=== PATIENT | male | born 1965 | race American Indian/Alaskan Native ===

== ENCOUNTER 2019-07-23 01:18 | Inpatient (IN) | payer OTHER ==
[2019-07-23] MEDS ORDERED: SODIUM CHLORIDE 0.9% 500 ML 500 ML ONE (01:40)
[2019-07-23] MEDS ORDERED: SODIUM CHLORIDE 0.9% 500 ML 500 ML IV ONE (01:43)
[2019-07-23] MEDS ORDERED: ACETAMINOPHEN 500 MG TAB PO ONE (01:44)
[2019-07-23] MEDS ORDERED: CEFEPIME/NS 2 GM/100 ML 2 GM/100 ML BAG IV ONE (01:45)
[2019-07-23] MEDS ORDERED: ACETAMINOPHEN 650 MG RECT SUPP PR ONE ×2 (01:52→06:53)
--- NOTE | 2019-07-23 02:24 | XRay Report ---
CHEST 1 VIEW 07/23/2019 1:55 AM INDICATION / CLINICAL INFORMATION: sob. COMPARISON: None available. FINDINGS: SUPPORT DEVICES: None. HEART / MEDIASTINUM: No significant abnormality. LUNGS / PLEURA: Mild perihilar interstitial edema. No acute airspace disease. No significant pleural effusion. No pneumothorax. ADDITIONAL FINDINGS: No significant additional findings. IMPRESSION: 1. Mild pulmonary edema. Signer Name: Usman Simmons MD Signed: 07/23/2019 2:20 AM Workstation Name: [id number]
[2019-07-23] MEDS ORDERED: SODIUM CHLORIDE 0.9% 1000 ML 1,000 ML ONE ×2 (02:48→11:42)
[2019-07-23] MEDS ORDERED: MIDAZOLAM 5 MG/5 ML INJ MDV IV ONE (02:55)
[2019-07-23] MEDS ORDERED: SUCCINYLCHOLINE CHLORIDE 200 MG/10 ML INJ MDV ONE (02:55)
[2019-07-23] MEDS ORDERED: ETOMIDATE 20 MG/10 ML INJ IV ONE ×2 (02:55→02:58)
[2019-07-23] MEDS ORDERED: SUCCINYLCHOLINE CHLORIDE 200 MG/10 ML INJ MDV IV ONE (02:58)
[2019-07-23] MEDS ORDERED: PROPOFOL 1,000 MG/100 ML BOTTLE IV ONE (02:59)
[2019-07-23] MEDS ORDERED: PROPOFOL 1,000 MG/100 ML BOTTLE IV SCH (03:00)
[2019-07-23] MEDS ORDERED: SODIUM CHLORIDE 0.9% 1000 ML 1,000 ML IV ONE ×5 (03:00→16:02)
[2019-07-23 03:10] LABS: Basophils % (Auto) 0.4 % (0.0-1.8); Eosinophils % (Auto) 0.1 % (0.0-4.3); Hematocrit 31.9 % (35.5-45.6); Hemoglobin 10.3 gm/dl (11.8-15.2); Lymphocytes # (Auto) 0.8 K/mm3 (1.2-5.4); Mean Corpuscular HGB Conc 33 % (32-34); Mean Corpuscular Volume 90 fl (84-94); Monocytes % (Auto) 0.4 % (0.0-7.3); Platelet Count 349 K/mm3 (140-440); Red Blood Count 3.53 M/mm3 (3.65-5.03)
[2019-07-23 03:25] LABS: Calcium 8.7 mg/dL (8.4-10.2)
[2019-07-23] MEDS ORDERED: MIDAZOLAM 5 MG/5 ML INJ MDV IV NR (03:25)
--- NOTE | 2019-07-23 03:27 | XRay Report ---
CHEST 1 VIEW 07/23/2019 3:02 AM INDICATION / CLINICAL INFORMATION: post-intubation. COMPARISON: 1:55 AM FINDINGS: SUPPORT DEVICES: Interval placement of endotracheal tube with the tip 5.5 cm above the ranjeet in expe cted position. HEART / MEDIASTINUM: Stable. LUNGS / PLEURA: Interval increase in perihilar densities. No pneumothorax. ADDITIONAL FINDINGS: No significant additional findings. IMPRESSION: 1. ET tube in expected position. 2. Interval increase in perihilar densities. Signer Name: Usman Simmons MD Signed: 07/23/2019 3:22 AM Workstation Name: [id number]
--- NOTE | 2019-07-23 03:29 | Emergency Department Report ---
ED Shortness of Breath HPI - General Chief Complaint: Dyspnea/Respdistress Stated Complaint: SOB/CHEST PAIN Time Seen by Provider: 07/23/19 01:38 Source: family, EMS Mode of arrival: Stretcher Limitations: No Limitations - History of Present Illness Initial Comments: 54-year-old male, history of hypertension and end-stage renal disease presents to ED with chest pain, shortness of breath. Patient does home hemodialysis for which his niece assists him with. Tonight, approximately 1 hour prior to arrival, niece was shading dialysis on the patient. Niece reports that there were "lots of bubbles" in the IV line. She states she called the on-call he modialysis nurse for assistance, however, the bubbles did not resolve. Patient then began complaining of right-sided chest pain and shortness of breath. He also had an episode of emesis and diarrhea. EMS was called. They reported patient had O2 sats in the 70s on room air. Also stated patient was hypotensive en route. Patient states chest pain has improved somewhat. MD Complaint: shortness of breath, chest pain -: hour(s) (1) Severity: severe Consistency: constant Improves With: nothing Worsens With: nothing Associated Symptoms: chest pain Treatments Prior to Arrival: oxygen - Related Data Home Oxygen Therapy: No Allergies Allergy/AdvReac Type Severity Reaction Status Date / Time No Known Allergies Allergy Unverified 07/23/19 01:49 ED Review of Systems ROS: Stated complaint: SOB/CHEST PAIN Other details as noted in HPI Comment: All other systems reviewed and negative Respiratory: shortness of breath Cardiovascular: chest pain ED Past Medical Hx - Past Medical History Previous Medical History?: Yes Hx Hypertension: Yes Additional medical history: Dialysis x 1 year - Surgical History Past Surgical History?: Yes Additional Surgical History: grafts left upper arm - Social History Smoking Status: Never Smoker Substance Use Type: Prescribed ED Physical Exam - General Limitations: No Limitations General appearance: alert, anxious, in distress - Head Head exam: Present: atraumatic, normocephalic - Eye Eye exam: Present: normal appearance - ENT ENT exam: Present: mucous membranes moist - Neck Neck exam: Present: normal inspection - Respiratory Respiratory exam: Present: normal lung sounds bilaterally, respiratory distress, other (tachypnea present) - Cardiovascular Cardiovascular Exam: Present: normal rhythm, tachycardia - GI/Abdominal GI/Abdominal exam: Present: soft. Absent: distended, tenderness - Extremities Exam Extremities exam: Present: normal inspection - Neurological Exam Neurological exam: Present: alert, oriented X3 - Psychiatric Psychiatric exam: Present: anxious - Skin Skin exam: Present: warm, dry, intact, normal color ED Course Vital Signs 07/23/19 07/23/19 07/23/19 01:30 01:33 01:42 Temperature 101.5 F H Pulse Rate 143 H 148 H 140 H Respiratory 40 H 44 H 32 H Rate Blood Pressure 105/50 105/50 105/50 O2 Sat by Pulse 100 96 100 Oximetry 07/23/19 07/23/19 07/23/19 01:45 02:01 02:15 Temperature Pulse Rate 139 H 137 H 149 H Respiratory 15 22 24 Rate Blood Pressure 77/45 77/45 104/40 O2 Sat by Pulse 99 100 100 Oximetry 07/23/19 07/23/19 07/23/19 02:31 02:45 03:00 Temperature Pulse Rate 163 H 157 H 167 H Respiratory 46 H 50 H Rate Blood Pressure 127/94 115/43 141/77 O2 Sat by Pulse 100 93 Oximetry 07/23/19 07/23/19 07/23/19 03:01 03:15 03:31 Temperature Pulse Rate 157 H 154 H 156 H Respiratory 37 H 29 H 36 H Rate Blood Pressure 138/73 153/80 148/88 O2 Sat by Pulse 87 86 Oximetry 07/23/19 07/23/19 07/23/19 03:45 04:00 04:15 Temperature Pulse Rate 161 H 151 H 165 H Respiratory 36 H 38 H 38 H Rate Blood Pressure 115/44 122/58 O2 Sat by Pulse 93 90 87 Oximetry 07/23/19 07/23/19 04:31 04:45 Temperature Pulse Rate 155 H 158 H Respiratory 37 H 37 H Rate Blood Pressure 134/68 134/68 O2 Sat by Pulse 86 90 Oximetry - Reevaluation(s) Reevaluation #1: 07/23/19 06:32 Pt now has an IV in the CA after multiple attempts by nurses and myself. Spoke w/ Dr Jonas, will obtain CTA - Consultations Consultation #1: 07/23/19 03:59 Spoke w/ home staging specialist, Dr Blair. States symptoms consitent with possible air embolism. Needs hyperbaric chamber. Will contact [facility]. 07/23/19 04:10 Received call back from [facility] rel[facility]. States they only do outpt hyperbarics. 07/23/19 04:16 Spoke w/ [facility], no hyperbarics. States they stopped hyperbarics "a while ago." 07/23/19 05:42 I have reached out to all hospitals in the area. This includes: - [facility] - [facility] - [facility] None of these places perform hyperbarics on intubated inpatients such as Mr Echols. I have spoken with Dr Blair and he is aware. Will admit here for supportive care. Consultation #2: 07/23/19 06:03 Spoke w/ Dr Cox, gripper installer. Will see pt. - Central Line Placement Right Femoral Consent Obtained: verbal consent Time Out Performed: Yes Patient Placed on Monitor/Pulse Ox: Yes MD Prep: mask, gown, gloves Central Line Prep: Chlorhexidine scrub Local Anesthesia Used: Lidocaine 1% Amount of Anesthesia Used (mls): 3 Ultrasound Used for Placement: No Central Line Lumen Inserted: triple Bloods Obtained for Lab: Yes Central Line Position: good blood return, all ports aspirated, flus, sutured in place with nyl Dressing Applied: Tegaderm Patient Tolerated Procedure: well Complications: none - Intubation Time Out Performed: Yes Sedative: Etomidate Mg Given: 20 Paralytic: Succinylcholine Mg Given: 200 Laryngoscope: Cory Size: 4 ET Tube Size: 7.5 Tube Placement Confirmation: visualized tube passing t, equal breath sounds bilat, no breath sounds over epi, confirmation by capnometr Patient Tolerated Procedure: well Intubation Complications: none ED Medical Decision Making - Lab Data Result diagrams: 07/23/19 02:53 07/23/19 02:53 - EKG Data -: EKG Interpreted by Ks EKG shows normal: sinus rhythm, axis, intervals, QRS complexes, ST-T waves Rate: tachycardia (rate 150) - EKG Data Interpretation: other (ST depressions, likely rate related) - Radiology Data Radiology results: report reviewed, image reviewed - Medical Decision Making 54-year-old male with likely air emboli. Patient began having complaining of chest pain and shortness of breath as his niece was initiating hemodialysis on him. There are a lot of air bubbles reportedly in the IV line. Patient was initially hypotensive, however blood pressure responded to IV fluids. Patient was initially placed on BiPAP, but was unable to tolerate and became quite anxious and tachypnea, so patient was intubated. Patient was not given the sepsis 30 mL per KG bolus due to the edema seen on his chest x-ray, and the large amount of IV fluids that he would need due to his body habitus. Blood c ultures were drawn and antibiotics initiated due to patient's fever, however this could also be consistent with air emboli. Unable to obtain CTA Chest due to inadequate IV access. Spoke with Dr. Blair, home staging specialist, who recommended transferring patient to the facility with hyperbaric chamber. However, no facility found that was able to accommodate an intubated patient. The patient's niece and sister at bedside. I have explained that patient situation is very grave, that cardiac arrest is very likely. They have exhibited understanding. Will admit to hospitalist. - Differential Diagnosis air embolism, pneumonia, ACS, PE, Critical Care Time: Yes Critical care time in (mins) excluding proc time.: 60 Critical care attestation.: If time is entered above; I have spent that time in minutes in the direct care of this critically ill patient, excluding procedure time. Critical Care Time: 60 minutes ED Disposition Clinical Impression: Acute respiratory failure with hypoxia, Air embolism, Lactic acidosis, ESRD (end stage renal disease), SIRS (systemic inflammatory response syndrome), Pulmonary edema Disposition: 09 OP ADMIT IP TO THIS HOSP Is pt being admited?: Yes Condition: Stable Instructions: Pulmonary Edema (ED) Referrals: PRIMARY CARE, [Primary Care Provider] - 3-5 Days Time of Disposition: 05:49
[2019-07-23] MEDS ORDERED: VANCOMYCIN/NS 1 GM/250 ML 1 GM/250 ML BAG IV ONE (03:32)
[2019-07-23 03:36] LABS: INR 1.22 (0.87-1.13)
[2019-07-23] MEDS ORDERED: VANCOMYCIN 2,000 MG in SODIUM CHLORIDE 0.9% 500 ML 500 ML IV ONE (03:45)
[2019-07-23] MEDS ORDERED: VANCOMYCIN 2,000 MG in SODIUM CHLORIDE 0.9% 500 ML 500 ML IV SCH (03:45)
[2019-07-23 03:55] LABS: Bacteria,Urine 1+ /HPF (Negative); Bilirubin,Urine NEG (Negative); Blood,Urine NEG (Negative); Color,Urine Yellow (Yellow); Mucus,Urine FEW /HPF; Urobilinogen,Urine < 2.0 mg/dL (<2.0)
[2019-07-23 04:11] LABS: Chol/HDL Ratio 5.12 %
[2019-07-23] MEDS: MIDAZOLAM 100 MG in SODIUM CHLORIDE 0.9% 80 ML IV SCH ×2 (05:00→16:09)
[2019-07-23] MEDS: NORepinephrine/NS 4 MG-250 ML 4 MG/250 ML BAG IV SCH ×5 (06:15→16:37)
[2019-07-23] MEDS ORDERED: NORepinephrine/NS 4 MG-250 ML 4 MG/250 ML BAG IV ONE (06:17)
[2019-07-23] MEDS ORDERED: PIPERACIL/TAZOBACTA 4.5/NS 100 0 GM/0 ML VIAL IV ONE (06:29)
[2019-07-23] MEDS: PIPERACIL-TAZO 2.25 GM/50 ML 2.25 GM/50 ML BAG IV ONE ×2 (06:30→09:29)
[2019-07-23] MEDS ORDERED: METOPROLOL TARTRATE 5 MG/5 ML INJ IV ONE (06:31)
[2019-07-23] MEDS ORDERED: ONDANSETRON 4 MG/2 ML INJ IV PRN (06:55)
[2019-07-23] MEDS ORDERED: ACETAMINOPHEN 650 MG RECT SUPP PR PRN (06:55)
--- NOTE | 2019-07-23 07:01 | History and Physical Report ---
<REGINO MARKS - Last Filed: 07/23/19 06:57> History of Present Illness Date of examination: 07/23/19 Date of admission: 07/23/2019 Chief complaint: SOB and chest pain History of present illness: 54-year-old male with ESRD on hemodialysis who presents to [facility] ED with complaints of shortness of breath and right sided chest pain. Patient niece is present at bedside and has assisted with providing history. Patient's niece is also the sole caregiver. According to nicrow, she was assisting pt with HD last night when they noticed a large amount of air in the HD line/tubing. After patient complained of right sided chest pain and shortness of breath. Arnol called HD engineering inspection assistant nurse for advice. javascript application developer nurse referred to ED for further evaluation and treatment. Upon arriving at our facility patient was hypoxic with sats in low 70's on room air. He was placed on BiPAP, but continued to desat and subsequently intubated. Pulmonary was consulted and patient needs hyperbarics treatment. Several facilities in [place] was called for possible transfer. Unfortunately, so far none are able to perform hyperbarics on intubated pt. A call to [facility] has been placed, pending acceptance. Past History Past Medical History: diabetes, ESRD (on home HD (x1 year)) Past Surgical History: Other (JODY AV fistula) Social history: lives with family ( niece who is also caregiver) Family history: no significant family history Medications and Allergies Allergies Allergy/AdvReac Type Severity Reaction Status Date / Time No Known Allergies Allergy Unverified 07/23/19 01:49 Home Medications Medication Instructions Recorded Confirmed Last Taken Type Dextrose 50% in Water [D50W (25GM) 50 ml IV Q30MIN PRN syringe 07/23/19 Unknown Rx Syringe] Enoxaparin 30 mg SUB-Q QDAY syringe 07/23/19 Unknown Rx Midazolam 100 mg IV TITR vial 07/23/19 Unknown Rx Oseltamivir Phosphate [Tamiflu] 30 mg PO DAILY oralsyr 07/23/19 Unknown Rx Phenylephrine 100 mg IV TITR vial 07/23/19 Unknown Rx Sodium Bicarbonate 150 meq IV DIRECT vial 07/23/19 Unknown Rx Sodium Bicarbonate [SODIUM 50 meq IV ONCE PRN syringe 07/23/19 Unknown Rx BICARBONATE 50mEq Syringe] Sodium Chloride 0.9% Int [Sodium 10 ml IV BID syringe 07/23/19 Unknown Rx Chloride Flush Syringe 10 ml] Sodium Chloride 0.9% [NaCl 0.9% 100 ml IV TITR bag 07/23/19 Unknown Rx 100 ML] Vasopressin [Vasostrict] 20 unit IV DIRECT vial 07/23/19 Unknown Rx Active Meds: Active Medications Propofol (Diprivan 10 Mg/Ml) 1,000 mg in 100 mls @ 3.916 mls/hr IV TITR JOSEFINA; Protocol Last Titration: 07/23/19 04:00 Dose: 25 mcg/kg/min, 19.582 mls/hr Documented by: Midazolam HCl 100 mg/ Sodium (Chloride) 100 mls @ 2 mls/hr IV TITR JOSEFINA; Protocol Last Admin: 07/23/19 05:00 Dose: 2 mg/hr, 2 mls/hr Documented by: Piperacillin Sod/Tazobactam Sod (Zosyn/Ns 2.25 Gm/50ml) 2.25 gm in 50 mls @ 100 mls/hr IV ONCE ONE; Protocol Stop: 07/23/19 07:29 Last Admin: 07/23/19 06:30 Dose: 100 mls/hr Documented by: Norepinephrine (Levophed Drip 4 Mg/Ns 250 Ml) 4 mg in 250 mls @ 7.5 mls/hr IV TITR JOSEFINA; Protocol Last Admin: 07/23/19 06:15 Dose: 2 mcg/min, 7.5 mls/hr Documented by: Midazolam HCl (Versed) 5 mg IV ONCE NR Stop: 07/23/19 08:15 Last Admin: 07/23/19 03:27 Dose: 5 mg Documented by: Review of Systems ROS unobtainable: due to mental status Exam - Physical Exam Narrative exam: General appearance: Present: Intubated, sedated, obese, well-developed, adult male - EENT Eyes: Present: PERRL, EOM intact ENT: hearing intact, normal - Neck Neck: Present: supple, normal ROM - Respiratory Respiratory effort: Non-labored Respiratory: bilateral: CTA with diminished bases bilaterally - Cardiovascular Heart rate:158 (bpm) Rhythm:ST Heart Sounds: Present: S1, S2. - Extremities Extremities: no ischemia, pulses intact - Peripheral Assessment Peripheral Pulses: within normal limits - Abdominal General gastrointestinal: Obese, soft, non-tender, normal bowel sounds, - Integumentary Integumentary: Present: warm, dry - Musculoskeletal Musculoskeletal: Deferred -Neurological Neurological: CN II-XII grossly intact - Psychiatric Psychiatric: Unable to assess - Constitutional Vitals: Temp Pulse Resp BP Pulse Ox 99.9 F H 136 H 37 H 104/72 90 07/23/19 05:30 07/23/19 06:49 07/23/19 04:45 07/23/19 06:49 07/23/19 04:45 Results - Labs CBC & Chem 7: 07/23/19 02:53 07/23/19 02:53 Labs: Laboratory Last Values WBC 6.9 K/mm3 (4.5-11.0) 07/23/19 02:53 RBC 3.53 M/mm3 (3.65-5.03) L 07/23/19 02:53 Hgb 10.3 gm/dl (11.8-15.2) L 07/23/19 02:53 Hct 31.9 % (35.5-45.6) L 07/23/19 02:53 MCV 90 fl (84-94) 07/23/19 02:53 MCH 29 pg (28-32) 07/23/19 02:53 MCHC 33 % (32-34) 07/23/19 02:53 RDW 14.0 % (13.2-15.2) 07/23/19 02:53 Plt Count 349 K/mm3 (140-440) 07/23/19 02:53 Lymph % (Auto) 12.0 % (13.4-35.0) L 07/23/19 02:53 Emery % (Auto) 0.4 % (0.0-7.3) 07/23/19 02:53 Eos % (Auto) 0.1 % (0.0-4.3) 07/23/19 02:53 Baso % (Auto) 0.4 % (0.0-1.8) 07/23/19 02:53 Lymph # 0.8 K/mm3 (1.2-5.4) L 07/23/19 02:53 Emery # 0.0 K/mm3 (0.0-0.8) 07/23/19 02:53 Eos # 0.0 K/mm3 (0.0-0.4) 07/23/19 02:53 Baso # 0.0 K/mm3 (0.0-0.1) 07/23/19 02:53 Seg Neutrophils % 87.1 % (40.0-70.0) H 07/23/19 02:53 Seg Neutrophils # 6.0 K/mm3 (1.8-7.7) 07/23/19 02:53 PT 15.3 Sec. (12.2-14.9) H 07/23/19 02:53 INR 1.22 (0.87-1.13) H 07/23/19 02:53 APTT 28.0 Sec. (24.2-36.6) 07/23/19 02:53 POC ABG pH 7.305 (7.35-7.45) L 07/23/19 03:57 POC ABG pCO2 40.7 (35-45) 07/23/19 03:57 POC ABG pO2 64 (80-105) L 07/23/19 03:57 POC ABG HCO3 20.3 (22-26 mml/L) 07/23/19 03:57 POC ABG Total CO2 22 (23-27mmol/L) 07/23/19 03:57 POC ABG O2 Sat 90 07/23/19 03:57 POC ABG Base Excess -6 ((-2) - (+3)mmol/L) 07/23/19 03:57 FiO2 100 % 07/23/19 03:57 Sodium 141 mmol/L (137-145) 07/23/19 02:53 Potassium 3.4 mmol/L (3.6-5.0) L 07/23/19 02:53 Chloride 100.0 mmol/L (98-107) 07/23/19 02:53 Carbon Dioxide 20 mmol/L (22-30) L 07/23/19 02:53 Anion Gap 24 mmol/L 07/23/19 02:53 BUN 62 mg/dL (9-20) H 07/23/19 02:53 Creatinine 9.8 mg/dL (0.8-1.5) H 07/23/19 02:53 Estimated GFR 7 ml/min 07/23/19 02:53 BUN/Creatinine Ratio 6 % 07/23/19 02:53 Glucose 117 mg/dL (75-100) H 07/23/19 02:53 POC Glucose 131 (70-105) H 07/23/19 04:52 Lactic Acid 4.30 mmol/L (0.7-2.0) H* 07/23/19 05:08 Calcium 8.7 mg/dL (8.4-10.2) 07/23/19 02:53 Troponin T 0.068 ng/mL (0.00-0.029) H 07/23/19 02:53 NT-Pro-B Natriuret Pep 536.3 pg/mL (0-900) 07/23/19 02:53 Triglycerides 213 mg/dL (2-149) H 07/23/19 02:53 Cholesterol 164 mg/dL (50-199) 07/23/19 02:53 LDL Cholesterol Direct 112 mg/dL (50-130) 07/23/19 02:53 HDL Cholesterol 32 mg/dL (40-59) L 07/23/19 02:53 Cholesterol/HDL Ratio 5.12 % 07/23/19 02:53 Urine Color Yellow (Yellow) 07/23/19 03:30 Urine Turbidity Clear (Clear) 07/23/19 03:30 Urine pH 6.0 (5.0-7.0) 07/23/19 03:30 Ur Specific Everett 1.014 (1.003-1.030) 07/23/19 03:30 Urine Protein 100 mg/dl mg/dL (Negative) 07/23/19 03:30 Urine Glucose (UA) Neg mg/dL (Negative) 07/23/19 03:30 Urine Ketones Neg mg/dL (Negative) 07/23/19 03:30 Urine Blood Neg (Negative) 07/23/19 03:30 Urine Nitrite Neg (Negative) 07/23/19 03:30 Urine Bilirubin Neg (Negative) 07/23/19 03:30 Urine Urobilinogen < 2.0 mg/dL (<2.0) 07/23/19 03:30 Ur Leukocyte Esterase Sm (Negative) 07/23/19 03:30 Urine WBC (Auto) 11.0 /HPF (0.0-6.0) H 07/23/19 03:30 Urine RBC (Auto) 5.0 /HPF (0.0-6.0) 07/23/19 03:30 U Epithel Cells (Auto) < 1.0 /HPF (0-13.0) 07/23/19 03:30 Urine Bacteria (Auto) 1+ /HPF (Negative) 07/23/19 03:30 Urine Mucus Few /HPF 07/23/19 03:30 - Imaging and Cardiology Imaging and Cardiology: CXR: FINDINGS: SUPPORT DEVICES: None. HEART / MEDIASTINUM: No significant abnormality. LUNGS / PLEURA: Mild perihilar interstitial edema. No acute airspace disease. No significant pleural effusion. No pneumothorax. ADDITIONAL FINDINGS: No significant additional findings. IMPRESSION: 1. Mild pulmonary edema. Assessment and Plan Assessment and plan: 54-year-old male with ESRD on hemodialysis who presents to [facility] ED with complaints of shortness of breath and right sided chest pain. At the time of my donation patient is intubated and sedated. Patient is unable to provide history. Air embolism -CXR Mild pulmonary edema -Patient reports lots of bubbles in HD line/tubing -After patient complains of shortness of breath and CP Acute hypoxic respiratory failure -No Baseline home oxygen requirements -Currently intubated on vent -Monitor saturations -Monitor CO2 -Continue supplemental oxygen wean as tolerated ESRD on HD -on Home HD for the past year -Most recently dialyze 07/22/19; incomplete session due to large volume of air bubbles in Lactic acidosis -Lactic acid 4.30 ( trending down from 4.70) -on IV Abx -on IVF -continue to monitor Hypotension -SBP 100's -Unresponsive to fluid resuscitation -On IVF -On Levophed gtt -Continue to monitor BP -Hold all antihypertensive meds UTI -Hx of recurrent UTI -Urine WBC 11 -Urine culture pending -On IV Abx DVT PPX -on Lovenox Advance Directives: No VTE prophylaxis?: Chemical Plan of care discussed with patient/family: Yes <SHAILA MORALES - Last Filed: 07/24/19 00:29> History of Present Illness Date of admission: 07/23/19 06:55 Exam - Constitutional Vitals: Temp Pulse Resp BP Pulse Ox 99.4 F 85 20 150/130 99 07/23/19 16:00 07/23/19 16:21 07/23/19 16:21 07/23/19 16:41 07/23/19 16:21 Results - Labs CBC & Chem 7: 07/23/19 09:25 07/23/19 02:53 Labs: Laboratory Last Values WBC 15.8 K/mm3 (4.5-11.0) H 07/23/19 09:25 RBC 3.06 M/mm3 (3.65-5.03) L 07/23/19 09:25 Hgb 8.9 gm/dl (11.8-15.2) L 07/23/19 09:25 Hct 27.4 % (35.5-45.6) L 07/23/19 09:25 MCV 90 fl (84-94) 07/23/19 09:25 MCH 29 pg (28-32) 07/23/19 09:25 MCHC 33 % (32-34) 07/23/19 09:25 RDW 14.4 % (13.2-15.2) 07/23/19 09:25 Plt Count 268 K/mm3 (140-440) 07/23/19 09:25 Lymph % (Auto) 12.0 % (13.4-35.0) L 07/23/19 02:53 Emery % (Auto) 0.4 % (0.0-7.3) 07/23/19 02:53 Eos % (Auto) 0.1 % (0.0-4.3) 07/23/19 02:53 Baso % (Auto) 0.4 % (0.0-1.8) 07/23/19 02:53 Lymph # 0.8 K/mm3 (1.2-5.4) L 07/23/19 02:53 Emery # 0.0 K/mm3 (0.0-0.8) 07/23/19 02:53 Eos # 0.0 K/mm3 (0.0-0.4) 07/23/19 02:53 Baso # 0.0 K/mm3 (0.0-0.1) 07/23/19 02:53 Add Manual Diff Complete 07/23/19 09:25 Total Counted 100 07/23/19 09:25 Seg Neutrophils % In School Suspension Aide 07/23/19 09:25 Seg Neuts % (Manual) 83.0 % (40.0-70.0) H 07/23/19 09:25 Band Neutrophils % 11.0 % 07/23/19 09:25 Lymphocytes % (Manual) 1.0 % (13.4-35.0) L 07/23/19 09:25 Reactive Lymphs % (Man) 0 % 07/23/19 09:25 Monocytes % (Manual) 0 % (0.0-7.3) 07/23/19 09:25 Eosinophils % (Manual) 0 % (0.0-4.3) 07/23/19 09:25 Basophils % (Manual) 0 % (0.0-1.8) 07/23/19 09:25 Metamyelocytes % 5.0 % 07/23/19 09:25 Myelocytes % 0 % 07/23/19 09:25 Promyelocytes % 0 % 07/23/19 09:25 Blast Cells % 0 % 07/23/19 09:25 Nucleated RBC % 1.0 % (0.0-0.9) H 07/23/19 09:25 Seg Neutrophils # 6.0 K/mm3 (1.8-7.7) 07/23/19 02:53 Seg Neutrophils # Man 13.1 K/mm3 (1.8-7.7) H 07/23/19 09:25 Band Neutrophils # 1.7 K/mm3 07/23/19 09:25 Lymphocytes # (Manual) 0.2 K/mm3 (1.2-5.4) L 07/23/19 09:25 Abs React Lymphs (Man) 0.0 K/mm3 07/23/19 09:25 Monocytes # (Manual) 0.0 K/mm3 (0.0-0.8) 07/23/19 09:25 Eosinophils # (Manual) 0.0 K/mm3 (0.0-0.4) 07/23/19 09:25 Basophils # (Manual) 0.0 K/mm3 (0.0-0.1) 07/23/19 09:25 Metamyelocytes # 0.8 K/mm3 07/23/19 09:25 Myelocytes # 0.0 K/mm3 07/23/19 09:25 Promyelocytes # 0.0 K/mm3 07/23/19 09:25 Blast Cells # 0.0 K/mm3 07/23/19 09:25 WBC Morphology Not Reportable 07/23/19 09:25 Hypersegmented Neuts Not Reportable 07/23/19 09:25 Hyposegmented Neuts Not Reportable 07/23/19 09:25 Hypogranular Neuts Not Reportable 07/23/19 09:25 Smudge Cells Not Reportable 07/23/19 09:25 Toxic Granulation Not Reportable 07/23/19 09:25 Toxic Vacuolation 1+ 07/23/19 09:25 Dohle Bodies Not Reportable 07/23/19 09:25 Pelger-Huet Anomaly Not Reportable 07/23/19 09:25 Mago Rods Not Reportable 07/23/19 09:25 Platelet Estimate Consistent w auto 07/23/19 09:25 Clumped Platelets Not Reportable 07/23/19 09:25 Plt Clumps, EDTA Not Reportable 07/23/19 09:25 Large Platelets Few 07/23/19 09:25 Giant Platelets Not Reportable 07/23/19 09:25 Platelet Satelliting Not Reportable 07/23/19 09:25 Plt Morphology Comment Not Reportable 07/23/19 09:25 RBC Morphology Not Reportable 07/23/19 09:25 Dimorphic RBCs Not Reportable 07/23/19 09:25 Polychromasia Not Reportable 07/23/19 09:25 Hypochromasia Not Reportable 07/23/19 09:25 Poikilocytosis Not Reportable 07/23/19 09:25 Anisocytosis 1+ 07/23/19 09:25 Microcytosis Not Reportable 07/23/19 09:25 Macrocytosis Not Reportable 07/23/19 09:25 Spherocytes Not Reportable 07/23/19 09:25 Pappenheimer Bodies Not Reportable 07/23/19 09:25 Sickle Cells Not Reportable 07/23/19 09:25 Target Cells Not Reportable 07/23/19 09:25 Tear Drop Cells Not Reportable 07/23/19 09:25 Ovalocytes Not Reportable 07/23/19 09:25 Helmet Cells Not Reportable 07/23/19 09:25 Rao-Vici Bodies Not Reportable 07/23/19 09:25 Milroy Rings Not Reportable 07/23/19 09:25 Noemi Cells Not Reportable 07/23/19 09:25 Bite Cells Not Reportable 07/23/19 09:25 Crenated Cell Not Reportable 07/23/19 09:25 Elliptocytes Not Reportable 07/23/19 09:25 Acanthocytes (Spur) Not Reportable 07/23/19 09:25 Rouleaux Not Reportable 07/23/19 09:25 Hemoglobin C Crystals Not Reportable 07/23/19 09:25 Schistocytes Not Reportable 07/23/19 09:25 Malaria parasites Not Reportable 07/23/19 09:25 Shahriar Bodies Not Reportable 07/23/19 09:25 Hem Pathologist Commnt No 07/23/19 09:25 PT 15.3 Sec. (12.2-14.9) H 07/23/19 02:53 INR 1.22 (0.87-1.13) H 07/23/19 02:53 APTT 28.0 Sec. (24.2-36.6) 07/23/19 02:53 POC ABG pH 7.295 (7.35-7.45) L 07/23/19 11:11 POC ABG pCO2 37.7 (35-45) 07/23/19 11:11 POC ABG pO2 55 (80-105) L 07/23/19 11:11 POC ABG HCO3 18.4 (22-26 mml/L) 07/23/19 11:11 POC ABG Total CO2 19 (23-27mmol/L) 07/23/19 11:11 POC ABG O2 Sat 85 07/23/19 11:11 POC ABG Base Excess -8 ((-2) - (+3)mmol/L) 07/23/19 11:11 FiO2 100 % 07/23/19 11:11 Sodium 141 mmol/L (137-145) 07/23/19 02:53 Potassium 3.4 mmol/L (3.6-5.0) L 07/23/19 02:53 Chloride 100.0 mmol/L (98-107) 07/23/19 02:53 Carbon Dioxide 20 mmol/L (22-30) L 07/23/19 02:53 Anion Gap 24 mmol/L 07/23/19 02:53 BUN 62 mg/dL (9-20) H 07/23/19 02:53 Creatinine 9.8 mg/dL (0.8-1.5) H 07/23/19 02:53 Estimated GFR 7 ml/min 07/23/19 02:53 BUN/Creatinine Ratio 6 % 07/23/19 02:53 Glucose 117 mg/dL (75-100) H 07/23/19 02:53 POC Glucose 79 (70-105) 07/23/19 16:15 Lactic Acid 5.20 mmol/L (0.7-2.0) H* 07/23/19 10:33 Calcium 8.7 mg/dL (8.4-10.2) 07/23/19 02:53 Troponin T 0.068 ng/mL (0.00-0.029) H 07/23/19 02:53 NT-Pro-B Natriuret Pep 536.3 pg/mL (0-900) 07/23/19 02:53 Triglycerides 213 mg/dL (2-149) H 07/23/19 02:53 Cholesterol 164 mg/dL (50-199) 07/23/19 02:53 LDL Cholesterol Direct 112 mg/dL (50-130) 07/23/19 02:53 HDL Cholesterol 32 mg/dL (40-59) L 07/23/19 02:53 Cholesterol/HDL Ratio 5.12 % 07/23/19 02:53 Urine Color Yellow (Yellow) 07/23/19 03:30 Urine Turbidity Clear (Clear) 07/23/19 03:30 Urine pH 6.0 (5.0-7.0) 07/23/19 03:30 Ur Specific Everett 1.014 (1.003-1.030) 07/23/19 03:30 Urine Protein 100 mg/dl mg/dL (Negative) 07/23/19 03:30 Urine Glucose (UA) Neg mg/dL (Negative) 07/23/19 03:30 Urine Ketones Neg mg/dL (Negative) 07/23/19 03:30 Urine Blood Neg (Negative) 07/23/19 03:30 Urine Nitrite Neg (Negative) 07/23/19 03:30 Urine Bilirubin Neg (Negative) 07/23/19 03:30 Urine Urobilinogen < 2.0 mg/dL (<2.0) 07/23/19 03:30 Ur Leukocyte Esterase Sm (Negative) 07/23/19 03:30 Urine WBC (Auto) 11.0 /HPF (0.0-6.0) H 07/23/19 03:30 Urine RBC (Auto) 5.0 /HPF (0.0-6.0) 07/23/19 03:30 U Epithel Cells (Auto) < 1.0 /HPF (0-13.0) 07/23/19 03:30 Urine Bacteria (Auto) 1+ /HPF (Negative) 07/23/19 03:30 Urine Mucus Few /HPF 07/23/19 03:30 Assessment and Plan Assessment and plan: This is a 54-year-old man with history of diabets, end-stage renal disease who does home hemodialysis was brought to the emergency room for evaluation. The patient was getting his hemodialysis done with the help of his knees at home, she stated that lots of bubbles got in the line, shortly after the patient developed chest pain, shortness of breath. EMS stated that his sats was in the 70s and he was hypertensive. In the emergency room he was on the BiPAP which she failed and was subsequently intubated. He is also sedated and was given vancomycin and cefepime fpor SIRS. His initial heart rate was in the 170s, he was given Tylenol which brought him down to the 130s. Blood pressure has been difficult to obtain, his blood pressure now is in the 70s, start Levophed drip, also start Zosyn and continue vancomycin, consult infectious disease. Patient was made to lie in his left side, IV Lopressor given one time for tachycardia .Emergency room physician and made several calls to transfer the patient for hyperbaric treatment, none is accepted the patient because he is vented. Calls were made to [facility], [facility] [place], [place], [facility] [place]. I have spoken with the family at length regarding the gravity of the situation. I have discussed the case with the [facility] in [place], they have accepted the patient they will get back to us. Care was turned over to Dr. Johnson, Dr Blair updated. CT chest, head are pending, please follow CCT 40 minutes
[2019-07-23] MEDS ORDERED: POTASSIUM CHLORIDE 10 MEQ 10 MEQ/100 ML BAG IV ONE (07:04)
[2019-07-23] MEDS: fentaNYL 100 MCG/2 ML INJ IV PRN ×2 (07:55→08:35)
[2019-07-23] MEDS: fentaNYL DRIP Premix 2,000 MCG/100 ML BAG IV SCH ×2 (08:00→13:51)
--- NOTE | 2019-07-23 09:04 | Cat Scan Report ---
CT HEAD WITHOUT CONTRAST INDICATION / CLINICAL INFORMATION: AMS. TECHNIQUE: Axial imaging performed from the skull apex through the skull base without the use of cont rast. Sagittal and coronal reformatted images. All CT scans at this location are performed using CT dose reduction for ALARA by means of automated exposure control. COMPARISON: None available. FINDINGS: CEREBRAL PARENCHYMA: Mild nonspecific chronic periventricular white matter changes are identified. Th e remaining brain parenchyma demonstrates normal density. HEMORRHAGE: None. EXTRA-AXIAL SPACES: Normal in size and morphology for the patient's age. VENTRICULAR SYSTEM: Normal in size and morphology for the patient's age. MIDLINE SHIFT OR HERNIATION: None. CEREBELLUM / BRAINSTEM: No significant abnormality. CALVARIUM: No significant abnormality. ORBITS: Normal as visualized. PARANASAL SINUSES / MASTOID AIR CELLS: Normal as visualized. SOFT TISSUES of HEAD: No significant abnormality. ADDITIONAL FINDINGS: None. IMPRESSION: No acute intracranial abnormality. Nonspecific chronic white matter changes which are likely appropri ate for this person's age. Signer Name: Arturo Ferrari Jr, MD Signed: 07/23/2019 9:00 AM Workstation Name: [id number]
[2019-07-23 09:49] LABS: Hematocrit 27.4 % (35.5-45.6); Hemoglobin 8.9 gm/dl (11.8-15.2); Mean Corpuscular HGB Conc 33 % (32-34); Mean Corpuscular Volume 90 fl (84-94); Platelet Count 268 K/mm3 (140-440); Red Blood Count 3.06 M/mm3 (3.65-5.03); Red Cell Distribution Width 14.4 % (13.2-15.2)
[2019-07-23] MEDS ORDERED: ENOXAPARIN 30 MG/0.3 ML INJ SUB-Q SCH (10:00)
--- NOTE | 2019-07-23 10:13 | Cat Scan Report ---
CTA CHEST WITH CONTRAST INDICATION : Shortness of breath. TECHNIQUE: Axial imaging performed through the chest, with contrast bolus timing set to maximize opa cification of the pulmonary arteries. Sagittal and coronal reformatted images. 3-plane MIP reformatte d images were obtained. All CT scans at this location are performed using CT dose reduction for ALAR A by means of automated exposure control. 100 mL of intravenous contrast administered. COMPARISON: None FINDINGS: Bolus: Contrast bolus timing is adequate. The images are somewhat limited secondary to breathing mot ion artifact. The patient is intubated. Resolution in the distal, small pulmonary arteries is limited . PTE: No filling defect is present to suggest PTE. Limited evaluation of the distal, small pulmonary arteries. Mediastinum: Mild cardiomegaly. No pericardial effusion. The mediastinal vessels are within normal l imits. No pathologic mediastinal adenopathy. A nasogastric tube is coiled upon itself in the esophag us. Lungs: Moderate to large areas of consolidation are identified in the posterior upper lobes and lowe r lobes. It is unclear if this represents infectious consolidations or large areas of atelectasis. Th e anterior lung zones are unremarkable. Small bilateral layering pleural effusions are noted. No pneu mothorax. Bones: Degenerative changes in the spine with nothing acute. Upper abdomen: Limited imaging of the upper abdomen shows nothing acute. IMPRESSION: No evidence for pulmonary embolus although the distal, small pulmonary arteries are poorly imaged. Mild CHF/volume overload. Bilateral lung consolidations as described. Large areas of atelectasis versus infection. The nasogastric tube is coiled in the distal esophagus. Signer Name: Arturo Ferrari Jr, MD Signed: 07/23/2019 10:09 AM Workstation Name: [id number]
[2019-07-23 11:08] LABS: Band Neutrophils # (Manual) 1.7 K/mm3; Basophils % (Manual) 0 % (0.0-1.8); Eosinophils % (Manual) 0 % (0.0-4.3); Monocytes % (Manual) 0 % (0.0-7.3); Total Cells Counted 100; Toxic Vacuolation 1+
[2019-07-23 11:09] LABS: Anisocytosis 1+; Large Platelets Few; Platelet Estimate Consistent w Auto
--- NOTE | 2019-07-23 11:36 | Consultation ---
History of Present Illness Consult date: 07/23/19 Requesting physician: DEJAH FLYNN Reason for consult: hypoxemia History of present illness: 54 y/o, obese male on HD at home (most likely PD) admitted with acute hypoxic respiratory failure, most likely secondary to air embolism. Patient is heavily sedated on the VENT. 100% FiO2 and PEEP of 10 with last PAO2 of 55 on these settings. Per notes, niece was helping with HD catheter and noticed a lot of bubbles in the line. When she called the HD nurse they instructed her to come to ED. Patient was awake and alert initially from what I can tell by charting and then decompensated in the ED. Intubated and now requires pressor therapy. Most likely this is from air embolism. Past History Past Medical History: diabetes, ESRD (on home HD (x1 year)) Past Surgical History: Other (JODY AV fistula) Social history: lives with family ( niece who is also caregiver) Family history: no significant family history Medications and Allergies Allergies Allergy/AdvReac Type Severity Reaction Status Date / Time No Known Allergies Allergy Unverified 07/23/19 01:49 Active Meds: Active Medications Acetaminophen (Tylenol) 650 mg NM Q4H PRN PRN Reason: Pain MILD(1-3)/Fever >100.5/HAYES Last Admin: 07/23/19 10:03 Dose: 650 mg Documented by: Enoxaparin Sodium (Enoxaparin) 30 mg SUB-Q QDAY JOSEFINA Fentanyl (Sublimaze) 50 mcg IV Q10MIN PRN PRN Reason: ANALGESIA Last Admin: 07/23/19 08:35 Dose: 50 mcg Documented by: Midazolam HCl 100 mg/ Sodium (Chloride) 100 mls @ 2 mls/hr IV TITR JOSEFINA; Protocol Last Titration: 07/23/19 07:00 Dose: 5 mg/hr, 5 mls/hr Documented by: Norepinephrine (Levophed Drip 4 Mg/Ns 250 Ml) 4 mg in 250 mls @ 7.5 mls/hr IV TITR JOSEFINA; Protocol Last Admin: 07/23/19 11:31 Dose: 24 mcg/min, 90 mls/hr Documented by: Piperacillin Sod/Tazobactam Sod (Zosyn/Ns 2.25 Gm/50ml) 2.25 gm in 50 mls @ 100 mls/hr IV Q8HR JOSEFINA; Protocol Fentanyl Citrate (Fentanyl Drip Premix) 2,000 mcg in 100 mls @ 6.527 mls/hr IV TITR JOSEFINA; Protocol Last Titration: 07/23/19 08:35 Dose: 2 mcg/kg/hr, 13.054 mls/hr Documented by: Ondansetron HCl (Zofran) 4 mg IV Q8H PRN PRN Reason: Nausea And Vomiting Sodium Chloride (Sodium Chloride Flush Syringe 10 Ml) 10 ml IV BID JOSEFINA Sodium Chloride (Sodium Chloride Flush Syringe 10 Ml) 10 ml IV PRN PRN PRN Reason: LINE FLUSH Physical Examination Vital signs: Vital Signs Pulse Resp BP Pulse Ox 143 H 40 H 105/50 100 07/23/19 01:30 07/23/19 01:30 07/23/19 01:30 07/23/19 01:30 Results - Laboratory Findings CBC and BMP: 07/23/19 09:25 07/23/19 02:53 ABG POC ABG pH 7.295 (7.35-7.45) L 07/23/19 11:11 POC ABG pCO2 37.7 (35-45) 07/23/19 11:11 POC ABG pO2 55 (80-105) L 07/23/19 11:11 POC ABG HCO3 18.4 (22-26 mml/L) 07/23/19 11:11 POC ABG Total CO2 19 (23-27mmol/L) 07/23/19 11:11 POC ABG O2 Sat 85 07/23/19 11:11 PT/INR, D-dimer PT 15.3 Sec. (12.2-14.9) H 07/23/19 02:53 INR 1.22 (0.87-1.13) H 07/23/19 02:53 Abnormal lab findings: Abnormal Labs 07/23/19 07/23/19 07/23/19 02:53 02:53 02:53 WBC RBC 3.53 L Hgb 10.3 L Hct 31.9 L Lymph % (Auto) 12.0 L Lymph # 0.8 L Seg Neutrophils % 87.1 H Seg Neuts % (Manual) Lymphocytes % (Manual) Nucleated RBC % Seg Neutrophils # Man Lymphocytes # (Manual) PT 15.3 H INR 1.22 H POC ABG pH POC ABG pO2 Potassium 3.4 L Carbon Dioxide 20 L BUN 62 H Creatinine 9.8 H Glucose 117 H POC Glucose Lactic Acid Troponin T 0.068 H Triglycerides 213 H HDL Cholesterol 32 L Urine WBC (Auto) 07/23/19 07/23/19 07/23/19 02:53 03:30 03:57 WBC RBC Hgb Hct Lymph % (Auto) Lymph # Seg Neutrophils % Seg Neuts % (Manual) Lymphocytes % (Manual) Nucleated RBC % Seg Neutrophils # Man Lymphocytes # (Manual) PT INR POC ABG pH 7.305 L POC ABG pO2 64 L Potassium Carbon Dioxide BUN Creatinine Glucose POC Glucose Lactic Acid 4.70 H* Troponin T Triglycerides HDL Cholesterol Urine WBC (Auto) 11.0 H 07/23/19 07/23/19 07/23/19 04:03 04:52 05:08 WBC RBC Hgb Hct Lymph % (Auto) Lymph # Seg Neutrophils % Seg Neuts % (Manual) Lymphocytes % (Manual) Nucleated RBC % Seg Neutrophils # Man Lymphocytes # (Manual) PT INR POC ABG pH POC ABG pO2 Potassium Carbon Dioxide BUN Creatinine Glucose POC Glucose 131 H Lactic Acid 4.30 H* 4.30 H* Troponin T Triglycerides HDL Cholesterol Urine WBC (Auto) 07/23/19 07/23/19 07/23/19 09:25 09:25 10:33 WBC 15.8 H RBC 3.06 L Hgb 8.9 L Hct 27.4 L Lymph % (Auto) Lymph # Seg Neutrophils % Seg Neuts % (Manual) 83.0 H Lymphocytes % (Manual) 1.0 L Nucleated RBC % 1.0 H Seg Neutrophils # Man 13.1 H Lymphocytes # (Manual) 0.2 L PT INR POC ABG pH POC ABG pO2 Potassium Carbon Dioxide BUN Creatinine Glucose POC Glucose Lactic Acid 3.70 H* 5.20 H* Troponin T Triglycerides HDL Cholesterol Urine WBC (Auto) 07/23/19 11:11 WBC RBC Hgb Hct Lymph % (Auto) Lymph # Seg Neutrophils % Seg Neuts % (Manual) Lymphocytes % (Manual) Nucleated RBC % Seg Neutrophils # Man Lymphocytes # (Manual) PT INR POC ABG pH 7.295 L POC ABG pO2 55 L Potassium Carbon Dioxide BUN Creatinine Glucose POC Glucose Lactic Acid Troponin T Triglycerides HDL Cholesterol Urine WBC (Auto) Assessment and Plan 54 y/o male with acute respiratory failure, most likely secondary to large air embolism. I have called as well as the ED physician who was on overnight at my r ecommendation to look for transfer to an instititution in which inpatient hyperbaric therapy can be given, especially to a vented patient. IN the [facility] area, no one is capable of this, not even at tertiary care institutions. I have also called [facility] as well. I spoke with [facility] who states that [facility] in [place] would except patient however I am not sure how stable he would be for such long travel. In the mean time, we will do the following. Continue vent support. Attempt to place patient in left lateral decub position Will also use some trendelenberg for help with BP and air positioning Vasopressor support, will add vaso if needed May need to consider BiVent therapy to help with oxygenation Overall prognosis is extremely guarded to poor. Per chart this has been d iscussed with family, I have not met them yet.
--- NOTE | 2019-07-23 11:36 | XRay Report ---
ABDOMEN 1 VIEW(S) at 1103 hours INDICATION / CLINICAL INFORMATION: OGT placement. COMPARISON: 07/23/2019 at 1044 hours FINDINGS: TUBES / LINES: The nasogastric tube has been repositioned and terminates in the mid stomach. BOWEL GAS PATTERN: No significant abnormality. FREE AIR / EXTRALUMINAL GAS: None seen. ADDITIONAL FINDINGS: Cardiomegaly and pulmonary venous congestion are stable. IMPRESSION: No significant abnormality. The nasogastric tube terminates in the stomach. Signer Name: Arturo Ferrari Jr, MD Signed: 07/23/2019 11:32 AM Workstation Name: [id number]
--- NOTE | 2019-07-23 11:37 | XRay Report ---
ABDOMEN 1 VIEW(S) 1042 hours INDICATION / CLINICAL INFORMATION: NGT placement/confirmation. COMPARISON: None available. FINDINGS: TUBES / LINES: The nasogastric tube is coiled in the esophagus. Replacement is recommended. BOWEL GAS PATTERN: No significant abnormality. FREE AIR / EXTRALUMINAL GAS: None seen. ADDITIONAL FINDINGS: Cardiomegaly and pulmonary venous congestion is suspected. IMPRESSION: The nasogastric tube is coiled in the esophagus. Signer Name: Arturo Ferrari Jr, MD Signed: 07/23/2019 11:33 AM Workstation Name: [id number]
[2019-07-23] MEDS ORDERED: FAMOTIDINE 20 MG/2 ML INJ IV SCH (14:00)
[2019-07-23] MEDS ORDERED: PIPERACIL-TAZO 2.25 GM/50 ML 2.25 GM/50 ML BAG IV SCH (14:00)
[2019-07-23] MEDS ORDERED: OSELTAMIVIR PHOSPHATE 30 MG/5 ML ORALSYR PO SCH (14:00)
[2019-07-23] MEDS ORDERED: VASOPRESSIN 20 UNIT in SODIUM CHLORIDE 0.9% 100 ML IV SCH (14:00)
[2019-07-23] MEDS: DEXTROSE 50% IN WATER (25GM) 50 ML SYRINGE IV PRN ×2 (14:39→15:13)
[2019-07-23] MEDS ORDERED: SODIUM BICARB 8.4% 50 MEQ/50 ML SYRINGE IV ONE (15:00)
[2019-07-23] MEDS ORDERED: DEXTROSE 5% IN WATER 1,000 ML with SODIUM BICARBONATE 150 MEQ IV SCH (15:00)
[2019-07-23] MEDS ORDERED: PHENYLEPHRINE 100 MG in SODIUM CHLORIDE 0.9% 90 ML IV SCH (15:00)
[2019-07-23] MEDS ORDERED: SODIUM BICARB 8.4% 50 MEQ/50 ML SYRINGE IV STA (15:13)
[2019-07-23] MEDS ORDERED: SODIUM CHLORIDE 0.9% 1000 ML 2,000 ML ONE (15:15)
[2019-07-23] MEDS ORDERED: SODIUM BICARB 8.4% 50 MEQ/50 ML SYRINGE IV PRN (15:42)
--- NOTE | 2019-07-23 16:00 | Consultation ---
Past History Past Medical History: diabetes, ESRD (on home HD (x1 year)) Past Surgical History: Other (JODY AV fistula) Social history: lives with family ( niece who is also caregiver) Family history: no significant family history Medications and Allergies Allergies Allergy/AdvReac Type Severity Reaction Status Date / Time No Known Allergies Allergy Unverified 07/23/19 01:49 Active Meds: Active Medications Acetaminophen (Tylenol) 650 mg AK Q4H PRN PRN Reason: Pain MILD(1-3)/Fever >100.5/HAYES Last Admin: 07/23/19 10:03 Dose: 650 mg Documented by: Dextrose (D50w (25gm) Syringe) 50 ml IV Q30MIN PRN PRN Reason: HYPOGLYCEMIA Last Admin: 07/23/19 15:13 Dose: 10 ml Documented by: Enoxaparin Sodium (Enoxaparin) 30 mg SUB-Q QDAY JOSEFINA Last Admin: 07/23/19 10:00 Dose: Not Given Documented by: Famotidine (Pepcid) 20 mg IV DAILY JOSEFINA Last Admin: 07/23/19 13:42 Dose: 20 mg Documented by: Fentanyl (Sublimaze) 50 mcg IV Q10MIN PRN PRN Reason: ANALGESIA Last Admin: 07/23/19 08:35 Dose: 50 mcg Documented by: Midazolam HCl 100 mg/ Sodium (Chloride) 100 mls @ 2 mls/hr IV TITR JOSEFINA; Protocol Last Titration: 07/23/19 14:48 Dose: 5 mg/hr, 5 mls/hr Documented by: Norepinephrine (Levophed Drip 4 Mg/Ns 250 Ml) 4 mg in 250 mls @ 7.5 mls/hr IV TITR JOSEFINA; Protocol Last Admin: 07/23/19 13:34 Dose: 28 mcg/min, 105 mls/hr Documented by: Piperacillin Sod/Tazobactam Sod (Zosyn/Ns 2.25 Gm/50ml) 2.25 gm in 50 mls @ 100 mls/hr IV Q8HR JOSEFINA; Protocol Last Admin: 07/23/19 12:59 Dose: 100 mls/hr Documented by: Fentanyl Citrate (Fentanyl Drip Premix) 2,000 mcg in 100 mls @ 6.527 mls/hr IV TITR JOSEFINA; Protocol Last Admin: 07/23/19 13:51 Dose: 2 mcg/kg/hr, 13.054 mls/hr Documented by: Vasopressin 20 unit/ Sodium (Chloride) 101 mls @ 9.09 mls/hr IV DIRECT JOSEFINA Last Admin: 07/23/19 14:20 Dose: 0.03 units/min, 9.09 mls/hr Documented by: Sodium Bicarbonate 150 meq/ (Dextrose) 1,150 mls @ 200 mls/hr IV DIRECT JOSEFINA Last Admin: 07/23/19 15:07 Dose: 150 mls/hr Documented by: Phenylephrine HCl 100 mg/ (Sodium Chloride) 100 mls @ 3 mls/hr IV TITR JOSEFINA; Protocol Last Titration: 07/23/19 15:57 Dose: 150 mcg/min, 9 mls/hr Documented by: Sodium Chloride (Nacl 0.9% 1000 Ml) 1,000 mls @ 999 mls/hr IV BOLUS ONE Stop: 07/23/19 16:15 Last Admin: 07/23/19 15:24 Dose: 999 mls/hr Documented by: Sodium Chloride (Nacl 0.9% 1000 Ml) 1,000 mls @ 999 mls/hr IV BOLUS ONE Stop: 07/23/19 16:18 Last Admin: 07/23/19 15:55 Dose: 999 mls/hr Documented by: Ondansetron HCl (Zofran) 4 mg IV Q8H PRN PRN Reason: Nausea And Vomiting Oseltamivir Phosphate (Tamiflu) 30 mg PO DAILY [facility] Stop: 07/27/19 10:01 Last Admin: 07/23/19 14:20 Dose: 30 mg Documented by: Sodium Bicarbonate (Sodium Bicarbonate 50meq Syringe) 50 meq IV ONCE PRN PRN Reason: Blood Pressure Sodium Chloride (Sodium Chloride Flush Syringe 10 Ml) 10 ml IV BID [facility] Last Admin: 07/23/19 10:00 Dose: 10 ml Documented by: Sodium Chloride (Sodium Chloride Flush Syringe 10 Ml) 10 ml IV PRN PRN PRN Reason: LINE FLUSH Exam - Vital Signs Vital signs: Vital Signs Pulse Resp BP Pulse Ox 143 H 40 H 105/50 100 07/23/19 01:30 07/23/19 01:30 07/23/19 01:30 07/23/19 01:30 Results - Lab Results 07/23/19 09:25 07/23/19 02:53 Most recent lab results Calcium 8.7 mg/dL (8.4-10.2) 07/23/19 02:53
--- NOTE | 2019-07-23 16:02 | Consultation ---
History of Present Illness - Reason for Consult Consult date: 07/23/19 - History of Present Illness 54 yo M PMhx ESRD on HD presented to the hospital complaining of SOB and R chest pain. patient is intubated and heavily sedated, as such the history is taken from the chart. The patient's niece was assisting with his dialysis, and noticed air bubbles in the line. Following this the patient's complaints began. He was brought in by ambulance and was noticed to be hypotensive en route. He was h ypoxic on admission and was then intubated and sedated. He was seen by pulmonary who suspect an air embolism and recommended transfer to a facility with hyperbaric oxygen. Febrile to 101.3 with an increasing white count which is now 16. He is currently receiving vancomycin and pip-tazo, as well as oseltamivir. Blood cultures and sputum cultures are negative Imaging personally reviewed: CT chest: bilateral consolidations Past History Past Medical History: diabetes, ESRD (on home HD (x1 year)) Past Surgical History: Other (JODY AV fistula) Social history: lives with family ( niece who is also caregiver) Family history: no significant family history Medications and Allergies Allergies Allergy/AdvReac Type Severity Reaction Status Date / Time No Known Allergies Allergy Unverified 07/23/19 01:49 Home Medications Medication Instructions Recorded Confirmed Last Taken Type Dextrose 50% in Water [D50W (25GM) 50 ml IV Q30MIN PRN syringe 07/23/19 Unkno wn Rx Syringe] Enoxaparin 30 mg SUB-Q QDAY syringe 07/23/19 Unknown Rx Midazolam 100 mg IV TITR vial 07/23/19 Unknown Rx Oseltamivir Phosphate [Tamiflu] 30 mg PO DAILY [facility] 07/23/19 Unknown Rx Phenylephrine 100 mg IV TITR vial 07/23/19 Unknown Rx Sodium Bicarbonate 150 meq IV DIRECT vial 07/23/19 Unknown Rx Sodium Bicarbonate [SODIUM 50 meq IV ONCE PRN syringe 07/23/19 Unknown Rx BICARBONATE 50mEq Syringe] Sodium Chloride 0.9% Int [Sodium 10 ml IV BID syringe 07/23/19 Unknown Rx Chloride Flush Syringe 10 ml] Sodium Chloride 0.9% [NaCl 0.9% 100 ml IV TITR bag 07/23/19 Unknown Rx 100 ML] Vasopressin [Vasostrict] 20 unit IV DIRECT vial 07/23/19 Unknown Rx Active Meds: Active Medications Acetaminophen (Tylenol) 650 mg DC Q4H PRN PRN Reason: Pain MILD(1-3)/Fever >100.5/HAYES Last Admin: 07/23/19 10:03 Dose: 650 mg Documented by: Dextrose (D50w (25gm) Syringe) 50 ml IV Q30MIN PRN PRN Reason: HYPOGLYCEMIA Last Admin: 07/23/19 15:13 Dose: 10 ml Documented by: Enoxaparin Sodium (Enoxaparin) 30 mg SUB-Q QDAY JOSEFINA Last Admin: 07/23/19 10:00 Dose: Not Given Documented by: Famotidine (Pepcid) 20 mg IV DAILY JOSEFINA Last Admin: 07/23/19 13:42 Dose: 20 mg Documented by: Fentanyl (Sublimaze) 50 mcg IV Q10MIN PRN PRN Reason: ANALGESIA Last Admin: 07/23/19 08:35 Dose: 50 mcg Documented by: Midazolam HCl 100 mg/ Sodium (Chloride) 100 mls @ 2 mls/hr IV TITR JOSEFINA; Protocol Last Titration: 07/23/19 14:48 Dose: 5 mg/hr, 5 mls/hr Documented by: Norepinephrine (Levophed Drip 4 Mg/Ns 250 Ml) 4 mg in 250 mls @ 7.5 mls/hr IV TITR JOSEFINA; Protocol Last Admin: 07/23/19 13:34 Dose: 28 mcg/min, 105 mls/hr Documented by: Piperacillin Sod/Tazobactam Sod (Zosyn/Ns 2.25 Gm/50ml) 2.25 gm in 50 mls @ 100 mls/hr IV Q8HR JOSEFINA; Protocol Last Admin: 07/23/19 12:59 Dose: 100 mls/hr Documented by: Fentanyl Citrate (Fentanyl Drip Premix) 2,000 mcg in 100 mls @ 6.527 mls/hr IV TITR JOSEFINA; Protocol Last Admin: 07/23/19 13:51 Dose: 2 mcg/kg/hr, 13.054 mls/hr Documented by: Vasopressin 20 unit/ Sodium (Chloride) 101 mls @ 9.09 mls/hr IV DIRECT JOSEFINA Last Admin: 07/23/19 14:20 Dose: 0.03 units/min, 9.09 mls/hr Documented by: Sodium Bicarbonate 150 meq/ (Dextrose) 1,150 mls @ 200 mls/hr IV DIRECT JOSEFINA Last Admin: 07/23/19 15:07 Dose: 150 mls/hr Documented by: Phenylephrine HCl 100 mg/ (Sodium Chloride) 100 mls @ 3 mls/hr IV TITR JOSEFINA; Protocol Last Titration: 07/23/19 15:57 Dose: 150 mcg/min, 9 mls/hr Documented by: Sodium Chloride (Nacl 0.9% 1000 Ml) 1,000 mls @ 999 mls/hr IV BOLUS ONE Stop: 07/23/19 16:15 Last Admin: 07/23/19 15:24 Dose: 999 mls/hr Documented by: Sodium Chloride (Nacl 0.9% 1000 Ml) 1,000 mls @ 999 mls/hr IV BOLUS ONE Stop: 07/23/19 16:18 Last Admin: 07/23/19 15:55 Dose: 999 mls/hr Documented by: Ondansetron HCl (Zofran) 4 mg IV Q8H PRN PRN Reason: Nausea And Vomiting Oseltamivir Phosphate (Tamiflu) 30 mg PO DAILY JOSEFINA Stop: 07/27/19 10:01 Last Admin: 07/23/19 14:20 Dose: 30 mg Documented by: Sodium Bicarbonate (Sodium Bicarbonate 50meq Syringe) 50 meq IV ONCE PRN PRN Reason: Blood Pressure Sodium Chloride (Sodium Chloride Flush Syringe 10 Ml) 10 ml IV BID [facility] Last Admin: 07/23/19 10:00 Dose: 10 ml Documented by: Sodium Chloride (Sodium Chloride Flush Syringe 10 Ml) 10 ml IV PRN PRN PRN Reason: LINE FLUSH Physical Examination - Physical Exam Narrative exam: Constitutional: intubated, sedated Head, Ears, Nose: Normocephalic, atraumatic. External ears, nose normal Eyes: Conjunctivae/corneas clear. No icterus. No ptosis. Neck: Supple, no meningeal signs Oral: dentition fair, no thrush Cardiovascular: S1, S2 normal. Respiratory: Good air entry, clear to auscultation bilaterally GI: Soft, non-tender; bowel sounds normal. No peritoneal signs. Musculoskeletal: No pedal edema, no cyanosis. Skin: No rash or abscess Hem/Lymphatic: No palpable cervical or supraclavicular nodes. No lymphangitis Psych: Sedated Neurological: Sedated - Constitutional Vitals: Vital Signs Temp Pulse Resp BP Pulse Ox 101.3 F H 96 H 23 73/29 91 07/23/19 12:00 07/23/19 14:21 07/23/19 14:21 07/23/19 14:21 07/23/19 14:21 Temperature -Last 24 Hours Temperature 101.3 F Temperature 101.3 F Temperature 101.7 F Temperature 99.9 F Temperature 101.5 F Results - Labs CBC & Chem 7: 07/23/19 09:25 07/23/19 02:53 Labs: Abnormal lab results 07/23/19 07/23/19 07/23/19 Range/Units 02:53 02:53 02:53 WBC (4.5-11.0) K/mm3 RBC 3.53 L (3.65-5.03) M/mm3 Hgb 10.3 L (11.8-15.2) gm/dl Hct 31.9 L (35.5-45.6) % Lymph % (Auto) 12.0 L (13.4-35.0) % Lymph # 0.8 L (1.2-5.4) K/mm3 Seg Neutrophils % 87.1 H (40.0-70.0) % Seg Neuts % (Manual) (40.0-70.0) % Lymphocytes % (Manual) (13.4-35.0) % Nucleated RBC % (0.0-0.9) % Seg Neutrophils # Man (1.8-7.7) K/mm3 Lymphocytes # (Manual) (1.2-5.4) K/mm3 PT 15.3 H (12.2-14.9) Sec. INR 1.22 H (0.87-1.13) POC ABG pH (7.35-7.45) POC ABG pO2 (80-105) Potassium 3.4 L (3.6-5.0) mmol/L Carbon Dioxide 20 L (22-30) mmol/L BUN 62 H (9-20) mg/dL Creatinine 9.8 H (0.8-1.5) mg/dL Glucose 117 H (75-100) mg/dL POC Glucose (70-105) Lactic Acid (0.7-2.0) mmol/L Troponin T 0.068 H (0.00-0.029) ng/mL Triglycerides 213 H (2-149) mg/dL HDL Cholesterol 32 L (40-59) mg/dL Urine WBC (Auto) (0.0-6.0) /HPF 07/23/19 07/23/19 07/23/19 Range/Units 02:53 03:30 03:57 WBC (4.5-11.0) K/mm3 RBC (3.65-5.03) M/mm3 Hgb (11.8-15.2) gm/dl Hct (35.5-45.6) % Lymph % (Auto) (13.4-35.0) % Lymph # (1.2-5.4) K/mm3 Seg Neutrophils % (40.0-70.0) % Seg Neuts % (Manual) (40.0-70.0) % Lymphocytes % (Manual) (13.4-35.0) % Nucleated RBC % (0.0-0.9) % Seg Neutrophils # Man (1.8-7.7) K/mm3 Lymphocytes # (Manual) (1.2-5.4) K/mm3 PT (12.2-14.9) Sec. INR (0.87-1.13) POC ABG pH 7.305 L (7.35-7.45) POC ABG pO2 64 L (80-105) Potassium (3.6-5.0) mmol/L Carbon Dioxide (22-30) mmol/L BUN (9-20) mg/dL Creatinine (0.8-1.5) mg/dL Glucose (75-100) mg/dL POC Glucose (70-105) Lactic Acid 4.70 H* (0.7-2.0) mmol/L Troponin T (0.00-0.029) ng/mL Triglycerides (2-149) mg/dL HDL Cholesterol (40-59) mg/dL Urine WBC (Auto) 11.0 H (0.0-6.0) /HPF 07/23/19 07/23/19 07/23/19 Range/Units 04:03 04:52 05:08 WBC (4.5-11.0) K/mm3 RBC (3.65-5.03) M/mm3 Hgb (11.8-15.2) gm/dl Hct (35.5-45.6) % Lymph % (Auto) (13.4-35.0) % Lymph # (1.2-5.4) K/mm3 Seg Neutrophils % (40.0-70.0) % Seg Neuts % (Manual) (40.0-70.0) % Lymphocytes % (Manual) (13.4-35.0) % Nucleated RBC % (0.0-0.9) % Seg Neutrophils # Man (1.8-7.7) K/mm3 Lymphocytes # (Manual) (1.2-5.4) K/mm3 PT (12.2-14.9) Sec. INR (0.87-1.13) POC ABG pH (7.35-7.45) POC ABG pO2 (80-105) Potassium (3.6-5.0) mmol/L Carbon Dioxide (22-30) mmol/L BUN (9-20) mg/dL Creatinine (0.8-1.5) mg/dL Glucose (75-100) mg/dL POC Glucose 131 H (70-105) Lactic Acid 4.30 H* 4.30 H* (0.7-2.0) mmol/L Troponin T (0.00-0.029) ng/mL Triglycerides (2-149) mg/dL HDL Cholesterol (40-59) mg/dL Urine WBC (Auto) (0.0-6.0) /HPF 07/23/19 07/23/19 07/23/19 Range/Units 09:25 09:25 10:33 WBC 15.8 H (4.5-11.0) K/mm3 RBC 3.06 L (3.65-5.03) M/mm3 Hgb 8.9 L (11.8-15.2) gm/dl Hct 27.4 L (35.5-45.6) % Lymph % (Auto) (13.4-35.0) % Lymph # (1.2-5.4) K/mm3 Seg Neutrophils % (40.0-70.0) % Seg Neuts % (Manual) 83.0 H (40.0-70.0) % Lymphocytes % (Manual) 1.0 L (13.4-35.0) % Nucleated RBC % 1.0 H (0.0-0.9) % Seg Neutrophils # Man 13.1 H (1.8-7.7) K/mm3 Lymphocytes # (Manual) 0.2 L (1.2-5.4) K/mm3 PT (12.2-14.9) Sec. INR (0.87-1.13) POC ABG pH (7.35-7.45) POC ABG pO2 (80-105) Potassium (3.6-5.0) mmol/L Carbon Dioxide (22-30) mmol/L BUN (9-20) mg/dL Creatinine (0.8-1.5) mg/dL Glucose (75-100) mg/dL POC Glucose (70-105) Lactic Acid 3.70 H* 5.20 H* (0.7-2.0) mmol/L Troponin T (0.00-0.029) ng/mL Triglycerides (2-149) mg/dL HDL Cholesterol (40-59) mg/dL Urine WBC (Auto) (0.0-6.0) /HPF 07/23/19 Range/Units 11:11 WBC (4.5-11.0) K/mm3 RBC (3.65-5.03) M/mm3 Hgb (11.8-15.2) gm/dl Hct (35.5-45.6) % Lymph % (Auto) (13.4-35.0) % Lymph # (1.2-5.4) K/mm3 Seg Neutrophils % (40.0-70.0) % Seg Neuts % (Manual) (40.0-70.0) % Lymphocytes % (Manual) (13.4-35.0) % Nucleated RBC % (0.0-0.9) % Seg Neutrophils # Man (1.8-7.7) K/mm3 Lymphocytes # (Manual) (1.2-5.4) K/mm3 PT (12.2-14.9) Sec. INR (0.87-1.13) POC ABG pH 7.295 L (7.35-7.45) POC ABG pO2 55 L (80-105) Potassium (3.6-5.0) mmol/L Carbon Dioxide (22-30) mmol/L BUN (9-20) mg/dL Creatinine (0.8-1.5) mg/dL Glucose (75-100) mg/dL POC Glucose (70-105) Lactic Acid (0.7-2.0) mmol/L Troponin T (0.00-0.029) ng/mL Triglycerides (2-149) mg/dL HDL Cholesterol (40-59) mg/dL Urine WBC (Auto) (0.0-6.0) /HPF Assessment and Plan Cultures: 07/23/19 blood cultures - NGTD 07/23/19 sputum culture - NGTD A/P: 54 yo M PMHx ESRD on HD admitted with acute hypoxemic respiratory failure, thought to be secondary to air embolism. 1. Acute sepsis - present with fevers and leukocytosis, possibly secondary to bilateral pneumonia 2. Bilateral pneumonia - can continue vancomycin and pip-junior in the meantime. Would obtain MRSA swab, if negative can stop vancomcyin. No concern for increased renal toxicity in patient with ESRD. 3. Air embolism 4. ESRD on HD - renally dose antibiotics as appropriate Recs: - cotninue vancomycin dosed per pharmacy, goal trough 15-20 - continue pip-junior ESRD dosing - follow up blood and sputum cultures Thank you for the consult, we will continue to follow. MD Mohan [facility] ([facility] M: [phone] O: [phone] F: [phone]
--- NOTE | 2019-07-23 16:31 | Discharge Summary ---
Providers - Providers Date of Admission: 07/23/19 06:55 Date of discharge: 07/23/19 Attending physician: SAMEERA ALVAREZ MD 07/23/19 05:40 Consult to Physician [CONS] Stat Comment: Dr. Rod spoke with Dr. Blair @ 0458 Consulting Provider: LELAND BLAIR Physician Instructions: Reason For Exam: air embolism 07/23/19 06:02 Consult to Physician [CONS] Stat Comment: Dr. Rod spoke with Dr. Cox @ 0555 Consulting Provider: MARCUS COX Physician Instructions: Reason For Exam: esrd 07/23/19 06:55 Consult to Physician [CONS] Routine Comment: Consulting Provider: MANUEL READ Physician Instructions: Reason For Exam: sirs Primary care physician: CORE FINISHER Hospitalization Reason for admission: Air-embolism, Shock, SIRS, ESRD on HD Condition: Critical Pertinent studies: Chest x-ray; pulmonary congestion CTA; showed pulmonary venous congestion, no air identified CT head; no acute intracranial findings Hospital course: 54-year-old -Congolese male with past medical history significant for end- stage renal disease on hemodialysis, hypertension presented to the emergency department for the complaints of chest pain that started earlier this morning around 12 AM. 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 Patient started to have chest pain and she brought him in the emergency department around 1:30. Patient was also started to have shortness of breath which was started with BiPAP and non rebreather mask which didn't respond to it and patient was intubated and placed on mechanical ventilation. Patient was put on propofol and his blood pressure was dropped down, propofol stopped and patient started with versed and fentanyl drip, patient was placed on Levophed maxed out, and started on vasopressin will increase vasopressin and if he doesn't respond will Luke-Synephrine. Patient had a fever after he presented to the emergency department and started on vancomycin and Zosyn, ID consult appreciated. CTA and chest x-ray significant for pulmonary edema. Suspicion was air embolism and we called all the hospitals in the vicinity and none of them has a capacity to treat a patient on a vent and pressers with hyperbaric oxygen treatment. [facility] in [facility] was called and they said will accept the patient and didn't get back to me on time> I called [facility] and discussed with the solution lead Dr Oconnell and he accepted the patient. Discussed with block and case maker Cyndi and ICU charge nurse for airlift and they are working on it. Live Source Operator Dr Johnnie brown appreciated. patient's severity of condition and the risk of deterioration while in the ICU and during air lift, they understood and wants with the management plan. Family asked to call his checkout operator Dr Calderon and updated the plan of care. Patient is critically sick. Prognosis is very poor. Disposition: [id number]-TRM GEN HOSP IP Time spent for discharge: 45 minutes - Discharge Diagnoses (1) Acute respiratory failure with hypoxia Status: Acute (2) Air embolism Status: Acute (3) ESRD (end stage renal disease) Status: Acute (4) Lactic acidosis Status: Acute (5) Pulmonary edema Status: Acute (6) SIRS (systemic inflammatory response syndrome) Status: Acute Core Measure Documentation - Palliative Care Palliative Care/ Comfort Measures: Not Applicable - Core Measures Any of the following diagnoses?: none Exam - Physical Exam Narrative exam: Patient is intubated and mechanical ventilation. The patient appeared well nourished and normally developed. Vital signs as documented. Head exam is unremarkable. No scleral icterus . Neck is without jugular venous distension, thyromegaly, or carotid bruits. Lungs are clear to auscultation. Cardiac exam reveals regular rate and Rhythm. Abdominal exam reveals normal bowel sounds, no masses, no organomegaly and no aortic enlargement. Extremities are nonedematous and both femoral and pedal pulses are normal. 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 - Constitutional Vitals: Temp Pulse Resp BP Pulse Ox 101.3 F H 100 H 23 114/66 84 07/23/19 12:00 07/23/19 16:00 07/23/19 14:21 07/23/19 16:00 07/23/19 16:00 Plan Activity: other (Patient is sedated) Diet: other (tube feeding) Follow up with: PRIMARY CARE, [Primary Care Provider] - 3-5 Days
[2019-07-23 16:52] VITALS: BP 150/130
[2019-07-23] MEDS ORDERED: VANCOMYCIN PHARMACY TO DOSE IV SCH (17:00)
== END 2019-07-23 17:00 | disposition short-term general hospital (02) | DRG 871 ==
LOC: ED 01:18 → SUATTDRO 01:18 → CC1 06:55
PROVIDERS: ADMIT Internal Medicine; ATTEND Internal Medicine
PROC: 4A033R1 Measurement of Arterial Saturation, Peripheral, Percutaneous Approach (ICD-10-PCS; principal; 2019-07-23)
PROC: 5A1935Z Respiratory Ventilation, Less than 24 Consecutive Hours (ICD-10-PCS; 2019-07-23)
PROC: 0BH17EZ Insertion of Endotracheal Airway into Trachea, Via Natural or Artificial Opening (ICD-10-PCS; 2019-07-23)
PROC: 5A09357 Assistance with Respiratory Ventilation, Less than 24 Consecutive Hours, Continuous Positive Airway Pressure (ICD-10-PCS; 2019-07-23)
PROC: 06HY33Z Insertion of Infusion Device into Lower Vein, Percutaneous Approach (ICD-10-PCS; 2019-07-23)
DX: A41.9 Sepsis, unspecified organism (principal); J96.01 Acute respiratory failure with hypoxia; T79.0XXA Air embolism (traumatic), initial encounter; N18.6 End stage renal disease; J18.9 Pneumonia, unspecified organism; I12.0 Hypertensive chronic kidney disease with stage 5 chronic kidney disease or end stage renal disease; E87.2 Acidosis; N39.0 Urinary tract infection, site not specified; X58.XXXA Exposure to other specified factors, initial encounter; E11.22 Type 2 diabetes mellitus with diabetic chronic kidney disease; Z99.2 Dependence on renal dialysis; Z79.4 Long term (current) use of insulin; Z79.899 Other long term (current) drug therapy
CPT/HCPCS: 36415; 36600; 70450; 71045; 71275; 74018; 80048; 80061; 81001; 82140; 82803; 82962; 83880; 84484; 85007; 85025; 85610; 85730; 87040; 87070; 87086; 87205; 93005; 93010; 94002; G0378; J0330; J0692; J2250; J2370; J2543; J2704; J3010; J3370; J3480; J7030; J7040; J7070; Q9967

== ENCOUNTER 2019-07-31 14:09 | Inpatient (IN) | payer MEDICARE, OTHER ==
--- NOTE | 2019-07-31 17:09 | History and Physical Report ---
History of Present Illness Chief complaint: I feel a little better History of present illness: 54 YO Male with ESRD on HD readmitted to ICU for Acute Respiratory Failure Suspected secondary to Air Embolism. Pt discharged from ICU and transferred to [facility] in [place], [place]. Pt transferred to [facility]. Pt admitted to ICU. Pt seen and evaluated in his room upon arrival. Pt denies fever, chills, CP, Palpitations, NVD, Trauma, or recent ill contacts. Pt acknowledges painful blisters around his mouth. Nephrology consulted upon arrival. Pulmonary team consulted upon arrival. Pt admitted to ICU. Past History Past Medical History: other (seee hpi) Past Surgical History: Other (dialysis access) Social history: single, lives with family. denies: smoking, alcohol abuse, prescription drug abuse Family history: hypertension Medications and Allergies Allergies Allergy/AdvReac Type Severity Reaction Status Date / Time No Known Allergies Allergy Unverified 07/23/19 01:49 Home Medications Medication Instructions Recorded Confirmed Last Taken Type Dextrose 50% in Water [D50W (25GM) 50 ml IV Q30MIN PRN syringe 07/23/19 Unknown Rx Syringe] Enoxaparin 30 mg SUB-Q QDAY syringe 07/23/19 Unknown Rx Midazolam 100 mg IV TITR vial 07/23/19 Unknown Rx Oseltamivir Phosphate [Tamiflu] 30 mg PO DAILY oralsyr 07/23/19 Unknown Rx Phenylephrine 100 mg IV TITR vial 07/23/19 Unknown Rx Sodium Bicarbonate 150 meq IV DIRECT vial 07/23/19 Unknown Rx Sodium Bicarbonate [SODIUM 50 meq IV ONCE PRN syringe 07/23/19 Unknown Rx BICARBONATE 50mEq Syringe] Sodium Chloride 0.9% Int [Sodium 10 ml IV BID syringe 07/23/19 Unknown Rx Chloride Flush Syringe 10 ml] Sodium Chloride 0.9% [NaCl 0.9% 100 ml IV TITR bag 07/23/19 Unknown Rx 100 ML] Vasopressin [Vasostrict] 20 unit IV DIRECT vial 07/23/19 Unknown Rx Review of Systems Constitutional: weakness, no weight loss, no weight gain, no fever, no chills Ears, nose, mouth and throat: no ear pain, no ear discharge, no tinnitis, no decreased hearing, no nose pain, no nasal discharge Cardiovascular: shortness of breath, no chest pain, no orthopnea, no rapid/irregular heart beat, no edema, no syncope Respiratory: no cough, no cough with sputum, no excessive sputum, no shortness of breath Gastrointestinal: no abdominal pain, no nausea, no vomiting, no constipation, no change in bowel habits, no hematemesis Genitourinary Male: no hematuria, no flank pain, no discharge, no urinary hesitancy, no incontinence Rectal: no pain, no incontinence Musculoskeletal: no arm numbness/tingling, no low back pain, no shooting leg pain, no leg numbness/tingling Integumentary: blisters (oral blisters), no pruritis, no redness, no sores, no wounds, no boils Psychiatric: no anxiety, no memory loss, no change in sleep habits, no sleep di sturbances Endocrine: no cold intolerance, no heat intolerance, no polyphagia, no excessive thirst Hematologic/Lymphatic: no easy bruising, no easy bleeding, no lymphadenopathy, no lymphedema Allergic/Immunologic: no anaphylaxis, no angioedema Exam - Constitutional General appearance: Present: mild distress - EENT Eyes: Present: PERRL ENT: hearing intact, clear oral mucosa, other (perioral bilsters) - Neck Neck: Present: supple, normal ROM - Respiratory Respiratory effort: normal Respiratory: bilateral: CTA - Cardiovascular Heart Sounds: Present: S1 & S2. Absent: rub, click - Extremities Extremities: pulses symmetrical, No edema Peripheral Pulses: within normal limits - Abdominal General gastrointestinal: Present: soft, non-tender, non-distended, normal bowel sounds Male genitourinary: Present: normal - Integumentary Integumentary: Present: clear, warm, dry - Musculoskeletal Musculoskeletal: gait normal, strength equal bilaterally - Psychiatric Psychiatric: appropriate mood/affect, intact judgment & insight - Neurologic Neurologic: CNII-XII intact, moves all extremities Results - Labs CBC & Chem 7: 07/31/19 20:05 07/31/19 20:05 Assessment and Plan - Patient Problems (1) Acute respiratory failure with hypoxia Current Visit: No Status: Acute Plan to address problem: Supplemental oxygen, chest x ray, nebulizer therapy, pulse oximetry, pulmonary toilet, Pulmonary team consulted. The high probability of a clinically significant, sudden or life threatening deterioration of the [respiratory] system(s) required my full and direct attention, intervention and personal management. The aggregate critical care time was [65] minutes. This time is in addition to time spent performing reported procedures but includes the following: [x] Data Review and interpretation [x] Patient assessment and monitoring of vital signs [x] Documentation [x] Medication orders and management (2) Air embolism Current Visit: No Status: Acute Qualifiers: Encounter type: initial encounter Qualified Code(s): T79.0XXA - Air embolism (traumatic), initial encounter Plan to address problem: Suspected: Resolved: supplemental oxygen, pulse oximetry, supportive care, Pulmonary team consulted. (3) ESRD (end stage renal disease) Current Visit: No Status: Acute Plan to address problem: Nephrology team consulted in ED, dialysis as per renal team. (4) SIRS (systemic inflammatory response syndrome) Current Visit: No Status: Acute Plan to address problem: CBC, CMP, chest x ray, urinalysis. empiric antibiotic therapy, (5) Perioral dermatitis Current Visit: Yes Status: Acute Plan to address problem: Rapid strep screen, HSV PCR, empiric antibiotic therapy (6) DVT prophylaxis Current Visit: Yes Status: Acute Plan to address problem: SCD to BLE while in bed,
[2019-07-31] MEDS ORDERED: DEXTROSE 50% IN WATER (25GM) 50 ML SYRINGE IV PRN (17:13)
[2019-07-31 20:21] LABS: Hematocrit 27.8 % (35.5-45.6); Mean Corpuscular HGB Conc 33 % (32-34); Mean Corpuscular Volume 89 fl (84-94); Platelet Count 238 K/mm3 (140-440); Red Blood Count 3.14 M/mm3 (3.65-5.03); Red Cell Distribution Width 14.3 % (13.2-15.2)
[2019-07-31 20:36] LABS: Albumin 3.4 g/dL (3.9-5); Calcium 9.2 mg/dL (8.4-10.2)
[2019-07-31 21:15] LABS: Basophils % (Manual) 0 % (0.0-1.8); Eosinophils % (Manual) 0 % (0.0-4.3); Myelocytes # (Manual) 0.2 K/mm3; Total Cells Counted 100
[2019-07-31 21:16] LABS: Anisocytosis 1+; Large Platelets Few; Platelet Estimate Consistent w Auto
--- NOTE | 2019-07-31 21:34 | XRay Report ---
CHEST 1 VIEW INDICATION: dypsnea. COMPARISON: 07/23/2019 FINDINGS: SUPPORT DEVICES: None. HEART / MEDIASTINUM: No significant abnormality. LUNGS / PLEURA: No significant pulmonary or pleural abnormality. No pneumothorax. ADDITIONAL FINDINGS: IMPRESSION: 1. No acute findings. Marked improvement as compared to previous exam Signer Name: Ja Urrutia MD Signed: 07/31/2019 9:29 PM Workstation Name: [id number]
[2019-07-31] MEDS ORDERED: cefTRIAXone/NS 1 GM/50 ML 1 GM/50 ML BAG IV SCH (21:36)
[2019-07-31] MEDS ORDERED: MORPHINE 2 MG/1 ML INJ IV ONE (21:56)
[2019-08-01 07:30] LABS: Hematocrit 26.8 % (35.5-45.6); Hemoglobin 8.6 gm/dl (11.8-15.2); Mean Corpuscular HGB Conc 32 % (32-34); Mean Corpuscular Volume 89 fl (84-94); Platelet Count 236 K/mm3 (140-440); Red Cell Distribution Width 14.1 % (13.2-15.2)
--- NOTE | 2019-08-01 07:38 | Consultation ---
History of Present Illness Consult date: 08/01/19 Requesting physician: JOSE M FITZGERALD Reason for consult: other (Possible Air Embolism) History of present illness: 54 y/o male originally admitted to our ICU last week with acute respiratory failure and confusion and led to hypotension and 3 pressor requirement. At that time history provided suggested air embolism. Several calls were made to different facilities in [facility] for hyperbaric therapy in a critically ill patient. No facility here could oblige. Found a center in [facility] who was willing to take patient. They re-imaged and could not find an air embolism so they elected not to treat. Only treated as sepsis and were successful. Extubated and had his fistula declotted and transferred back to [facility]. Patient is awake and alert on room air. Family asleep at bedside. He is currently on airborne and contact precautions for possible shingles. Past History Past Medical History: ESRD, hypertension, other (seee hpi) Past Surgical History: Other (dialysis access) Social history: single, lives with family. denies: smoking, alcohol abuse, prescription drug abuse Family history: hypertension Medications and Allergies Allergies Allergy/AdvReac Type Severity Reaction Status Date / Time No Known Allergies Allergy Unverified 07/23/19 01:49 Home Medications Medication Instructions Recorded Confirmed Last Taken Type Dextrose 50% in Water [D50W (25GM) 50 ml IV Q30MIN PRN syringe 07/23/19 08/01/19 Unknown Rx Syringe] Enoxaparin 30 mg SUB-Q QDAY syringe 07/23/19 08/01/19 Unknown Rx Midazolam 100 mg IV TITR vial 07/23/19 08/01/19 Unknown Rx Oseltamivir Phosphate [Tamiflu] 30 mg PO DAILY oralsyr 07/23/19 08/01/19 Unknown Rx Phenylephrine 100 mg IV TITR vial 07/23/19 08/01/19 Unknown Rx Sodium Bicarbonate 150 meq IV DIRECT vial 07/23/19 08/01/19 Unknown Rx Sodium Bicarbonate [SODIUM 50 meq IV ONCE PRN syringe 07/23/19 08/01/19 Unknown Rx BICARBONATE 50mEq Syringe] Sodium Chloride 0.9% Int [Sodium 10 ml IV BID syringe 07/23/19 08/01/19 Unknown Rx Chloride Flush Syringe 10 ml] Sodium Chloride 0.9% [NaCl 0.9% 100 ml IV TITR bag 07/23/19 08/01/19 Unknown Rx 100 ML] Vasopressin [Vasostrict] 20 unit IV DIRECT vial 07/23/19 08/01/19 Unknown Rx Aspirin [Aspirin BABY CHEW TAB] 81 mg PO QDAY 08/01/19 08/01/19 Unknown History AtorvaSTATin [Lipitor] 40 mg PO QHS 08/01/19 08/01/19 Unknown History Epoetin Jose 10,000 Unit [Procrit] 10,000 unit SQ Q2W 08/01/19 08/01/19 Unknown History Hydralazine HCl 50 mg PO TID 08/01/19 08/01/19 Unknown History NIFEdipine [Nifedipine ER] 30 mg PO Q12HR 08/01/19 08/01/19 Unknown History Active Meds: Active Medications Dextrose (D50w (25gm) Syringe) 50 ml IV Q30MIN PRN; Protocol PRN Reason: HYPOGLYCEMIA Enoxaparin Sodium (Enoxaparin) 30 mg SUB-Q QDAY [facility] Ceftriaxone Sodium (Rocephin/Ns 1 Gm/50 Ml) 1 gm in 50 mls @ 100 mls/hr IV Q24HR@2200 JOSEFINA; Protocol Last Admin: 07/31/19 22:57 Dose: 100 mls/hr Documented by: Sodium Chloride (Sodium Chloride Flush Syringe 10 Ml) 10 ml IV BID [facility] Last Admin: 07/31/19 22:20 Dose: 10 ml Documented by: Sodium Chloride (Sodium Chloride Flush Syringe 10 Ml) 10 ml IV PRN PRN PRN Reason: LINE FLUSH Sodium Chloride (Sodium Chloride Flush Syringe 10 Ml) 10 ml IV BID [facility] Last Admin: 07/31/19 22:20 Dose: Not Given Documented by: Review of Systems All systems: negative Physical Examination Vital signs: Vital Signs Pulse Resp Pulse Ox 65 14 88 07/31/19 18:58 07/31/19 18:58 07/31/19 18:58 General appearance: no acute distress, alert Eyes: non-icteric ENT: other (several lesion around mouth, assuming this is the concern for herpe tic lesions) Neck: supple, other (large in circumference) Effort: normal Ascultation: Bilateral: clear Percussion: Bilateral: not dull Tactile fremitus: Bilateral: normal Cardiovascular: regular rate and rhythm Gastrointestinal: normoactive bowel sounds, soft Results - Laboratory Findings CBC and BMP: 07/31/19 20:05 07/31/19 20:05 Abnormal lab findings: Abnormal Labs 07/31/19 07/31/19 07/31/19 20:05 20:05 21:46 WBC 15.4 H RBC 3.14 L Hgb 9.0 L Hct 27.8 L Seg Neuts % (Manual) 85.0 H Lymphocytes % (Manual) 9.0 L Seg Neutrophils # Man 13.1 H Chloride 97.1 L Carbon Dioxide 20 L BUN 91 H Creatinine 8.1 H POC Glucose 196 H Albumin 3.4 L - Diagnostic Findings Chest x-ray: image reviewed (clear CXR) Assessment and Plan 54 y/o male with acute respiratory failure initially thought to be secondary to air embolism, transferred and only treated as sepsis, now readmitted for further care. 1. Great thanks to [facility] for taking patient despite not doing hyperbaric therapy. 2. Currently on room air and pulm status stable 3. Needs ID consult in regards to concern for HSV1 and shingles 4. Renal for HD 5. From a critical care standpoint, stable for transfer to floor. Only accepted back to our ICU as he was still in the unit in [facility]
[2019-08-01 08:04] LABS: Albumin 3.1 g/dL (3.9-5); Calcium 8.9 mg/dL (8.4-10.2)
[2019-08-01] MEDS: ENOXAPARIN 30 MG/0.3 ML INJ SUB-Q SCH (10:47)
[2019-08-01 10:54] LABS: Anisocytosis 1+; Band Neutrophils # (Manual) 0.3 K/mm3; Eosinophils % (Manual) 0 % (0.0-4.3); Large Platelets Few; Platelet Estimate Consistent w Auto; Total Cells Counted 100
--- NOTE | 2019-08-01 11:46 | Consultation ---
History of Present Illness - Reason for Consult Consult date: 08/01/19 end stage renal disease - History of Present Illness This is a 54 year old man who presents for air embolism; he was originally admitted to [facility] ICU last week with acute respiratory failure, confusion, hypotension with concern for air embolism. He was ultimately transferred to a facility in [facility] for hyperbaric therapy. He was not treated there for air embolism, just for sepsis. He did have his fistula declotted and CVC removed, and was transferred back to [facility] last night. This morning, patient is awake and alert on room air. He denies any acute issues, including dyspnea, edema, chest pain, nausea, vomiting. Notes that he had HD yesterday. Family at bedside. Past History Past Medical History: ESRD, hypertension, other (seee hpi) Past Surgical History: Other (dialysis access) Social history: single, lives with family. denies: smoking, alcohol abuse, prescription drug abuse Family history: hypertension Medications and Allergies Allergies Allergy/AdvReac Type Severity Reaction Status Date / Time No Known Allergies Allergy Unverified 07/23/19 01:49 Home Medications Medication Instructions Recorded Confirmed Last Taken Type Dextrose 50% in Water [D50W (25GM) 50 ml IV Q30MIN PRN syringe 07/23/19 08/01/19 Unknown Rx Syringe] Enoxaparin 30 mg SUB-Q QDAY syringe 07/23/19 08/01/19 Unknown Rx Midazolam 100 mg IV TITR vial 07/23/19 08/01/19 Unknown Rx Oseltamivir Phosphate [Tamiflu] 30 mg PO DAILY oralsyr 07/23/19 08/01/19 Unknown Rx Phenylephrine 100 mg IV TITR vial 07/23/19 08/01/19 Unknown Rx Sodium Bicarbonate 150 meq IV DIRECT vial 07/23/19 08/01/19 Unknown Rx Sodium Bicarbonate [SODIUM 50 meq IV ONCE PRN syringe 07/23/19 08/01/19 Unknown Rx BICARBONATE 50mEq Syringe] Sodium Chloride 0.9% Int [Sodium 10 ml IV BID syringe 07/23/19 08/01/19 Unknown Rx Chloride Flush Syringe 10 ml] Sodium Chloride 0.9% [NaCl 0.9% 100 ml IV TITR bag 07/23/19 08/01/19 Unknown Rx 100 ML] Vasopressin [Vasostrict] 20 unit IV DIRECT vial 07/23/19 08/01/19 Unknown Rx Aspirin [Aspirin BABY CHEW TAB] 81 mg PO QDAY 08/01/19 08/01/19 Unknown History AtorvaSTATin [Lipitor] 40 mg PO QHS 08/01/19 08/01/19 Unknown History Epoetin Jose 10,000 Unit [Procrit] 10,000 unit SQ Q2W 08/01/19 08/01/19 Unknown History Hydralazine HCl 50 mg PO TID 08/01/19 08/01/19 Unknown History NIFEdipine [Nifedipine ER] 30 mg PO Q12HR 08/01/19 08/01/19 Unknown History Active Meds: Active Medications Dextrose (D50w (25gm) Syringe) 50 ml IV Q30MIN PRN; Protocol PRN Reason: HYPOGLYCEMIA Enoxaparin Sodium (Enoxaparin) 30 mg SUB-Q QDAY [facility] Last Admin: 08/01/19 10:47 Dose: 30 mg Documented by: Ceftriaxone Sodium (Rocephin/Ns 1 Gm/50 Ml) 1 gm in 50 mls @ 100 mls/hr IV Q24HR@2200 JOSEFINA; Protocol Last Admin: 07/31/19 22:57 Dose: 100 mls/hr Documented by: Sodium Chloride (Sodium Chloride Flush Syringe 10 Ml) 10 ml IV BID [facility] Last Admin: 08/01/19 10:47 Dose: 10 ml Documented by: Sodium Chloride (Sodium Chloride Flush Syringe 10 Ml) 10 ml IV PRN PRN PRN Reason: LINE FLUSH Review of Systems All systems: negative (as per HPI) Exam - Vital Signs Vital signs: Vital Signs Pulse Resp Pulse Ox 65 14 88 07/31/19 18:58 07/31/19 18:58 07/31/19 18:58 - General Appearance General appearance: well-developed, well-nourished, appears stated age EENT: PERRL, mucous membranes moist Neck: Present: neck supple, trachea midline Respiratory: Clear to Ascultation, Normal Exam Heart: regular, S1S2, no murmurs Gastrointestinal: Present: normoactive bowel sounds. Absent: tenderness, distended Integumentary: no rash, warm and dry Neurologic: no focal deficit, no asterixis, alert and oriented x3, CN 3-12 intact Musculoskeletal: Present: other (AVF LUE). Absent: deformities, clubbing Psychiatric: mood/affect appropriate Results - Lab Results 08/01/19 06:26 08/01/19 06:26 Most recent lab results Calcium 8.9 mg/dL (8.4-10.2) 08/01/19 06:26 Assessment and Plan This is a 54 year old man with ESRD who presented initially with dyspnea, hypotension with concern for air embolism, now stable. # ESRD: - will plan for HD tomorrow per MWF schedule; no acute needs today - trial use of AVF which was declotted in [place] this week - avoid nephrotoxins - renally dose medications - if AVF does not work, will need vascular consult and potential CVC placement - daily renal labs # HTN: BP at goal off medications. UF with caution # Anemia: ELISA with HD for goal hemoglobin 10-11 # Secondary Hyperparathyroidism: Ca at goal, will follow and use vitamin D analogs prn # Concern for HSV: ID consult appreciated # Respiratory Failure: now improved. Appreciate pulmonary recommendations Thank you for this consult; we will follow for all renal related issues.
[2019-08-01] MEDS ORDERED: SODIUM CHLORIDE 0.9% 100 ML IV PRN ×2 (11:54→11:55)
[2019-08-01] MEDS ORDERED: EPOETIN ALFA 10,000 UNIT/1 ML INJ IV PRN (11:55)
--- NOTE | 2019-08-01 14:04 | Consultation ---
History of Present Illness - Reason for Consult Consult date: 08/01/19 Rule out shingles Requesting physician: LELAND ZAMORA - History of Present Illness The patient is a 54-year-old male with ESRD on hemodialysis was recently hospitalized here about 10 days ago due to acute respiratory failure, hypotension with concerns for air embolism following dialysis. He was transferred subsequently to [place] for possible hyperbaric oxygen therapy. However, he was managed conservatively with supportive care, on pressors, mechanical ventilation and ICU along with antimicrobial therapy (Cefepime + Vancomycin). Successfully weaned off the vent, pressors and trans ferred here. Prior to transfer, he had his left AVG declotted. Patient was subsequently sent back here last night and was noted to have painful hemorrhagic lesions around and involving his lips. Otherwise he has been afebrile. Denies any cough or shortness of breath. He was consulted to rule out shingles. Review of Systems: General: no fevers,chills or rigors HEENT: no new visual disturbance Respiratory: No cough, sputum, hemoptysis or shortness of breath Cardiovascular: No chest pain, syncope Gastrointestinal: No nausea, vomiting or diarrhea Genitourinary: No dysuria or hematuria Musculoskeletal: No new or worsening neck pain or back pain Neurologic: No headaches, seizures Hematologic: No easy bruising or bleeding Endocrine: No night sweats or acute weight loss Skin: negative for rash, jaundice Psychiatric: No suicidal or homicidal ideation Past History Past Medical History: ESRD, hypertension, other (seee hpi) Past Surgical History: Other (dialysis access) Social history: single, lives with family. denies: smoking, alcohol abuse, prescription drug abuse Family history: hypertension Medications and Allergies Allergies Allergy/AdvReac Type Severity Reaction Status Date / Time No Known Allergies Allergy Unverified 07/23/19 01:49 Home Medications Medication Instructions Recorded Confirmed Last Taken Type Dextrose 50% in Water [D50W (25GM) 50 ml IV Q30MIN PRN syringe 07/23/19 08/01/19 Unknown Rx Syringe] Enoxaparin 30 mg SUB-Q QDAY syringe 07/23/19 08/01/19 Unknown Rx Midazolam 100 mg IV TITR vial 07/23/19 08/01/19 Unknown Rx Oseltamivir Phosphate [Tamiflu] 30 mg PO DAILY oralsyr 07/23/19 08/01/19 Unknown Rx Phenylephrine 100 mg IV TITR vial 07/23/19 08/01/19 Unknown Rx Sodium Bicarbonate 150 meq IV DIRECT vial 07/23/19 08/01/19 Unknown Rx Sodium Bicarbonate [SODIUM 50 meq IV ONCE PRN syringe 07/23/19 08/01/19 Unknown Rx BICARBONATE 50mEq Syringe] Sodium Chloride 0.9% Int [Sodium 10 ml IV BID syringe 07/23/19 08/01/19 Unknown Rx Chloride Flush Syringe 10 ml] Sodium Chloride 0.9% [NaCl 0.9% 100 ml IV TITR bag 07/23/19 08/01/19 Unknown Rx 100 ML] Vasopressin [Vasostrict] 20 unit IV DIRECT vial 07/23/19 08/01/19 Unknown Rx Aspirin [Aspirin BABY CHEW TAB] 81 mg PO QDAY 08/01/19 08/01/19 Unknown History AtorvaSTATin [Lipitor] 40 mg PO QHS 08/01/19 08/01/19 Unknown History Epoetin Jose 10,000 Unit [Procrit] 10,000 unit SQ Q2W 08/01/19 08/01/19 Unknown History Hydralazine HCl 50 mg PO TID 08/01/19 08/01/19 Unknown History NIFEdipine [Nifedipine ER] 30 mg PO Q12HR 08/01/19 08/01/19 Unknown History Active Meds: Active Medications Dextrose (D50w (25gm) Syringe) 50 ml IV Q30MIN PRN; Protocol PRN Reason: HYPOGLYCEMIA Enoxaparin Sodium (Enoxaparin) 30 mg SUB-Q QDAY [facility] Last Admin: 08/01/19 10:47 Dose: 30 mg Documented by: Epoetin Joes (Procrit) 4,000 unit IV EDITH PRN PRN Reason: hemodialysis Ceftriaxone Sodium (Rocephin/Ns 1 Gm/50 Ml) 1 gm in 50 mls @ 100 mls/hr IV Q24HR@2200 [facility]; Protocol Last Admin: 07/31/19 22:57 Dose: 100 mls/hr Documented by: Sodium Chloride (Nacl 0.9%) 100 mls @ 999 mls/hr IV EDITH PRN PRN Reason: Hypotension Sodium Chloride (Sodium Chloride Flush Syringe 10 Ml) 10 ml IV BID [facility] Last Admin: 08/01/19 10:47 Dose: 10 ml Documented by: Sodium Chloride (Sodium Chloride Flush Syringe 10 Ml) 10 ml IV PRN PRN PRN Reason: LINE FLUSH Physical Examination - Physical Exam Narrative exam: Physical Exam: Constitutional: Alert, cooperative. No acute distress Head, Ears, Nose: Normocephalic, atraumatic. External ears, nose normal. Eyes: Conjunctivae/corneas clear. No icterus. No ptosis. Neck: Supple, no meningeal signs Oral: hemorrhagic lesions involving upper and lower lip, few papular lesions laterally on the left side, tender. No thrush, no oral mucosa involvement. Cardiovascular: S1, S2 normal. Respiratory: Good air entry, clear to auscultation bilaterally GI: Soft, non-tender; bowel sounds normal. No peritoneal signs. Musculoskeletal: No pedal edema, no cyanosis. Left AVG + Skin: No rash or abscess Hem/Lymphatic: No palpable cervical or supraclavicular nodes. No lymphangitis Psych: Mood ok. Affect normal Neurological: Awake, alert, oriented. No gross abnormality - Constitutional Vitals: Vital Signs Temp Pulse Resp BP Pulse Ox 97.4 F L 74 14 141/51 97 08/01/19 08:00 08/01/19 13:30 08/01/19 13:30 08/01/19 13:30 08/01/19 13:16 Temperature -Last 24 Hours Temperature 97.4 F Temperature 98.0 F Temperature 98.3 F Temperature 97.9 F Temperature 97.9 F Results - Labs CBC & Chem 7: 08/01/19 06:26 08/01/19 06:26 Labs: Abnormal lab results 07/31/19 07/31/19 07/31/19 Range/Units 20:05 20:05 21:46 WBC 15.4 H (4.5-11.0) K/mm3 RBC 3.14 L (3.65-5.03) M/mm3 Hgb 9.0 L (11.8-15.2) gm/dl Hct 27.8 L (35.5-45.6) % Seg Neuts % (Manual) 85.0 H (40.0-70.0) % Lymphocytes % (Manual) 9.0 L (13.4-35.0) % Seg Neutrophils # Man 13.1 H (1.8-7.7) K/mm3 Monocytes # (Manual) (0.0-0.8) K/mm3 Basophils # (Manual) (0.0-0.1) K/mm3 Chloride 97.1 L (98-107) mmol/L Carbon Dioxide 20 L (22-30) mmol/L BUN 91 H (9-20) mg/dL Creatinine 8.1 H (0.8-1.5) mg/dL POC Glucose 196 H (70-105) Albumin 3.4 L (3.9-5) g/dL 08/01/19 08/01/19 Range/Units 06:26 06:26 WBC 16.6 H (4.5-11.0) K/mm3 RBC 3.00 L (3.65-5.03) M/mm3 Hgb 8.6 L (11.8-15.2) gm/dl Hct 26.8 L (35.5-45.6) % Seg Neuts % (Manual) 82.0 H (40.0-70.0) % Lymphocytes % (Manual) 7.0 L (13.4-35.0) % Seg Neutrophils # Man 13.6 H (1.8-7.7) K/mm3 Monocytes # (Manual) 1.2 H (0.0-0.8) K/mm3 Basophils # (Manual) 0.2 H (0.0-0.1) K/mm3 Chloride (98-107) mmol/L Carbon Dioxide 14 L (22-30) mmol/L BUN 106 H (9-20) mg/dL Creatinine 9.4 H (0.8-1.5) mg/dL POC Glucose (70-105) Albumin 3.1 L (3.9-5) g/dL - Imaging and Cardiology Chest x-ray: report reviewed, image reviewed (no evidence of pneumonia) Assessment and Plan Cultures: None this admission. Previous admission cultures reviewed, negative. Outside hospital chart reviewed. A/P: 54-year-old male with ESRD on hemodialysis was recently hospitalized here about 10 days ago with acute respiratory failure initially thought to be secondary to air embolism, and now transferred back: 1) Severe lip and perioral lesions: New onset. Appear hemorrhagic and tender. 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 No oral mucosa involvement, no ocular involvement, no rash anywhere else, so SJS/TEN seems less likely. Monitor closely for any changes. 2) ESRD on HD: renally dose Valtrex. Recs: Ceftriaxone discontinued HSV PCR ordered, spoke to micro lab ([facility]), they will send viral transport swab to the ICU. Explained to [employer] about collection PO Valtrex renally adjusted ordered Monitor closely for any changes/worsening airborne isolation not needed. This is not Shingles/Herpes Zoster Saman Mcdaniel MD, FACP [facility] ([facility] C: [phone] O: [phone] F: [phone]
--- NOTE | 2019-08-01 14:32 | Progress Note ---
Assessment and Plan Assessment and plan: 54 YO Male with ESRD on HD readmitted to ICU for Acute Respiratory Failure Suspected secondary to Air Embolism. Pt discharged from ICU and transferred to [facility], in [place], [place]. Pt transferred to [facility]. Pt admitted to ICU. Pt seen and evaluated in his room upon arrival. Pt denies fever, chills, CP, Palpitations, NVD, Trauma, or recent ill contacts. Pt acknowledges painful blisters around his mouth. Nephrology consulted upon arrival. Pulmonary team consulted upon arrival. * Hyperbaric treatment was not done - Patient Problems (1) Acute respiratory failure with hypoxia Supplemental oxygen, chest x ray, nebulizer therapy, pulse oximetry, pulmonary toilet, Pulmonary team consulted. (2) Air embolism Current Visit: No Status: Acute Qualifiers: Encounter type: initial encounter Qualified Code(s): T79.0XXA - Air embolism (traumatic), initial encounter Plan to address problem: Suspected: Resolved: supplemental oxygen, pulse oximetry, supportive care, Pulmonary team consulted. (3) ESRD (end stage renal disease) Current Visit: No Status: Acute Plan to address problem: Nephrology team consulted in ED, dialysis as per renal team. (4) SIRS (systemic inflammatory response syndrome) Current Visit: No Status: Acute Plan to address problem: CBC, CMP, chest x ray, urinalysis. empiric antibiotic therapy discontinued, HSV pcr ORDERED. (5) Perioral dermatitis Current Visit: Yes Status: Acute Plan to address problem: Rapid strep screen, HSV PCR, empiric antibiotic therapy started on Valtrex treatment (6) DVT prophylaxis Current Visit: Yes Status: Acute Plan to address problem: SCD to BLE while in bed, The high probability of a clinically significant, sudden or life threatening deterioration of the [respiratory] system(s) required my full and direct attention, intervention and personal management. The aggregate critical care time was [65] minutes. This time is in addition to time spent performing reported procedures but includes the following: [x] Data Review and interpretation [x] Patient assessment and monitoring of vital signs [x] Documentation [x] Medication orders and management History Interval history: Patient seen and examined, still lethargic but no acute distress at this time, Concerned about the perioral lesion Hospitalist Physical - Physical exam Narrative exam: Constitutional: Alert, cooperative. No acute distress Head, Ears, Nose: Normocephalic, atraumatic. External ears, nose normal. Neck: Supple, no meningeal signs Oral: hemorrhagic lesions involving upper and lower lip, with no oral mucosa involvement, few papular lesions laterally on the left side, tender. No thrush, no oral mucosa involvement. Cardiovascular: S1, S2 normal. Respiratory: Good air entry, clear to auscultation bilaterally GI: Soft, non-tender; bowel sounds normal. No peritoneal signs. Musculoskeletal: No pedal edema, no cyanosis. Left AVG + Skin: No rash or abscess Hem/Lymphatic: No palpable cervical or supraclavicular nodes. No lymphangitis Neurological: Awake, alert, oriented. No gross abnormality - Constitutional Vitals: Temp Pulse Resp BP Pulse Ox 98.3 F 74 14 141/51 97 08/01/19 12:00 08/01/19 13:30 08/01/19 13:30 08/01/19 13:30 08/01/19 13:16 General appearance: Present: mild distress Results - Labs CBC & Chem 7: 08/01/19 06:26 08/01/19 06:26 Labs: Laboratory Last Values WBC 16.6 K/mm3 (4.5-11.0) H 08/01/19 06:26 RBC 3.00 M/mm3 (3.65-5.03) L 08/01/19 06:26 Hgb 8.6 gm/dl (11.8-15.2) L 08/01/19 06:26 Hct 26.8 % (35.5-45.6) L 08/01/19 06:26 MCV 89 fl (84-94) 08/01/19 06:26 MCH 29 pg (28-32) 08/01/19 06:26 MCHC 32 % (32-34) 08/01/19 06:26 RDW 14.1 % (13.2-15.2) 08/01/19 06:26 Plt Count 236 K/mm3 (140-440) 08/01/19 06:26 Add Manual Diff Complete 08/01/19 06:26 Total Counted 100 08/01/19 06:26 Seg Neuts % (Manual) 82.0 % (40.0-70.0) H 08/01/19 06:26 Band Neutrophils % 2.0 % 08/01/19 06:26 Lymphocytes % (Manual) 7.0 % (13.4-35.0) L 08/01/19 06:26 Reactive Lymphs % (Man) 0 % 08/01/19 06:26 Monocytes % (Manual) 7.0 % (0.0-7.3) 08/01/19 06:26 Eosinophils % (Manual) 0 % (0.0-4.3) 08/01/19 06:26 Basophils % (Manual) 1.0 % (0.0-1.8) 08/01/19 06:26 Metamyelocytes % 1.0 % 08/01/19 06:26 Myelocytes % 0 % 08/01/19 06:26 Promyelocytes % 0 % 08/01/19 06:26 Blast Cells % 0 % 08/01/19 06:26 Nucleated RBC % Not Reportable 08/01/19 06:26 Seg Neutrophils # Man 13.6 K/mm3 (1.8-7.7) H 08/01/19 06:26 Band Neutrophils # 0.3 K/mm3 08/01/19 06:26 Lymphocytes # (Manual) 1.2 K/mm3 (1.2-5.4) 08/01/19 06:26 Abs React Lymphs (Man) 0.0 K/mm3 08/01/19 06:26 Monocytes # (Manual) 1.2 K/mm3 (0.0-0.8) H 08/01/19 06:26 Eosinophils # (Manual) 0.0 K/mm3 (0.0-0.4) 08/01/19 06:26 Basophils # (Manual) 0.2 K/mm3 (0.0-0.1) H 08/01/19 06:26 Metamyelocytes # 0.2 K/mm3 08/01/19 06:26 Myelocytes # 0.0 K/mm3 08/01/19 06:26 Promyelocytes # 0.0 K/mm3 08/01/19 06:26 Blast Cells # 0.0 K/mm3 08/01/19 06:26 WBC Morphology Not Reportable 08/01/19 06:26 Hypersegmented Neuts Not Reportable 08/01/19 06:26 Hyposegmented Neuts Not Reportable 08/01/19 06:26 Hypogranular Neuts Not Reportable 08/01/19 06:26 Smudge Cells Not Reportable 08/01/19 06:26 Toxic Granulation Not Reportable 08/01/19 06:26 Toxic Vacuolation Not Reportable 08/01/19 06:26 Dohle Bodies Not Reportable 08/01/19 06:26 Pelger-Huet Anomaly Not Reportable 08/01/19 06:26 Mago Rods Not Reportable 08/01/19 06:26 Platelet Estimate Consistent w auto 08/01/19 06:26 Clumped Platelets Not Reportable 08/01/19 06:26 Plt Clumps, EDTA Not Reportable 08/01/19 06:26 Large Platelets Few 08/01/19 06:26 Giant Platelets Not Reportable 08/01/19 06:26 Platelet Satelliting Not Reportable 08/01/19 06:26 Plt Morphology Comment Not Reportable 08/01/19 06:26 RBC Morphology Not Reportable 08/01/19 06:26 Dimorphic RBCs Not Reportable 08/01/19 06:26 Polychromasia Not Reportable 08/01/19 06:26 Hypochromasia Not Reportable 08/01/19 06:26 Poikilocytosis Not Reportable 08/01/19 06:26 Anisocytosis 1+ 08/01/19 06:26 Microcytosis Not Reportable 08/01/19 06:26 Macrocytosis Not Reportable 08/01/19 06:26 Spherocytes Not Reportable 08/01/19 06:26 Pappenheimer Bodies Not Reportable 08/01/19 06:26 Sickle Cells Not Reportable 08/01/19 06:26 Target Cells Not Reportable 08/01/19 06:26 Tear Drop Cells Not Reportable 08/01/19 06:26 Ovalocytes Not Reportable 08/01/19 06:26 Helmet Cells Not Reportable 08/01/19 06:26 [place] Bodies Not Reportable 08/01/19 06:26 [place] Rings Not Reportable 08/01/19 06:26 Noemi Cells Not Reportable 08/01/19 06:26 Bite Cells Not Reportable 08/01/19 06:26 Crenated Cell Not Reportable 08/01/19 06:26 Elliptocytes Not Reportable 08/01/19 06:26 Acanthocytes (Spur) Not Reportable 08/01/19 06:26 Rouleaux Not Reportable 08/01/19 06:26 Hemoglobin C Crystals Not Reportable 08/01/19 06:26 Schistocytes Not Reportable 08/01/19 06:26 Malaria parasites Not Reportable 08/01/19 06:26 Shahriar Bodies Not Reportable 08/01/19 06:26 Hem Pathologist Commnt No 08/01/19 06:26 Sodium 140 mmol/L (137-145) 08/01/19 06:26 Potassium 4.5 mmol/L (3.6-5.0) 08/01/19 06:26 Chloride 98.5 mmol/L (98-107) 08/01/19 06:26 Carbon Dioxide 14 mmol/L (22-30) L 08/01/19 06:26 Anion Gap 32 mmol/L 08/01/19 06:26 BUN 106 mg/dL (9-20) H 08/01/19 06:26 Creatinine 9.4 mg/dL (0.8-1.5) H 08/01/19 06:26 Estimated GFR 7 ml/min 08/01/19 06:26 BUN/Creatinine Ratio 11 % 08/01/19 06:26 Glucose 83 mg/dL (75-100) 08/01/19 06:26 POC Glucose 98 (70-105) 08/01/19 12:56 Calcium 8.9 mg/dL (8.4-10.2) 08/01/19 06:26 Total Bilirubin 0.30 mg/dL (0.1-1.2) 08/01/19 06:26 AST 17 units/L (5-40) 08/01/19 06:26 ALT 26 units/L (7-56) 08/01/19 06:26 Alkaline Phosphatase 97 units/L (35-129) 08/01/19 06:26 Total Protein 6.9 g/dL (6.3-8.2) 08/01/19 06:26 Albumin 3.1 g/dL (3.9-5) L 08/01/19 06:26 Albumin/Globulin Ratio 0.8 % 08/01/19 06:26 Group A Strep Rapid Negative (Negative) 07/31/19 22:45 Active Medications - Current Medications Current Medications: Generic Name Dose Route Start Last Admin Trade Name Freq PRN Reason Stop Dose Admin Dextrose 50 ml 07/31/19 17:13 D50w (25gm) Syringe IV Q30MIN PRN HYPOGLYCEMIA Protocol Enoxaparin Sodium 30 mg 08/01/19 10:00 08/01/19 10:47 Enoxaparin SUB-Q 30 mg QDAY JOSEFINA Administration Epoetin Jose 4,000 unit 08/01/19 11:55 Procrit IV EDITH PRN hemodialysis Sodium Chloride 100 mls @ 999 mls/hr 08/01/19 11:54 Nacl 0.9% IV EDITH PRN Hypotension Sodium Chloride 10 ml 07/31/19 22:00 08/01/19 10:47 Sodium Chloride Flush Syringe 10 Ml IV 10 ml BID JOSEFINA Administration Sodium Chloride 10 ml 07/31/19 17:11 Sodium Chloride Flush Syringe 10 Ml IV PRN PRN LINE FLUSH Valacyclovir HCl 500 mg 08/01/19 15:00 Valtrex PO QDAY JOSEFINA Nutrition/Malnutrition Assess - Dietary Evaluation Nutrition/Malnutrition Findings: Nutrition Notes Start: 08/01/19 10:06 Freq: Status: Active Protocol: Document 08/01/19 10:06 AP (Rec: 08/01/19 10:49 AP [id number]) Co-Sign 08/01/19 10:06 LM Nutrition Notes Need for Assessment generated from: MD Order,MST Initial or Follow up Assessment Current Diagnosis CKD (stage V CKD) Other Pertinent Diagnosis ESRD on HD, ARF, SIRS, perioral dermatitis Current Diet Renal Labs/Tests BUN 106 Cr 9.4 Pertinent Medications Reviewed Height 5 ft 6 in Weight 121.4 kg [place] Body Weight (kg) 64.54 BMI 43.2 Intake Prior to Admission Fair Weight Status Morbidly Obese Subjective/Other Information Consult for MST, dietary supplements, skin risk. Johnny score 18. Spoke to pt Teri hayes. She stated her uncle was lactose free and a pescetarian. Requested pudding /fruit cup which was brought up from cafeteria. Let pt freddy know the Nepro is lactose free and would be useful for him to drink while his appetite is low. Unable to assess PO status at home, pt freddy stated pt has lost two pounds recently. Burn Absent Trauma Absent Current % PO Poor (25-49%) Minimum of two criteria No physical signs of malnutrition #1 Nutrition Diagnosis Inadequate oral intake Etiology ARF, SIRS As Evidenced by Signs and Symptoms Carlos hayes states pt has poor appetite this am Is patient on ventilator? No Is Patient Ambulatory and/or Out of Bed Yes REE-([facility]-ambulatory/OOB) [ 2595.775 NUTR.[id number]] Kcal/Kg value to use for calculation 17 Approximate Energy Requirements Using 2063 kcal/Kg Calculation Used for Recommendations [facility] Additional Notes PRO needs: >110g/day(>1.2g/kg/ AdBW 92kg) Fluid neds: 1-1.5L/day or per MD Nutrition Intervention Change Diet Order: Continue renal diet Add Supplement/Snack (indicate name/kcal Nepro once a day /protein ) Provides kCal: 425 Provides Protein (gm) 19 Goal #1 Pt meet >80% of kcal/PRO needs via PO and ONS. Goal #2 Wound healing Follow-Up By: 08/02/19 Additional Comments F/U for PO/ONS intakes.
[2019-08-01] MEDS: valACYclovir 500 MG TAB PO SCH (16:03)
[2019-08-01 16:11] LABS: Hepatitis B Surface Antigen Non-Reactive (Negative); Hepatitis C Virus Antibody Non-Reactive (NonReactive)
--- NOTE | 2019-08-02 10:35 | Progress Note ---
Assessment and Plan This is a 54 year old man with ESRD who presented initially with dyspnea, hypotension with concern for air embolism, now stable. # ESRD: - will plan for HD today per MWF schedule - trial use of AVF which was declotted in [place] this week - avoid nephrotoxins - renally dose medications - if AVF does not work, will need vascular consult and potential CVC placement - daily renal labs # HTN: BP at goal off medications. UF with caution # Anemia: start ELISA with HD for goal hemoglobin 10-11, hemoglobin down to 8.6 # Secondary Hyperparathyroidism: Ca at goal, will follow and use vitamin D analogs prn # Concern for HSV: ID consult appreciated # Respiratory Failure: now improved. Appreciate pulmonary recommendations Thank you for this consult; we will follow for all renal related issues. Subjective Date of service: 08/02/19 Principal diagnosis: shortness of breath Interval history: Patient with bleeding for perioral regions. No dyspnea, no chest pain. No swelling noted. Objective - Exam Narrative Exam: General appearance: well-developed, well-nourished, appears stated age EENT: PERRL, mucous membranes moist, dried blood on lips Neck: Present: neck supple, trachea midline Respiratory: Clear to Auscultation, Normal Exam Heart: regular, S1S2, no murmurs Gastrointestinal: Present: normoactive bowel sounds. Absent: tenderness, distended Integumentary: no rash, warm and dry Neurologic: no focal deficit, no asterixis, alert and oriented x3, CN 3-12 intact Musculoskeletal: Present: other (AVF LUE). Absent: deformities, clubbing Psychiatric: mood/affect appropriate - Vital Signs Vital signs: Vital Signs - 12hr 08/02/19 04:54 Temperature 98.0 F Pulse Rate 78 Respiratory 18 Rate Blood Pressure 121/57 O2 Sat by Pulse 90 Oximetry - Lab 08/01/19 06:26 08/01/19 06:26 Most recent lab results Calcium 8.9 mg/dL (8.4-10.2) 08/01/19 06:26 Medications & Allergies - Medications Allergies/Adverse Reactions: Allergies No Known Allergies Allergy (Unverified 07/23/19 01:49) Home Medications: Home Medications Medication Instructions Recorded Confirmed Last Taken Type Dextrose 50% in Water [D50W (25GM) 50 ml IV Q30MIN PRN syringe 07/23/19 08/01/19 Unknown Rx Syringe] Enoxaparin 30 mg SUB-Q QDAY syringe 07/23/19 08/01/19 Unknown Rx Midazolam 100 mg IV TITR vial 07/23/19 08/01/19 Unknown Rx Oseltamivir Phosphate [Tamiflu] 30 mg PO DAILY oralsyr 07/23/19 08/01/19 Unknown Rx Phenylephrine 100 mg IV TITR vial 07/23/19 08/01/19 Unknown Rx Sodium Bicarbonate 150 meq IV DIRECT vial 07/23/19 08/01/19 Unknown Rx Sodium Bicarbonate [SODIUM 50 meq IV ONCE PRN syringe 07/23/19 08/01/19 Unknown Rx BICARBONATE 50mEq Syringe] Sodium Chloride 0.9% Int [Sodium 10 ml IV BID syringe 07/23/19 08/01/19 Unknown Rx Chloride Flush Syringe 10 ml] Sodium Chloride 0.9% [NaCl 0.9% 100 ml IV TITR bag 07/23/19 08/01/19 Unknown Rx 100 ML] Vasopressin [Vasostrict] 20 unit IV DIRECT vial 07/23/19 08/01/19 Unknown Rx Aspirin [Aspirin BABY CHEW TAB] 81 mg PO QDAY 08/01/19 08/01/19 Unknown History AtorvaSTATin [Lipitor] 40 mg PO QHS 08/01/19 08/01/19 Unknown History Epoetin Jose 10,000 Unit [Procrit] 10,000 unit SQ Q2W 08/01/19 08/01/19 Unknown History Hydralazine HCl 50 mg PO TID 08/01/19 08/01/19 Unknown History NIFEdipine [Nifedipine ER] 30 mg PO Q12HR 08/01/19 08/01/19 Unknown History Active Medications: Generic Name Dose Route Start Last Admin Trade Name Freq PRN Reason Stop Dose Admin Dextrose 50 ml 07/31/19 17:13 D50w (25gm) Syringe IV Q30MIN PRN HYPOGLYCEMIA Protocol Enoxaparin Sodium 30 mg 08/01/19 10:00 08/01/19 10:47 Enoxaparin SUB-Q 30 mg QDAY JOSEFINA Administration Epoetin Jose 4,000 unit 08/01/19 11:55 Procrit IV EDITH PRN hemodialysis Sodium Chloride 100 mls @ 999 mls/hr 08/01/19 11:54 Nacl 0.9% IV EDITH PRN Hypotension Sodium Chloride 10 ml 07/31/19 22:00 08/01/19 22:31 Sodium Chloride Flush Syringe 10 Ml IV 10 ml BID JOSEFINA Administration Sodium Chloride 10 ml 07/31/19 17:11 Sodium Chloride Flush Syringe 10 Ml IV PRN PRN LINE FLUSH Valacyclovir HCl 500 mg 08/01/19 15:00 08/01/19 16:03 Valtrex PO 500 mg QDAY JOSEFINA Administration
--- NOTE | 2019-08-02 11:42 | Discharge Summary ---
Providers - Providers Date of Admission: 07/31/19 19:46 Attending physician: CONNOR KEMP MD 07/31/19 17:12 Consult to Physician [CONS] Routine Comment: Consulting Provider: LELAND ZAMORA Physician Instructions: Reason For Exam: respiratory failure 07/31/19 17:14 Consult to Physician [CONS] Routine Comment: Consulting Provider: CARLITO DUNBAR Physician Instructions: Reason For Exam: ESRD 08/01/19 10:29 Physical Therapy Evaluation and Treat [CONS] Routine Comment: Reason For Exam: Debility 08/01/19 10:30 Occupational Therapy Evaluate and Treat [CONS] Routine Comment: Reason For Exam: Debility 08/01/19 12:05 Consult to Physician [CONS] Urgent Comment: Consulting Provider: VALERIE DAVID Physician Instructions: Reason For Exam: R/O Shingles Primary care physician: WILDLIFE PHOTOGRAPHER Hospitalization Condition: Stable Hospital course: 54 YO Male with ESRD on HD readmitted to ICU for Acute Respiratory Failure Suspected secondary to Air Embolism. Pt discharged from ICU and transferred to [facility] in [place], [place]. Pt transferred to [facility]. Pt admitted to ICU. Pt seen and evaluated in his room upon arrival. Pt denies fever, chills, CP, Palpitations, NVD, Trauma, or recent ill contacts. Pt acknowledges painful blisters around his mouth. Nephrology consulted upon arrival. Pulmonary team consulted upon arrival. * Hyperbaric treatment was not done * Patient refused rehab placement wants home with home health - Patient Problems (1) Acute respiratory failure with hypoxia Supplemental oxygen, chest x ray, nebulizer therapy, pulse oximetry, pulmonary toilet, Pulmonary team consulted. (2) Air embolism Current Visit: No Status: Acute Qualifiers: Encounter type: initial encounter Qualified Code(s): T79.0XXA - Air embolism (traumatic), initial encounter Plan to address problem: Suspected: Resolved: supplemental oxygen, pulse oximetry, supportive care, Pulmonary team consulted. (3) ESRD (end stage renal disease) Current Visit: No Status: Acute Plan to address problem: Nephrology team consulted in ED, dialysis as per renal team. Dialysis set up for T/T/S patient and family advised (4) SIRS (systemic inflammatory response syndrome) Current Visit: No Status: Acute Plan to address problem: CBC, CMP, chest x ray, urinalysis. empiric antibiotic therapy discontinued, HSV pcr ORDERED. (5) Perioral dermatitis Current Visit: Yes Status: Acute Plan to address problem: Rapid strep screen, HSV PCR, empiric antibiotic therapy started on Valtrex treatment patient and family advised. Oral onitment added Disposition: [id number]/[id number] HOME UNDER HOME [facility] Time spent for discharge: 35 mins Exam - Constitutional Vitals: Temp Pulse Resp BP Pulse Ox 98.0 F 78 18 121/57 90 08/02/19 04:54 08/02/19 04:54 08/02/19 04:54 08/02/19 04:54 08/02/19 04:54 Plan Activity: advance as tolerated, fall precautions Diet: renal Special Instructions: record daily BP diary, physical therapy, occupational therapy Follow up with: PRIMARY CARE, [Primary Care Provider] - 7 Days MARCUS VILLATORO MD [Staff Physician] - 7 Days MANUEL READ MD [Staff Physician] - 7 Days LELAND ZAMORA MD [Staff Physician] - 7 Days
--- NOTE | 2019-08-02 11:51 | Progress Note ---
Assessment and Plan Assessment and plan: 54 YO Male with ESRD on HD readmitted to ICU for Acute Respiratory Failure Suspected secondary to Air Embolism. Pt discharged from ICU and transferred to [facility], in [place], [place]. Pt transferred to [facility]. Pt admitted to ICU. Pt seen and evaluated in his room upon arrival. Pt denies fever, chills, CP, Palpitations, NVD, Trauma, or recent ill contacts. Pt acknowledges painful blisters around his mouth. Nephrology consulted upon arrival. Pulmonary team consulted upon arrival. 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 (2) Air embolism Current Visit: No Status: Acute Qualifiers: Encounter type: initial encounter Qualified Code(s): T79.0XXA - Air embolism (traumatic), initial encounter Plan to address problem: Suspected: Resolved: supplemental oxygen, pulse oximetry, supportive care, Pulmonary team consulted. (3) ESRD (end stage renal disease) Current Visit: No Status: Acute Plan to address problem: Nephrology team consulted in ED, dialysis as per renal team. (4) SIRS (systemic inflammatory response syndrome) Current Visit: No Status: Acute Plan to address problem: CBC, CMP, chest x ray, urinalysis. empiric antibiotic therapy discontinued, HSV pcr ORDERED. (5) Perioral dermatitis Current Visit: Yes Status: Acute Plan to address problem: Rapid strep screen, HSV PCR, empiric antibiotic therapy Started on Valtrex treatment (6) Metabolic Encephalopathy Lumber puncture for ANALYSIS PSYCH CONSULT NEUROLOGY CONSULT (7) DVT prophylaxis Current Visit: Yes Status: Acute Plan to address problem: SCD to BLE while in bed, Anticipate discharge over the weekend if encphalopathy work up is negative History Interval history: Patient seen and examined, sitting up today, still with perioral lesion now improved some. Appears with some neglect today Hospitalist Physical - Physical exam Narrative exam: Constitutional: Alert, cooperative. No acute distress Head, Ears, Nose: Normocephalic, atraumatic. External ears, nose normal. Neck: Supple, no meningeal signs Oral: hemorrhagic lesions involving upper and lower lip, with no oral mucosa involvement, few papular lesions laterally on the left side, tender. No thrush, no oral mucosa involvement. Cardiovascular: S1, S2 normal. Respiratory: Good air entry, clear to auscultation bilaterally GI: Soft, non-tender; bowel sounds normal. No peritoneal signs. Musculoskeletal: No pedal edema, no cyanosis. Left AVG + Skin: No rash or abscess Hem/Lymphatic: No palpable cervical or supraclavicular nodes. No lymphangitis Neurological: Awake, alert, oriented x2 but poor judgment. No gross abnormality - Constitutional Vitals: Temp Pulse Resp BP Pulse Ox 98.0 F 78 18 121/57 90 08/02/19 04:54 08/02/19 04:54 08/02/19 04:54 08/02/19 04:54 08/02/19 04:54 General appearance: Present: mild distress Results - Labs CBC & Chem 7: 08/01/19 06:26 08/01/19 06:26 Labs: Laboratory Last Values WBC 16.6 K/mm3 (4.5-11.0) H 08/01/19 06:26 RBC 3.00 M/mm3 (3.65-5.03) L 08/01/19 06:26 Hgb 8.6 gm/dl (11.8-15.2) L 08/01/19 06:26 Hct 26.8 % (35.5-45.6) L 08/01/19 06:26 MCV 89 fl (84-94) 08/01/19 06:26 MCH 29 pg (28-32) 08/01/19 06:26 MCHC 32 % (32-34) 08/01/19 06:26 RDW 14.1 % (13.2-15.2) 08/01/19 06:26 Plt Count 236 K/mm3 (140-440) 08/01/19 06:26 Add Manual Diff Complete 08/01/19 06:26 Total Counted 100 08/01/19 06:26 Seg Neuts % (Manual) 82.0 % (40.0-70.0) H 08/01/19 06:26 Band Neutrophils % 2.0 % 08/01/19 06:26 Lymphocytes % (Manual) 7.0 % (13.4-35.0) L 08/01/19 06:26 Reactive Lymphs % (Man) 0 % 08/01/19 06:26 Monocytes % (Manual) 7.0 % (0.0-7.3) 08/01/19 06:26 Eosinophils % (Manual) 0 % (0.0-4.3) 08/01/19 06:26 Basophils % (Manual) 1.0 % (0.0-1.8) 08/01/19 06:26 Metamyelocytes % 1.0 % 08/01/19 06:26 Myelocytes % 0 % 08/01/19 06:26 Promyelocytes % 0 % 08/01/19 06:26 Blast Cells % 0 % 08/01/19 06:26 Nucleated RBC % Not Reportable 08/01/19 06:26 Seg Neutrophils # Man 13.6 K/mm3 (1.8-7.7) H 08/01/19 06:26 Band Neutrophils # 0.3 K/mm3 08/01/19 06:26 Lymphocytes # (Manual) 1.2 K/mm3 (1.2-5.4) 08/01/19 06:26 Abs React Lymphs (Man) 0.0 K/mm3 08/01/19 06:26 Monocytes # (Manual) 1.2 K/mm3 (0.0-0.8) H 08/01/19 06:26 Eosinophils # (Manual) 0.0 K/mm3 (0.0-0.4) 08/01/19 06:26 Basophils # (Manual) 0.2 K/mm3 (0.0-0.1) H 08/01/19 06:26 Metamyelocytes # 0.2 K/mm3 08/01/19 06:26 Myelocytes # 0.0 K/mm3 08/01/19 06:26 Promyelocytes # 0.0 K/mm3 08/01/19 06:26 Blast Cells # 0.0 K/mm3 08/01/19 06:26 WBC Morphology Not Reportable 08/01/19 06:26 Hypersegmented Neuts Not Reportable 08/01/19 06:26 Hyposegmented Neuts Not Reportable 08/01/19 06:26 Hypogranular Neuts Not Reportable 08/01/19 06:26 Smudge Cells Not Reportable 08/01/19 06:26 Toxic Granulation Not Reportable 08/01/19 06:26 Toxic Vacuolation Not Reportable 08/01/19 06:26 Dohle Bodies Not Reportable 08/01/19 06:26 Pelger-Huet Anomaly Not Reportable 08/01/19 06:26 Mago Rods Not Reportable 08/01/19 06:26 Platelet Estimate Consistent w auto 08/01/19 06:26 Clumped Platelets Not Reportable 08/01/19 06:26 Plt Clumps, EDTA Not Reportable 08/01/19 06:26 Large Platelets Few 08/01/19 06:26 Giant Platelets Not Reportable 08/01/19 06:26 Platelet Satelliting Not Reportable 08/01/19 06:26 Plt Morphology Comment Not Reportable 08/01/19 06:26 RBC Morphology Not Reportable 08/01/19 06:26 Dimorphic RBCs Not Reportable 08/01/19 06:26 Polychromasia Not Reportable 08/01/19 06:26 Hypochromasia Not Reportable 08/01/19 06:26 Poikilocytosis Not Reportable 08/01/19 06:26 Anisocytosis 1+ 08/01/19 06:26 Microcytosis Not Reportable 08/01/19 06:26 Macrocytosis Not Reportable 08/01/19 06:26 Spherocytes Not Reportable 08/01/19 06:26 Pappenheimer Bodies Not Reportable 08/01/19 06:26 Sickle Cells Not Reportable 08/01/19 06:26 Target Cells Not Reportable 08/01/19 06:26 Tear Drop Cells Not Reportable 08/01/19 06:26 Ovalocytes Not Reportable 08/01/19 06:26 Helmet Cells Not Reportable 08/01/19 06:26 Rao-Whitmer Bodies Not Reportable 08/01/19 06:26 Ray Rings Not Reportable 08/01/19 06:26 [place] Cells Not Reportable 08/01/19 06:26 Bite Cells Not Reportable 08/01/19 06:26 Crenated Cell Not Reportable 08/01/19 06:26 Elliptocytes Not Reportable 08/01/19 06:26 Acanthocytes (Spur) Not Reportable 08/01/19 06:26 Rouleaux Not Reportable 08/01/19 06:26 Hemoglobin C Crystals Not Reportable 08/01/19 06:26 Schistocytes Not Reportable 08/01/19 06:26 Malaria parasites Not Reportable 08/01/19 06:26 Shahriar Bodies Not Reportable 08/01/19 06:26 Hem Pathologist Commnt No 08/01/19 06:26 Sodium 140 mmol/L (137-145) 08/01/19 06:26 Potassium 4.5 mmol/L (3.6-5.0) 08/01/19 06:26 Chloride 98.5 mmol/L (98-107) 08/01/19 06:26 Carbon Dioxide 14 mmol/L (22-30) L 08/01/19 06:26 Anion Gap 32 mmol/L 08/01/19 06:26 BUN 106 mg/dL (9-20) H 08/01/19 06:26 Creatinine 9.4 mg/dL (0.8-1.5) H 08/01/19 06:26 Estimated GFR 7 ml/min 08/01/19 06:26 BUN/Creatinine Ratio 11 % 08/01/19 06:26 Glucose 83 mg/dL (75-100) 08/01/19 06:26 POC Glucose 98 (70-105) 08/01/19 12:56 Calcium 8.9 mg/dL (8.4-10.2) 08/01/19 06:26 Total Bilirubin 0.30 mg/dL (0.1-1.2) 08/01/19 06:26 AST 17 units/L (5-40) 08/01/19 06:26 ALT 26 units/L (7-56) 08/01/19 06:26 Alkaline Phosphatase 97 units/L (35-129) 08/01/19 06:26 Total Protein 6.9 g/dL (6.3-8.2) 08/01/19 06:26 Albumin 3.1 g/dL (3.9-5) L 08/01/19 06:26 Albumin/Globulin Ratio 0.8 % 08/01/19 06:26 Hepatitis A IgM Ab Non-reactive (NonReactive) 08/01/19 15:26 Hep Bs Antigen Non-reactive (Negative) 08/01/19 15:26 Hep B Core IgM Ab Non-reactive (NonReactive) 08/01/19 15:26 Hepatitis C Antibody Non-reactive (NonReactive) 08/01/19 15:26 Group A Strep Rapid Negative (Negative) 07/31/19 22:45 Active Medications - Current Medications Current Medications: Generic Name Dose Route Start Last Admin Trade Name Freq PRN Reason Stop Dose Admin Dextrose 50 ml 07/31/19 17:13 D50w (25gm) Syringe IV Q30MIN PRN HYPOGLYCEMIA Protocol Enoxaparin Sodium 30 mg 08/01/19 10:00 08/01/19 10:47 Enoxaparin SUB-Q 30 mg QDAY JOSEFINA Administration Epoetin Jose 4,000 unit 08/01/19 11:55 Procrit IV EDITH PRN hemodialysis Sodium Chloride 100 mls @ 999 mls/hr 08/01/19 11:54 Nacl 0.9% IV EDITH PRN Hypotension Sodium Chloride 10 ml 07/31/19 22:00 08/01/19 22:31 Sodium Chloride Flush Syringe 10 Ml IV 10 ml BID JOSEFINA Administration Sodium Chloride 10 ml 07/31/19 17:11 Sodium Chloride Flush Syringe 10 Ml IV PRN PRN LINE FLUSH Valacyclovir HCl 500 mg 08/01/19 15:00 08/01/19 16:03 Valtrex PO 500 mg QDAY JOSEFINA Administration Nutrition/Malnutrition Assess - Dietary Evaluation Nutrition/Malnutrition Findings: Nutrition Notes Start: 08/01/19 10:06 Freq: Status: Active Protocol: Document 08/02/19 10:31 GABRIEL (Rec: 08/02/19 11:18 GABRIEL [id number]) Co-Sign 08/02/19 10:31 LP Nutrition Notes Initial or Follow up Reassessment Current Diagnosis CKD (stage V CKD) Other Pertinent Diagnosis ESRD on HD, ARF, SIRS, perioral dermatitis Current Diet Renal Labs/Tests BUN 106 Cr 9.4 Pertinent Medications Reviewed Height 5 ft 6 in Weight 121.4 kg [place] Body Weight (kg) 64.54 BMI 43.2 Weight Status Morbidly Obese Subjective/Other Information F/U for PO and ONS intakes. Pt was on airborne precautions. Called nurse and she stated that he had eaten about 25% of breakfast and hasn't drank the nepro yet. Percent of energy/protein needs met: 26%/18% Burn Absent Trauma Absent Minimum of two criteria No physical signs of malnutrition #1 Nutrition Diagnosis Inadequate oral intake Diagnosis Progress(for reassessment Continues documentation) Is patient on ventilator? No Is Patient Ambulatory and/or Out of Bed Yes REE-([facility]-ambulatory/OOB) [ 2595.775 NUTR.[id number]] Kcal/Kg value to use for calculation 17 Approximate Energy Requirements Using 2063 kcal/Kg Calculation Used for Recommendations Kcal/kg Additional Notes PRO needs: >110g/day(>1.2g/kg/ AdBW 92kg) Fluid neds: 1-1.5L/day or per MD Nutrition Intervention Change Diet Order: Continue renal diet Add Supplement/Snack (indicate name/kcal Nepro once a day /protein ) Provides kCal: 425 Provides Protein (gm) 19 Goal #1 Pt meet >80% of kcal/PRO needs via PO and ONS. Goal #2 Wound healing Follow-Up By: 08/06/19 Additional Comments F/U for PO/ONS intakes.
[2019-08-02] MEDS: valACYclovir 500 MG TAB PO SCH (12:23)
[2019-08-02] MEDS: ENOXAPARIN 30 MG/0.3 ML INJ SUB-Q SCH (12:23)
--- NOTE | 2019-08-02 13:25 | Progress Note ---
Assessment and Plan Cultures: None this admission. Previous admission cultures reviewed, negative. Outside hospital chart reviewed. A/P: 54-year-old male with ESRD on hemodialysis was recently hospitalized here about 10 days ago with acute respiratory failure initially thought to be secondary to air embolism, and now transferred back: 1) Severe lip and perioral lesions: New onset. Appear hemorrhagic and tender. 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 No oral mucosa involvement, no ocular involvem ent, no rash anywhere else, so SJS/TEN seems less likely. Monitor closely for any changes. airborne isolation not needed. This is not Shingles/Herpes Zoster. 2) ESRD on HD: renally dose Valtrex. 3) Acute encephalopathy: given concern for HSV reactivation, agree with plans for LP, would send CSF for cell count, culture, protein, glucose and HSV PCR. If cell count concerning, would switch to IV acyclovir Recs: agree with plans for LP, would send CSF for cell count, culture, protein, glucose and HSV PCR f/u HSV PCR swab from the perioral lesions continue PO Valtrex renally adjusted for now. If LP findings are concerning, would switch to IV acyclovir Monitor closely for any changes/worsening d/w Dr. [place]. Saman Mcdaniel MD, FACP [facility] C: [phone] O: [phone] F: [phone] Subjective Date of service: 08/02/19 Principal diagnosis: shortness of breath Interval history: Discharge cancelled due to concern for mental status changes this morning. Fami ly member at bedside, thinks he is better now but not completely at baseline. Also, patient complains of oral pain and is requesting some topical medication. Objective - Exam Narrative Exam: Physical Exam: Constitutional: Alert, cooperative. No acute distress Head, Ears, Nose: Normocephalic, atraumatic. External ears, nose normal. Eyes: Conjunctivae/corneas clear. No icterus. No ptosis. Neck: Supple, no meningeal signs Oral: hemorrhagic lesions involving upper and lower lip, few papular lesions laterally on the left side, tender. No thrush, no oral mucosa involvement. Cardiovascular: S1, S2 normal. Respiratory: Good air entry, clear to auscultation bilaterally GI: Soft, non-tender; bowel sounds normal. No peritoneal signs. Musculoskeletal: No pedal edema, no cyanosis. Left AVG + Skin: No rash or abscess Hem/Lymphatic: No palpable cervical or supraclavicular nodes. No lymphangitis Psych: Mood ok. Affect normal Neurological: Awake, alert, oriented. - Constitutional Vitals: Vital Signs Temp Pulse Resp BP Pulse Ox 98.8 F 89 18 203/98 99 08/02/19 12:11 08/02/19 12:11 08/02/19 12:11 08/02/19 12:11 08/02/19 12:11 Temperature -Last 24 Hours Temperature 98.8 F Temperature 98.0 F Temperature 97.4 F Temperature 98.4 F - Labs CBC & Chem 7: 08/01/19 06:26 08/01/19 06:26
[2019-08-02 15:17] LABS: INR 1.31 (0.87-1.13)
--- NOTE | 2019-08-02 17:33 | Consultation ---
Past History Past Medical History: ESRD, hypertension, other (seee hpi) Past Surgical History: Other (dialysis access) Social history: single, lives with family. denies: smoking, alcohol abuse, pr escription drug abuse Family history: hypertension Medications and Allergies Allergies Allergy/AdvReac Type Severity Reaction Status Date / Time No Known Allergies Allergy Unverified 07/23/19 01:49 Home Medications Medication Instructions Recorded Confirmed Last Taken Type Dextrose 50% in Water [D50W (25GM) 50 ml IV Q30MIN PRN syringe 07/23/19 08/01/19 Unknown Rx Syringe] Enoxaparin 30 mg SUB-Q QDAY syringe 07/23/19 08/01/19 Unknown Rx Midazolam 100 mg IV TITR vial 07/23/19 08/01/19 Unknown Rx Oseltamivir Phosphate [Tamiflu] 30 mg PO DAILY oralsyr 07/23/19 08/01/19 Unknown Rx Phenylephrine 100 mg IV TITR vial 07/23/19 08/01/19 Unknown Rx Sodium Bicarbonate 150 meq IV DIRECT vial 07/23/19 08/01/19 Unknown Rx Sodium Bicarbonate [SODIUM 50 meq IV ONCE PRN syringe 07/23/19 08/01/19 Unknown Rx BICARBONATE 50mEq Syringe] Sodium Chloride 0.9% Int [Sodium 10 ml IV BID syringe 07/23/19 08/01/19 Unknown Rx Chloride Flush Syringe 10 ml] Sodium Chloride 0.9% [NaCl 0.9% 100 ml IV TITR bag 07/23/19 08/01/19 Unknown Rx 100 ML] Vasopressin [Vasostrict] 20 unit IV DIRECT vial 07/23/19 08/01/19 Unknown Rx Aspirin [Aspirin BABY CHEW TAB] 81 mg PO QDAY 08/01/19 08/01/19 Unknown History AtorvaSTATin [Lipitor] 40 mg PO QHS 08/01/19 08/01/19 Unknown History Epoetin Jose 10,000 Unit [Procrit] 10,000 unit SQ Q2W 08/01/19 08/01/19 Unknown History Hydralazine HCl 50 mg PO TID 08/01/19 08/01/19 Unknown History NIFEdipine [Nifedipine ER] 30 mg PO Q12HR 08/01/19 08/01/19 Unknown History Active Meds: Active Medications Acyclovir (Acyclovir) 1 applic TP 5XD JOSEFINA Dextrose (D50w (25gm) Syringe) 50 ml IV Q30MIN PRN; Protocol PRN Reason: HYPOGLYCEMIA Enoxaparin Sodium (Enoxaparin) 30 mg SUB-Q QDAY [facility] Last Admin: 08/02/19 12:23 Dose: Not Given Documented by: Epoetin Jose (Procrit) 4,000 unit IV EDITH PRN PRN Reason: hemodialysis Sodium Chloride (Nacl 0.9%) 100 mls @ 999 mls/hr IV EDITH PRN PRN Reason: Hypotension Sodium Chloride (Sodium Chloride Flush Syringe 10 Ml) 10 ml IV BID [facility] Last Admin: 08/02/19 12:23 Dose: 10 ml Documented by: Sodium Chloride (Sodium Chloride Flush Syringe 10 Ml) 10 ml IV PRN PRN PRN Reason: LINE FLUSH Valacyclovir HCl (Valtrex) 500 mg PO QDAY [facility] Last Admin: 08/02/19 12:23 Dose: 500 mg Documented by: Physical Examination - Vital Signs Vital Signs: Vital Signs Pulse Resp Pulse Ox 65 14 88 07/31/19 18:58 07/31/19 18:58 07/31/19 18:58 Results - Laboratory Findings CBC and BMP: 08/01/19 06:26 08/01/19 06:26 Abnormal Lab Findings: Abnormal Labs 07/31/19 07/31/19 07/31/19 20:05 20:05 21:46 WBC 15.4 H RBC 3.14 L Hgb 9.0 L Hct 27.8 L Seg Neuts % (Manual) 85.0 H Lymphocytes % (Manual) 9.0 L Seg Neutrophils # Man 13.1 H Monocytes # (Manual) Basophils # (Manual) PT INR Chloride 97.1 L Carbon Dioxide 20 L BUN 91 H Creatinine 8.1 H POC Glucose 196 H Albumin 3.4 L 08/01/19 08/01/19 08/02/19 06:26 06:26 13:19 WBC 16.6 H RBC 3.00 L Hgb 8.6 L Hct 26.8 L Seg Neuts % (Manual) 82.0 H Lymphocytes % (Manual) 7.0 L Seg Neutrophils # Man 13.6 H Monocytes # (Manual) 1.2 H Basophils # (Manual) 0.2 H PT 16.1 H INR 1.31 H Chloride Carbon Dioxide 14 L BUN 106 H Creatinine 9.4 H POC Glucose Albumin 3.1 L Assessment and Plan 54 YEAR OLD MALE WITH HISTORY OF HYPERTENSION, ESRD ON DIALYSIS, WHO DEVELOPED RESPIRATORY DISTRESS SUSPECTED TO BE FROM AIR EMBOLISM FROM WHICH HE WAS ADMITTED TO ICU IN THIS HOSPITAL MORE THAN A WEEK AGO AND WAS TRANSFERRED TO A OUT OF STATE HYPER BARIC OXYGEN FACILITY FOR ADMINISTRATION OF HYPER BARIC OXYGEN. HOWEVER, HE WAS NOT NOT DIAGNOSED WITH AIR EMBOLISM AND WAS NOT GIVEN HYPER BARIC OXYGEN. HE WAS TREATED FOR SEPSIS AND SENT BACK TO THIS HOSPITAL, UPON RETURN HE WAS FOUND TO HAVE ALTERED MENTAL STATUS WHICH LED TO THIS NEURO CONSULT. PATIENT'S NIECE WHO LIVES WITH HIM STATED THAT HIS MENTAL STATUS FLUCTUATES.IT GETS BETTER AT TIMES AND AT TIMES IT IS WORSE. REVIEW OF LAB SHOWS THAT HIS BUN IS ELEVATED, IT WAS 103 THIS AM AND ALSO INCRAEESD WBC WITH INCRAEESD NEUTROPHIL INDICATING ON GOING INFECTION, HAS ALSO BLEEDING SWOLLEN LIPS. PHYSICAL EXAMINATION ALERT AND APPROPRIATE, ANSWERS QUESTIONS APPROPRIATELY,PATIENT WAS EXAMINED RIGHT AFTER DIALYSIS.HE KNOWS THE MONTH AND YEAR AND DATE, KNOWS WHO IS THE PRESIDENT, IS AWARE OF SOCIAL AND POLITICAL DEMOGRAPHICS. HEART. NORMAL RATE AND RHYTHM CAROTIDS-BOTH PALPABLE, CRANIAL NERVES -ALL WITH IN NORMAL LIMIT, MOTOR- NORMAL STRENGTH IN ALL FOUR EXTREMITIES. COORDINATION- FINGER TO NOSE IS NORMAL REFLEXES- NORMAL REFLEXES WITHOUT ANY ASYMMETRY WITH BILATERAL DOWN GOING TOES. SENSORY - SENSORY EXAMINATION IS GROSSLY WITH IN NORMAL LIMIT, IMPRESSION. 1. PATIENT SEEMS TO HAVE SEPTIC METABOLIC ENCEPHALOPATHY FROM ELEVATED BUN AND FROM ONGOING INFECTION. RECOMMEND. 1. REGULAR DIALYSIS ON TIME 2. TREAT INFECTION 3. WILL SIGN OFF,NOTHING ADDITIONAL TO OFFER AT PRESENT FROM NEURO STAND POINT
[2019-08-02] MEDS: ACYCLOVIR TP SCH ×3 (17:36→21:08)
[2019-08-03] MEDS ORDERED: ONDANSETRON 4 MG/2 ML INJ IV PRN (04:23)
[2019-08-03] MEDS: ACYCLOVIR TP SCH ×5 (05:55→21:43)
[2019-08-03] MEDS: valACYclovir 500 MG TAB PO SCH (10:29)
[2019-08-03] MEDS: ENOXAPARIN 30 MG/0.3 ML INJ SUB-Q SCH (10:29)
--- NOTE | 2019-08-03 12:14 | Progress Note ---
Assessment and Plan Impression * End-stage renal disease on maintenance hemodialysis * Respiratory failure * Secondary hyperparathyroidism * Hypertension * Anemia * Ulcerated lesions in the lips Recommendations * Patient is status post uneventful hemodialysis yesterday * Continue dialysis on MWF schedule * Patient states that he is currently on home hemodialysis. However he wishes to transition to [facility] . Will need to get case management involved to find him an outpatient dialysis spot. He is currently under the care of [facility] * Continue Procrit with dialysis * Continue binders and vitamin D analogs * ID consult appreciated * Patient is clinically out of CHF Subjective Date of service: 08/03/19 Principal diagnosis: shortness of breath Interval history: Patient is comfortable this morning. Denies any shortness of breath. No nausea or vomiting. Objective - Vital Signs Vital signs: Vital Signs - 12hr 08/03/19 08/03/19 00:28 04:10 Pulse Rate 105 H Blood Pressure 112/55 - General Appearance General appearance: well-developed, well-nourished, appears stated age EENT: PERRL, mucous membranes moist, other (crusted lesion noted in his lips) Neck: no JVD, no thyromegaly, no carotid bruit, supple Respiratory: Present: Clear to Ascultation Cardiology: regular, normal heart rate, S1S2, no murmurs Gastrointestinal: normal, normoactive bowel sounds Integumentary: no rash, other (no edema. AV graft in his left upper arm. Good bruit and thrill.) - Lab 08/01/19 06:26 08/01/19 06:26 Most recent lab results Calcium 8.9 mg/dL (8.4-10.2) 08/01/19 06:26 Medications & Allergies - Medications Allergies/Adverse Reactions: Allergies No Known Allergies Allergy (Unverified 07/23/19 01:49) Home Medications: Home Medications Medication Instructions Recorded Confirmed Last Taken Type Dextrose 50% in Water [D50W (25GM) 50 ml IV Q30MIN PRN syringe 07/23/19 08/01/19 Unknown Rx Syringe] Enoxaparin 30 mg SUB-Q QDAY syringe 07/23/19 08/01/19 Unknown Rx Midazolam 100 mg IV TITR vial 07/23/19 08/01/19 Unknown Rx Oseltamivir Phosphate [Tamiflu] 30 mg PO DAILY oralsyr 07/23/19 08/01/19 Unknown Rx Phenylephrine 100 mg IV TITR vial 07/23/19 08/01/19 Unknown Rx Sodium Bicarbonate 150 meq IV DIRECT vial 07/23/19 08/01/19 Unknown Rx Sodium Bicarbonate [SODIUM 50 meq IV ONCE PRN syringe 07/23/19 08/01/19 Unknown Rx BICARBONATE 50mEq Syringe] Sodium Chloride 0.9% Int [Sodium 10 ml IV BID syringe 07/23/19 08/01/19 Unknown Rx Chloride Flush Syringe 10 ml] Sodium Chloride 0.9% [NaCl 0.9% 100 ml IV TITR bag 07/23/19 08/01/19 Unknown Rx 100 ML] Vasopressin [Vasostrict] 20 unit IV DIRECT vial 07/23/19 08/01/19 Unknown Rx Aspirin [Aspirin BABY CHEW TAB] 81 mg PO QDAY 08/01/19 08/01/19 Unknown History AtorvaSTATin [Lipitor] 40 mg PO QHS 08/01/19 08/01/19 Unknown History Epoetin Jose 10,000 Unit [Procrit] 10,000 unit SQ Q2W 08/01/19 08/01/19 Unknown History Hydralazine HCl 50 mg PO TID 08/01/19 08/01/19 Unknown History NIFEdipine [Nifedipine ER] 30 mg PO Q12HR 08/01/19 08/01/19 Unknown History Active Medications: Generic Name Dose Route Start Last Admin Trade Name Freq PRN Reason Stop Dose Admin Acyclovir 1 applic 08/02/19 14:00 08/03/19 10:29 Acyclovir TP 1 applic 5XD JOSEFINA Administration Dextrose 50 ml 07/31/19 17:13 D50w (25gm) Syringe IV Q30MIN PRN HYPOGLYCEMIA Protocol Enoxaparin Sodium 30 mg 08/01/19 10:00 08/03/19 10:29 Enoxaparin SUB-Q 30 mg QDAY JOSEFINA Administration Epoetin Jose 4,000 unit 08/01/19 11:55 Procrit IV EDITH PRN hemodialysis Sodium Chloride 100 mls @ 999 mls/hr 08/01/19 11:54 Nacl 0.9% IV EDITH PRN Hypotension Ondansetron HCl 4 mg 08/03/19 04:23 08/03/19 05:55 Zofran IV 4 mg Q6H PRN Administration Nausea And Vomiting Sodium Chloride 10 ml 07/31/19 22:00 08/03/19 10:29 Sodium Chloride Flush Syringe 10 Ml IV 10 ml BID JOSEFINA Administration Sodium Chloride 10 ml 07/31/19 17:11 Sodium Chloride Flush Syringe 10 Ml IV PRN PRN LINE FLUSH Valacyclovir HCl 500 mg 08/01/19 15:00 08/03/19 10:29 Valtrex PO 500 mg QDAY JOSEFINA Administration
--- NOTE | 2019-08-03 15:02 | Progress Note ---
Assessment and Plan - Patient Problems (1) Metabolic encephalopathy Current Visit: Yes Status: Acute Plan to address problem: Patient currently being worked up for metabolic encephalopathy not at baseline. Initial workup negative. Lumbar puncture planned for Monday. (2) Perioral dermatitis Current Visit: Yes Status: Acute Plan to address problem: Periorbital dermatitis. I suspect herpes simplex virus as well. We'll treat pain. Morphine and viscous lidocaine solution. Continue antiretroviral. (3) Acute respiratory failure with hypoxia Current Visit: No Status: Acute Plan to address problem: Recommended to air embolism has resolved. Shortness of breath resolved much better. Stable for transfer. (4) ESRD (end stage renal disease) Current Visit: No Status: Acute Plan to address problem: Patient scheduled for hemodialysis on Monday. Discharged to facility after hemodialysis. (5) SIRS (systemic inflammatory response syndrome) Current Visit: No Status: Acute Plan to address problem: Resolving. Afebrile more alert. Still has leukocytosis. Could be secondary to perioral dermatitis History Interval history: Patient complains of mild pain today. States he feels much better than he did previously. Patient is a 54-year-old with history of end-stage renal disease acute respiratory failure secondary to air embolism. Family members at bedside states he's had a cognitive decline patient currently being worked up for herpes simplex virus and acute encephalopathy area patient able to make needs known tod ay. Alert and oriented. Able to answer appropriate questions. Family states he's not at his baseline. Therefore proceed with present workup. Hospitalist Physical - Constitutional Vitals: Temp Pulse Resp BP Pulse Ox 98.8 F 81 18 123/53 83 L 08/03/19 13:36 08/03/19 13:36 08/03/19 13:36 08/03/19 13:36 08/03/19 13:36 General appearance: Present: mild distress - EENT ENT: other (significant oral ulcers as well as blisters on tongue and following to Mnire's.) - Neck Neck: Present: supple, normal ROM - Respiratory Respiratory effort: normal Respiratory: bilateral: CTA - Cardiovascular Rhythm: regular Heart Sounds: Present: S1 & S2 - Extremities Extremities: no ischemia, pulses symmetrical, No edema Peripheral Pulses: within normal limits - Abdominal General gastrointestinal: soft, non-tender, non-distended, normal bowel sounds - Integumentary Integumentary: Present: clear, warm, dry - Psychiatric Psychiatric: appropriate mood/affect, intact judgment & insight - Neurologic Neurologic: CNII-XII intact, focal deficits Results - Labs CBC & Chem 7: 08/01/19 06:26 08/01/19 06:26 Labs: Laboratory Last Values WBC 16.6 K/mm3 (4.5-11.0) H 08/01/19 06:26 RBC 3.00 M/mm3 (3.65-5.03) L 08/01/19 06:26 Hgb 8.6 gm/dl (11.8-15.2) L 08/01/19 06:26 Hct 26.8 % (35.5-45.6) L 08/01/19 06:26 MCV 89 fl (84-94) 08/01/19 06:26 MCH 29 pg (28-32) 08/01/19 06:26 MCHC 32 % (32-34) 08/01/19 06:26 RDW 14.1 % (13.2-15.2) 08/01/19 06:26 Plt Count 236 K/mm3 (140-440) 08/01/19 06:26 Add Manual Diff Complete 08/01/19 06:26 Total Counted 100 08/01/19 06:26 Seg Neuts % (Manual) 82.0 % (40.0-70.0) H 08/01/19 06:26 Band Neutrophils % 2.0 % 08/01/19 06:26 Lymphocytes % (Manual) 7.0 % (13.4-35.0) L 08/01/19 06:26 Reactive Lymphs % (Man) 0 % 08/01/19 06:26 Monocytes % (Manual) 7.0 % (0.0-7.3) 08/01/19 06:26 Eosinophils % (Manual) 0 % (0.0-4.3) 08/01/19 06:26 Basophils % (Manual) 1.0 % (0.0-1.8) 08/01/19 06:26 Metamyelocytes % 1.0 % 08/01/19 06:26 Myelocytes % 0 % 08/01/19 06:26 Promyelocytes % 0 % 08/01/19 06:26 Blast Cells % 0 % 08/01/19 06:26 Nucleated RBC % Not Reportable 08/01/19 06:26 Seg Neutrophils # Man 13.6 K/mm3 (1.8-7.7) H 08/01/19 06:26 Band Neutrophils # 0.3 K/mm3 08/01/19 06:26 Lymphocytes # (Manual) 1.2 K/mm3 (1.2-5.4) 08/01/19 06:26 Abs React Lymphs (Man) 0.0 K/mm3 08/01/19 06:26 Monocytes # (Manual) 1.2 K/mm3 (0.0-0.8) H 08/01/19 06:26 Eosinophils # (Manual) 0.0 K/mm3 (0.0-0.4) 08/01/19 06:26 Basophils # (Manual) 0.2 K/mm3 (0.0-0.1) H 08/01/19 06:26 Metamyelocytes # 0.2 K/mm3 08/01/19 06:26 Myelocytes # 0.0 K/mm3 08/01/19 06:26 Promyelocytes # 0.0 K/mm3 08/01/19 06:26 Blast Cells # 0.0 K/mm3 08/01/19 06:26 WBC Morphology Not Reportable 08/01/19 06:26 Hypersegmented Neuts Not Reportable 08/01/19 06:26 Hyposegmented Neuts Not Reportable 08/01/19 06:26 Hypogranular Neuts Not Reportable 08/01/19 06:26 Smudge Cells Not Reportable 08/01/19 06:26 Toxic Granulation Not Reportable 08/01/19 06:26 Toxic Vacuolation Not Reportable 08/01/19 06:26 Dohle Bodies Not Reportable 08/01/19 06:26 Pelger-Huet Anomaly Not Reportable 08/01/19 06:26 Mago Rods Not Reportable 08/01/19 06:26 Platelet Estimate Consistent w auto 08/01/19 06:26 Clumped Platelets Not Reportable 08/01/19 06:26 Plt Clumps, EDTA Not Reportable 08/01/19 06:26 Large Platelets Few 08/01/19 06:26 Giant Platelets Not Reportable 08/01/19 06:26 Platelet Satelliting Not Reportable 08/01/19 06:26 Plt Morphology Comment Not Reportable 08/01/19 06:26 RBC Morphology Not Reportable 08/01/19 06:26 Dimorphic RBCs Not Reportable 08/01/19 06:26 Polychromasia Not Reportable 08/01/19 06:26 Hypochromasia Not Reportable 08/01/19 06:26 Poikilocytosis Not Reportable 08/01/19 06:26 Anisocytosis 1+ 08/01/19 06:26 Microcytosis Not Reportable 08/01/19 06:26 Macrocytosis Not Reportable 08/01/19 06:26 Spherocytes Not Reportable 08/01/19 06:26 Pappenheimer Bodies Not Reportable 08/01/19 06:26 Sickle Cells Not Reportable 08/01/19 06:26 Target Cells Not Reportable 08/01/19 06:26 Tear Drop Cells Not Reportable 08/01/19 06:26 Ovalocytes Not Reportable 08/01/19 06:26 Helmet Cells Not Reportable 08/01/19 06:26 Rao-Iliam[place] Bodies Not Reportable 08/01/19 06:26 [place] Rings Not Reportable 08/01/19 06:26 [place] Cells Not Reportable 08/01/19 06:26 Bite Cells Not Reportable 08/01/19 06:26 Crenated Cell Not Reportable 08/01/19 06:26 Elliptocytes Not Reportable 08/01/19 06:26 Acanthocytes (Spur) Not Reportable 08/01/19 06:26 Rouleaux Not Reportable 08/01/19 06:26 Hemoglobin C Crystals Not Reportable 08/01/19 06:26 Schistocytes Not Reportable 08/01/19 06:26 Malaria parasites Not Reportable 08/01/19 06:26 Shahriar Bodies Not Reportable 08/01/19 06:26 Hem Pathologist Commnt No 08/01/19 06:26 PT 16.1 Sec. (12.2-14.9) H 08/02/19 13:19 INR 1.31 (0.87-1.13) H 08/02/19 13:19 Sodium 140 mmol/L (137-145) 08/01/19 06:26 Potassium 4.5 mmol/L (3.6-5.0) 08/01/19 06:26 Chloride 98.5 mmol/L (98-107) 08/01/19 06:26 Carbon Dioxide 14 mmol/L (22-30) L 08/01/19 06:26 Anion Gap 32 mmol/L 08/01/19 06:26 BUN 106 mg/dL (9-20) H 08/01/19 06:26 Creatinine 9.4 mg/dL (0.8-1.5) H 08/01/19 06:26 Estimated GFR 7 ml/min 08/01/19 06:26 BUN/Creatinine Ratio 11 % 08/01/19 06:26 Glucose 83 mg/dL (75-100) 08/01/19 06:26 POC Glucose 83 (70-105) 08/03/19 12:40 Calcium 8.9 mg/dL (8.4-10.2) 08/01/19 06:26 Total Bilirubin 0.30 mg/dL (0.1-1.2) 08/01/19 06:26 AST 17 units/L (5-40) 08/01/19 06:26 ALT 26 units/L (7-56) 08/01/19 06:26 Alkaline Phosphatase 97 units/L (35-129) 08/01/19 06:26 Total Protein 6.9 g/dL (6.3-8.2) 08/01/19 06:26 Albumin 3.1 g/dL (3.9-5) L 08/01/19 06:26 Albumin/Globulin Ratio 0.8 % 08/01/19 06:26 Hepatitis A IgM Ab Non-reactive (NonReactive) 08/01/19 15:26 Hep Bs Antigen Non-reactive (Negative) 08/01/19 15:26 Hep B Core IgM Ab Non-reactive (NonReactive) 08/01/19 15:26 Hepatitis C Antibody Non-reactive (NonReactive) 08/01/19 15:26 Group A Strep Rapid Negative (Negative) 07/31/19 22:45 Active Medications - Current Medications Current Medications: Generic Name Dose Route Start Last Admin Trade Name Freq PRN Reason Stop Dose Admin Acyclovir 1 applic 08/02/19 14:00 08/03/19 10:29 Acyclovir TP 1 applic 5XD JOSEFINA Administration Dextrose 50 ml 07/31/19 17:13 D50w (25gm) Syringe IV Q30MIN PRN HYPOGLYCEMIA Protocol Enoxaparin Sodium 30 mg 08/01/19 10:00 08/03/19 10:29 Enoxaparin SUB-Q 30 mg QDAY JOSEFINA Administration Epoetin Jose 4,000 unit 08/01/19 11:55 Procrit IV EDITH PRN hemodialysis Sodium Chloride 100 mls @ 999 mls/hr 08/01/19 11:54 Nacl 0.9% IV EDITH PRN Hypotension Ondansetron HCl 4 mg 08/03/19 04:23 08/03/19 05:55 Zofran IV 4 mg Q6H PRN Administration Nausea And Vomiting Sodium Chloride 10 ml 07/31/19 22:00 08/03/19 10:29 Sodium Chloride Flush Syringe 10 Ml IV 10 ml BID JOSEFINA Administration Sodium Chloride 10 ml 07/31/19 17:11 Sodium Chloride Flush Syringe 10 Ml IV PRN PRN LINE FLUSH Valacyclovir HCl 500 mg 08/01/19 15:00 08/03/19 10:29 Valtrex PO 500 mg QDAY JOSEFINA Administration Nutrition/Malnutrition Assess - Dietary Evaluation Nutrition/Malnutrition Findings: Nutrition Notes Start: 08/01/19 10:06 Freq: Status: Active Protocol: Document 08/02/19 10:31 GABRIEL (Rec: 08/02/19 11:18 GABRIEL [id number]) Co-Sign 08/02/19 10:31 LP Nutrition Notes Initial or Follow up Reassessment Current Diagnosis CKD (stage V CKD) Other Pertinent Diagnosis ESRD on HD, ARF, SIRS, perioral dermatitis Current Diet Renal Labs/Tests BUN 106 Cr 9.4 Pertinent Medications Reviewed Height 5 ft 6 in Weight 121.4 kg Bimble Body Weight (kg) 64.54 BMI 43.2 Weight Status Morbidly Obese Subjective/Other Information F/U for PO and ONS intakes. Pt was on airborne precautions. Called nurse and she stated that he had eaten about 25% of breakfast and hasn't drank the nepro yet. Percent of energy/protein needs met: 26%/18% Burn Absent Trauma Absent Minimum of two criteria No physical signs of malnutrition #1 Nutrition Diagnosis Inadequate oral intake Diagnosis Progress(for reassessment Continues documentation) Is patient on ventilator? No Is Patient Ambulatory and/or Out of Bed Yes REE-(Harlan-St. Jeor-ambulatory/OOB) [ 2595.775 NUTR.[id number]] Kcal/Kg value to use for calculation 17 Approximate Energy Requirements Using 2063 kcal/Kg Calculation Used for Recommendations Kcal/kg Additional Notes PRO needs: >110g/day(>1.2g/kg/ AdBW 92kg) Fluid neds: 1-1.5L/day or per MD Nutrition Intervention Change Diet Order: Continue renal diet Add Supplement/Snack (indicate name/kcal Nepro once a day /protein ) Provides kCal: 425 Provides Protein (gm) 19 Goal #1 Pt meet >80% of kcal/PRO needs via PO and ONS. Goal #2 Wound healing Follow-Up By: 08/06/19 Additional Comments F/U for PO/ONS intakes. - Malnutrition Assessment Minimum of two criteria: Yes - Attestation Statement I have reviewed and agreed w/ Malnutrition eval & tx plan: Yes
[2019-08-03] MEDS: MORPHINE 2 MG/1 ML INJ IV PRN (18:53)
--- NOTE | 2019-08-03 20:53 | Consultation ---
History of Present Illness - Reason for Consult Consult date: 08/03/19 Reason for consult: psychiatric evaluation - Chief Complaint Chief complaint: "I woke up in another state." - History of Present Psychiatric Illness 54 year old male seen for psychiatric evaluation on the medical floor. He talked about how he passed out and woke up in ICU, was then transferred to [place], and now is back but has sores in his mouth. He says he was paranoid and thought people were trying to kill him with chemical warfare. 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 He denies being treated for mental illness. He says he has the same mental health concerns as anyone who grows up in poverty. "I don't have perfect mental health." He reports crying often and did not realize how much he meant to his family. He says he does not usually cry. He has supportive family. He denies taking psychotropic meds currently or in the past. He denies SI/HI/AVH. He denies illicit substance abuse or alcohol use. He denies ester. He acknowledges recent paranoid delusions but considering he is able to rationalize the situation, it appears he is improving. Medications and Allergies Allergies Allergy/AdvReac Type Severity Reaction Status Date / Time No Known Allergies Allergy Unverified 07/23/19 01:49 Home Medications Medication Instructions Recorded Confirmed Last Taken Type Dextrose 50% in Water [D50W (25GM) 50 ml IV Q30MIN PRN syringe 07/23/19 08/01/19 Unknown Rx Syringe] Enoxaparin 30 mg SUB-Q QDAY syringe 07/23/19 08/01/19 Unknown Rx Midazolam 100 mg IV TITR vial 07/23/19 08/01/19 Unknown Rx Oseltamivir Phosphate [Tamiflu] 30 mg PO DAILY oralsyr 07/23/19 08/01/19 Unknown Rx Phenylephrine 100 mg IV TITR vial 07/23/19 08/01/19 Unknown Rx Sodium Bicarbonate 150 meq IV DIRECT vial 07/23/19 08/01/19 Unknown Rx Sodium Bicarbonate [SODIUM 50 meq IV ONCE PRN syringe 07/23/19 08/01/19 Unknown Rx BICARBONATE 50mEq Syringe] Sodium Chloride 0.9% Int [Sodium 10 ml IV BID syringe 07/23/19 08/01/19 Unknown Rx Chloride Flush Syringe 10 ml] Sodium Chloride 0.9% [NaCl 0.9% 100 ml IV TITR bag 07/23/19 08/01/19 Unknown Rx 100 ML] Vasopressin [Vasostrict] 20 unit IV DIRECT vial 07/23/19 08/01/19 Unknown Rx Aspirin [Aspirin BABY CHEW TAB] 81 mg PO QDAY 08/01/19 08/01/19 Unknown History AtorvaSTATin [Lipitor] 40 mg PO QHS 08/01/19 08/01/19 Unknown History Epoetin Jose 10,000 Unit [Procrit] 10,000 unit SQ Q2W 08/01/19 08/01/19 Unknown History Hydralazine HCl 50 mg PO TID 08/01/19 08/01/19 Unknown History NIFEdipine [Nifedipine ER] 30 mg PO Q12HR 08/01/19 08/01/19 Unknown History Active Meds: Active Medications Acyclovir (Acyclovir) 1 applic TP 5XD [facility] Last Admin: 08/03/19 17:36 Dose: 1 applic Documented by: Dextrose (D50w (25gm) Syringe) 50 ml IV Q30MIN PRN; Protocol PRN Reason: HYPOGLYCEMIA Enoxaparin Sodium (Enoxaparin) 30 mg SUB-Q QDAY [facility] Last Admin: 08/03/19 10:29 Dose: 30 mg Documented by: Epoetin Jose (Procrit) 4,000 unit IV EDITH PRN PRN Reason: hemodialysis Sodium Chloride (Nacl 0.9%) 100 mls @ 999 mls/hr IV EDITH PRN PRN Reason: Hypotension Morphine Sulfate (Morphine) 2 mg IV Q4H PRN PRN Reason: Pain, Moderate (4-6) Last Admin: 08/03/19 18:53 Dose: 2 mg Documented by: Ondansetron HCl (Zofran) 4 mg IV Q6H PRN PRN Reason: Nausea And Vomiting Last Admin: 08/03/19 05:55 Dose: 4 mg Documented by: Sodium Chloride (Sodium Chloride Flush Syringe 10 Ml) 10 ml IV BID [facility] Last Admin: 08/03/19 10:29 Dose: 10 ml Documented by: Sodium Chloride (Sodium Chloride Flush Syringe 10 Ml) 10 ml IV PRN PRN PRN Reason: LINE FLUSH Valacyclovir HCl (Valtrex) 500 mg PO QDAY [facility] Last Admin: 08/03/19 10:29 Dose: 500 mg Documented by: Past psychiatric history - Past Medical History Past Medical History: dialysis, ESRD - Social History 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) Mental Status Exam - Vital signs Last Vital Signs Temp 97.0 F L 08/03/19 16:26 Pulse 85 08/03/19 16:26 Resp 18 08/03/19 16:26 BP 117/50 08/03/19 16:26 Pulse Ox 96 08/03/19 16:26 - Exam Orientation: time, place, person Affect: other (intermittently tearful) Mood: appropriate Thought content: paranoia (resolving) Thought Process: Intact Perceptions: none Speech: normal rate and pattern Concentration: focused Motor activity: normal Level of consciousness: alert Memory: Intact Interaction: cooperative Mini mental status exam(if necessary): 24-30 Results Result Diagrams: 08/01/19 06:26 08/01/19 06:26 All other labs normal. Assessment and Plan Assessment and plan: Impression: encephalopathy secondary to medical causes He acknowledges recent paranoid delusions but considering he is able to rationalize the situation, it appears he is improving. Recommendations: no meds indicated at this time dispo: per medical. reassess to see if delirium continues to improve staffed with Dr. Paige
[2019-08-04] MEDS: ACYCLOVIR TP SCH ×5 (05:53→21:41)
[2019-08-04] MEDS: ENOXAPARIN 30 MG/0.3 ML INJ SUB-Q SCH (11:20)
[2019-08-04] MEDS: valACYclovir 500 MG TAB PO SCH (11:21)
--- NOTE | 2019-08-04 12:17 | Progress Note ---
Assessment and Plan Impression * End-stage renal disease on maintenance hemodialysis * Respiratory failure * Secondary hyperparathyroidism * Hypertension * Anemia * Ulcerated lesions in the lips Recommendations * Patient is status post uneventful hemodialysis on Monday * Continue dialysis on MWF schedule * Patient states that he is currently on home hemodialysis. However he wishes to transition to [facility] . He is current being under the care of Dr. Maria G Deleon . Patient advised to call his home nurse Monday morning and tried to get him set up to his previous [facility] dialysis. * Continue Procrit with dialysis * Continue binders and vitamin D analogs * ID consult appreciated * Patient is clinically out of CHF Subjective Date of service: 08/04/19 Principal diagnosis: shortness of breath Interval history: Patient is comfortable this morning. Denies any shortness of breath. No nausea or vomiting. Objective - Vital Signs Vital signs: Vital Signs - 12hr 08/04/19 05:08 Temperature 97.6 F Pulse Rate 86 Respiratory 18 Rate Blood Pressure 172/55 O2 Sat by Pulse 97 Oximetry - General Appearance General appearance: well-developed, well-nourished, appears stated age EENT: PERRL, mucous membranes moist, other (crusted lesions noted in his lips) Neck: no JVD, no thyromegaly, no carotid bruit, supple Respiratory: Present: Clear to Ascultation Cardiology: regular, normal heart rate, S1S2, no murmurs Gastrointestinal: normal, normoactive bowel sounds Integumentary: other (no edema. AV graft left upper arm. Good bruit and thrill.) - Lab 08/01/19 06:26 08/01/19 06:26 Most recent lab results Calcium 8.9 mg/dL (8.4-10.2) 08/01/19 06:26 Medications & Allergies - Medications Allergies/Adverse Reactions: Allergies No Known Allergies Allergy (Unverified 07/23/19 01:49) Home Medications: Home Medications Medication Instructions Recorded Confirmed Last Taken Type Dextrose 50% in Water [D50W (25GM) 50 ml IV Q30MIN PRN syringe 07/23/19 08/01/19 Unknown Rx Syringe] Enoxaparin 30 mg SUB-Q QDAY syringe 07/23/19 08/01/19 Unknown Rx Midazolam 100 mg IV TITR vial 07/23/19 08/01/19 Unknown Rx Oseltamivir Phosphate [Tamiflu] 30 mg PO DAILY oralsyr 07/23/19 08/01/19 Unknown Rx Phenylephrine 100 mg IV TITR vial 07/23/19 08/01/19 Unknown Rx Sodium Bicarbonate 150 meq IV DIRECT vial 07/23/19 08/01/19 Unknown Rx Sodium Bicarbonate [SODIUM 50 meq IV ONCE PRN syringe 07/23/19 08/01/19 Unknown Rx BICARBONATE 50mEq Syringe] Sodium Chloride 0.9% Int [Sodium 10 ml IV BID syringe 07/23/19 08/01/19 Unknown Rx Chloride Flush Syringe 10 ml] Sodium Chloride 0.9% [NaCl 0.9% 100 ml IV TITR bag 07/23/19 08/01/19 Unknown Rx 100 ML] Vasopressin [Vasostrict] 20 unit IV DIRECT vial 07/23/19 08/01/19 Unknown Rx Aspirin [Aspirin BABY CHEW TAB] 81 mg PO QDAY 08/01/19 08/01/19 Unknown History AtorvaSTATin [Lipitor] 40 mg PO QHS 08/01/19 08/01/19 Unknown History Epoetin Jose 10,000 Unit [Procrit] 10,000 unit SQ Q2W 08/01/19 08/01/19 Unknown History Hydralazine HCl 50 mg PO TID 08/01/19 08/01/19 Unknown History NIFEdipine [Nifedipine ER] 30 mg PO Q12HR 08/01/19 08/01/19 Unknown History Active Medications: Generic Name Dose Route Start Last Admin Trade Name Freq PRN Reason Stop Dose Admin Acyclovir 1 applic 08/02/19 14:00 08/04/19 11:21 Acyclovir TP 1 applic 5XD JOSEFINA Administration Dextrose 50 ml 07/31/19 17:13 D50w (25gm) Syringe IV Q30MIN PRN HYPOGLYCEMIA Protocol Enoxaparin Sodium 30 mg 08/01/19 10:00 08/04/19 11:20 Enoxaparin SUB-Q 30 mg QDAY JOSEFINA Administration Epoetin Jose 4,000 unit 08/01/19 11:55 Procrit IV EDITH PRN hemodialysis Sodium Chloride 100 mls @ 999 mls/hr 08/01/19 11:54 Nacl 0.9% IV EDITH PRN Hypotension Morphine Sulfate 2 mg 08/03/19 15:11 08/03/19 18:53 Morphine IV 2 mg Q4H PRN Administration Pain, Moderate (4-6) Ondansetron HCl 4 mg 08/03/19 04:23 08/03/19 05:55 Zofran IV 4 mg Q6H PRN Administration Nausea And Vomiting Sodium Chloride 10 ml 07/31/19 22:00 08/04/19 11:21 Sodium Chloride Flush Syringe 10 Ml IV 10 ml BID JOSEFINA Administration Sodium Chloride 10 ml 07/31/19 17:11 Sodium Chloride Flush Syringe 10 Ml IV PRN PRN LINE FLUSH Valacyclovir HCl 500 mg 08/01/19 15:00 08/04/19 11:21 Valtrex PO 500 mg QDAY JOSEFINA Administration
--- NOTE | 2019-08-04 13:00 | Progress Note ---
Assessment and Plan - Patient Problems (1) Metabolic encephalopathy Current Visit: Yes Status: Acute Plan to address problem: Patient currently being worked up for metabolic encephalopathy not at baseline. Initial workup negative. Lumbar puncture planned for Monday. Patient also has hemodialysis Monday and also has a discharge home per Monday as well. (2) Perioral dermatitis Current Visit: Yes Status: Acute Plan to address problem: Patient. Old dermatitis appears to be scabbing and improving. It was extensive. Patient takes acyclovir. Morphine does help patient's pain. (3) Acute respiratory failure with hypoxia Current Visit: No Status: Acute Plan to address problem: Recommended to air embolism has resolved. Shortness of breath resolved much better. Stable for transfer. (4) ESRD (end stage renal disease) Current Visit: No Status: Acute Plan to address problem: Patient scheduled for hemodialysis on Monday. Discharged to facility after hemodialysis. Plan is to be discharged after hemodialysis in the a.m. (5) SIRS (systemic inflammatory response syndrome) Current Visit: No Status: Acute Plan to address problem: Resolving. Afebrile more alert. Still has leukocytosis. Could be secondary to perioral dermatitis History Interval history: Patient states he feels better today. Patient states his difficult for him to eat because of sores around his mouth. Patient still weak but states he feels stronger than yesterday. Patient still seems somewhat encephalopathic and not quite back to baseline as far as my discussion with family member at the bedside. Hospitalist Physical - Constitutional Vitals: Temp Pulse Resp BP Pulse Ox 97.6 F 86 18 172/55 97 08/04/19 05:08 08/04/19 05:08 08/04/19 05:08 08/04/19 05:08 08/04/19 05:08 General appearance: Present: mild distress - EENT Eyes: Present: PERRL, EOM intact ENT: hearing intact, clear oral mucosa, dentition normal, other (extensive. Oral lesions scabbing looked improved.) - Neck Neck: Present: supple, normal ROM - Respiratory Respiratory: bilateral: CTA - Cardiovascular Rhythm: regular Heart Sounds: Present: S1 & S2 - Extremities Extremities: no ischemia, pulses intact, pulses symmetrical, No edema Peripheral Pulses: within normal limits - Abdominal General gastrointestinal: soft, non-tender, non-distended, normal bowel sounds, other (obese) - Integumentary Integumentary: Present: clear, warm, dry - Psychiatric Psychiatric: other (mood is appropriate. Patient still appears to have mild cognitive abnormality.) - Neurologic Neurologic: CNII-XII intact, moves all extremities Results - Labs CBC & Chem 7: 08/01/19 06:26 08/01/19 06:26 Labs: Laboratory Last Values WBC 16.6 K/mm3 (4.5-11.0) H 08/01/19 06:26 RBC 3.00 M/mm3 (3.65-5.03) L 08/01/19 06:26 Hgb 8.6 gm/dl (11.8-15.2) L 08/01/19 06:26 Hct 26.8 % (35.5-45.6) L 08/01/19 06:26 MCV 89 fl (84-94) 08/01/19 06:26 MCH 29 pg (28-32) 08/01/19 06:26 MCHC 32 % (32-34) 08/01/19 06:26 RDW 14.1 % (13.2-15.2) 08/01/19 06:26 Plt Count 236 K/mm3 (140-440) 08/01/19 06:26 Add Manual Diff Complete 08/01/19 06:26 Total Counted 100 08/01/19 06:26 Seg Neuts % (Manual) 82.0 % (40.0-70.0) H 08/01/19 06:26 Band Neutrophils % 2.0 % 08/01/19 06:26 Lymphocytes % (Manual) 7.0 % (13.4-35.0) L 08/01/19 06:26 Reactive Lymphs % (Man) 0 % 08/01/19 06:26 Monocytes % (Manual) 7.0 % (0.0-7.3) 08/01/19 06:26 Eosinophils % (Manual) 0 % (0.0-4.3) 08/01/19 06:26 Basophils % (Manual) 1.0 % (0.0-1.8) 08/01/19 06:26 Metamyelocytes % 1.0 % 08/01/19 06:26 Myelocytes % 0 % 08/01/19 06:26 Promyelocytes % 0 % 08/01/19 06:26 Blast Cells % 0 % 08/01/19 06:26 Nucleated RBC % Not Reportable 08/01/19 06:26 Seg Neutrophils # Man 13.6 K/mm3 (1.8-7.7) H 08/01/19 06:26 Band Neutrophils # 0.3 K/mm3 08/01/19 06:26 Lymphocytes # (Manual) 1.2 K/mm3 (1.2-5.4) 08/01/19 06:26 Abs React Lymphs (Man) 0.0 K/mm3 08/01/19 06:26 Monocytes # (Manual) 1.2 K/mm3 (0.0-0.8) H 08/01/19 06:26 Eosinophils # (Manual) 0.0 K/mm3 (0.0-0.4) 08/01/19 06:26 Basophils # (Manual) 0.2 K/mm3 (0.0-0.1) H 08/01/19 06:26 Metamyelocytes # 0.2 K/mm3 08/01/19 06:26 Myelocytes # 0.0 K/mm3 08/01/19 06:26 Promyelocytes # 0.0 K/mm3 08/01/19 06:26 Blast Cells # 0.0 K/mm3 08/01/19 06:26 WBC Morphology Not Reportable 08/01/19 06:26 Hypersegmented Neuts Not Reportable 08/01/19 06:26 Hyposegmented Neuts Not Reportable 08/01/19 06:26 Hypogranular Neuts Not Reportable 08/01/19 06:26 Smudge Cells Not Reportable 08/01/19 06:26 Toxic Granulation Not Reportable 08/01/19 06:26 Toxic Vacuolation Not Reportable 08/01/19 06:26 Dohle Bodies Not Reportable 08/01/19 06:26 Pelger-Huet Anomaly Not Reportable 08/01/19 06:26 Mago Rods Not Reportable 08/01/19 06:26 Platelet Estimate Consistent w auto 08/01/19 06:26 Clumped Platelets Not Reportable 08/01/19 06:26 Plt Clumps, EDTA Not Reportable 08/01/19 06:26 Large Platelets Few 08/01/19 06:26 Giant Platelets Not Reportable 08/01/19 06:26 Platelet Satelliting Not Reportable 08/01/19 06:26 Plt Morphology Comment Not Reportable 08/01/19 06:26 RBC Morphology Not Reportable 08/01/19 06:26 Dimorphic RBCs Not Reportable 08/01/19 06:26 Polychromasia Not Reportable 08/01/19 06:26 Hypochromasia Not Reportable 08/01/19 06:26 Poikilocytosis Not Reportable 08/01/19 06:26 Anisocytosis 1+ 08/01/19 06:26 Microcytosis Not Reportable 08/01/19 06:26 Macrocytosis Not Reportable 08/01/19 06:26 Spherocytes Not Reportable 08/01/19 06:26 Pappenheimer Bodies Not Reportable 08/01/19 06:26 Sickle Cells Not Reportable 08/01/19 06:26 Target Cells Not Reportable 08/01/19 06:26 Tear Drop Cells Not Reportable 08/01/19 06:26 Ovalocytes Not Reportable 08/01/19 06:26 Helmet Cells Not Reportable 08/01/19 06:26 Rao-[place] Bodies Not Reportable 08/01/19 06:26 [place] Rings Not Reportable 08/01/19 06:26 Noemi Cells Not Reportable 08/01/19 06:26 Bite Cells Not Reportable 08/01/19 06:26 Crenated Cell Not Reportable 08/01/19 06:26 Elliptocytes Not Reportable 08/01/19 06:26 Acanthocytes (Spur) Not Reportable 08/01/19 06:26 Rouleaux Not Reportable 08/01/19 06:26 Hemoglobin C Crystals Not Reportable 08/01/19 06:26 Schistocytes Not Reportable 08/01/19 06:26 Malaria parasites Not Reportable 08/01/19 06:26 Shahriar Bodies Not Reportable 08/01/19 06:26 Hem Pathologist Commnt No 08/01/19 06:26 PT 16.1 Sec. (12.2-14.9) H 08/02/19 13:19 INR 1.31 (0.87-1.13) H 08/02/19 13:19 Sodium 140 mmol/L (137-145) 08/01/19 06:26 Potassium 4.5 mmol/L (3.6-5.0) 08/01/19 06:26 Chloride 98.5 mmol/L (98-107) 08/01/19 06:26 Carbon Dioxide 14 mmol/L (22-30) L 08/01/19 06:26 Anion Gap 32 mmol/L 08/01/19 06:26 BUN 106 mg/dL (9-20) H 08/01/19 06:26 Creatinine 9.4 mg/dL (0.8-1.5) H 08/01/19 06:26 Estimated GFR 7 ml/min 08/01/19 06:26 BUN/Creatinine Ratio 11 % 08/01/19 06:26 Glucose 83 mg/dL (75-100) 08/01/19 06:26 POC Glucose 83 (70-105) 08/03/19 12:40 Calcium 8.9 mg/dL (8.4-10.2) 08/01/19 06:26 Total Bilirubin 0.30 mg/dL (0.1-1.2) 08/01/19 06:26 AST 17 units/L (5-40) 08/01/19 06:26 ALT 26 units/L (7-56) 08/01/19 06:26 Alkaline Phosphatase 97 units/L (35-129) 08/01/19 06:26 Total Protein 6.9 g/dL (6.3-8.2) 08/01/19 06:26 Albumin 3.1 g/dL (3.9-5) L 08/01/19 06:26 Albumin/Globulin Ratio 0.8 % 08/01/19 06:26 Hepatitis A IgM Ab Non-reactive (NonReactive) 08/01/19 15:26 Hep Bs Antigen Non-reactive (Negative) 08/01/19 15:26 Hep B Core IgM Ab Non-reactive (NonReactive) 08/01/19 15:26 Hepatitis C Antibody Non-reactive (NonReactive) 08/01/19 15:26 Group A Strep Rapid Negative (Negative) 07/31/19 22:45 Active Medications - Current Medications Current Medications: Generic Name Dose Route Start Last Admin Trade Name Freq PRN Reason Stop Dose Admin Acyclovir 1 applic 08/02/19 14:00 08/04/19 11:21 Acyclovir TP 1 applic 5XD JOSEFINA Administration Dextrose 50 ml 07/31/19 17:13 D50w (25gm) Syringe IV Q30MIN PRN HYPOGLYCEMIA Protocol Enoxaparin Sodium 30 mg 08/01/19 10:00 08/04/19 11:20 Enoxaparin SUB-Q 30 mg QDAY JOSEFINA Administration Epoetin Jose 4,000 unit 08/01/19 11:55 Procrit IV EDITH PRN hemodialysis Sodium Chloride 100 mls @ 999 mls/hr 08/01/19 11:54 Nacl 0.9% IV EDITH PRN Hypotension Morphine Sulfate 2 mg 08/03/19 15:11 08/03/19 18:53 Morphine IV 2 mg Q4H PRN Administration Pain, Moderate (4-6) Ondansetron HCl 4 mg 08/03/19 04:23 08/03/19 05:55 Zofran IV 4 mg Q6H PRN Administration Nausea And Vomiting Sodium Chloride 10 ml 07/31/19 22:00 08/04/19 11:21 Sodium Chloride Flush Syringe 10 Ml IV 10 ml BID JOSEFINA Administration Sodium Chloride 10 ml 07/31/19 17:11 Sodium Chloride Flush Syringe 10 Ml IV PRN PRN LINE FLUSH Valacyclovir HCl 500 mg 08/01/19 15:00 08/04/19 11:21 Valtrex PO 500 mg QDAY JOSEFINA Administration Nutrition/Malnutrition Assess - Dietary Evaluation Nutrition/Malnutrition Findings: Nutrition Notes Start: 08/01/19 10:06 Freq: Status: Active Protocol: Document 08/02/19 10:31 GABRIEL (Rec: 08/02/19 11:18 GABRIEL [id number]) Co-Sign 08/02/19 10:31 LP Nutrition Notes Initial or Follow up Reassessment Current Diagnosis CKD (stage V CKD) Other Pertinent Diagnosis ESRD on HD, ARF, SIRS, perioral dermatitis Current Diet Renal Labs/Tests BUN 106 Cr 9.4 Pertinent Medications Reviewed Height 5 ft 6 in Weight 121.4 kg [place] Body Weight (kg) 64.54 BMI 43.2 Weight Status Morbidly Obese Subjective/Other Information F/U for PO and ONS intakes. Pt was on airborne precautions. Called nurse and she stated that he had eaten about 25% of breakfast and hasn't drank the nepro yet. Percent of energy/protein needs met: 26%/18% Burn Absent Trauma Absent Minimum of two criteria No physical signs of malnutrition #1 Nutrition Diagnosis Inadequate oral intake Diagnosis Progress(for reassessment Continues documentation) Is patient on ventilator? No Is Patient Ambulatory and/or Out of Bed Yes REE-([place]-St. Jeor-ambulatory/OOB) [ 2595.775 NUTR.MSJOOB] Kcal/Kg value to use for calculation 17 Approximate Energy Requirements Using 2063 kcal/Kg Calculation Used for Recommendations Kcal/kg Additional Notes PRO needs: >110g/day(>1.2g/kg/ AdBW 92kg) Fluid neds: 1-1.5L/day or per MD Nutrition Intervention Change Diet Order: Continue renal diet Add Supplement/Snack (indicate name/kcal Nepro once a day /protein ) Provides kCal: 425 Provides Protein (gm) 19 Goal #1 Pt meet >80% of kcal/PRO needs via PO and ONS. Goal #2 Wound healing Follow-Up By: 08/06/19 Additional Comments F/U for PO/ONS intakes.
[2019-08-04] MEDS: MORPHINE 2 MG/1 ML INJ IV PRN ×2 (19:02→23:59)
--- NOTE | 2019-08-04 20:37 | Progress Note ---
Subjective - Reason for Consult Consult date: 08/04/19 Reason for consult: follow up - Chief Complaint Chief complaint: "I woke up in another state." 54 year old male seen for psychiatric evaluation on the medical floor. He talked about how he passed out and woke up in ICU, was then transferred to [place], and now is back but has sores in his mouth. He says he was paranoid and thought people were trying to kill him with chemical warfare. He says, "I'm a conspiracy nut to begin with." He does not exhibit paranoia. He has questionable grandiosity and talks about how he does not need money and gives it to his niece. Thought process is circumstantial but logical. Mental Status Exam - Exam Orientation: time, place, person Affect: other (intermittently tearful) Mood: appropriate Thought content: possible grandiosity. baseline unknown Thought Process: circumstantial Perceptions: none Speech: normal rate and pattern Concentration: focused Motor activity: normal Level of consciousness: alert Memory: Intact Interaction: cooperative Mini mental status exam(if necessary): 24-30 Mental Status Exam - Vital signs Last Vital Signs Temp 98.5 F 08/04/19 17:06 Pulse 86 08/04/19 17:06 Resp 24 08/04/19 17:06 BP 102/51 08/04/19 17:06 Pulse Ox 94 08/04/19 17:06 Assessment and Plan Impression: encephalopathy secondary to medical causes He acknowledges recent paranoid delusions but considering he is able to rationalize the situation, it appears he is improving. monitor for psychosis ddx-bipolar Recommendations: no meds indicated at this time dispo: per medical. reassess to see if delirium continues to improve staffed with Dr. Paige
[2019-08-05] MEDS: ACYCLOVIR TP SCH ×5 (06:34→21:38)
[2019-08-05 09:21] LABS: Basophils # (Auto) 0.1 K/mm3 (0.0-0.1); Basophils % (Auto) 1.3 % (0.0-1.8); Eosinophils # (Auto) 0.2 K/mm3 (0.0-0.4); Hematocrit 24.6 % (35.5-45.6); Hemoglobin 8.2 gm/dl (11.8-15.2); Lymphocytes # (Auto) 2.7 K/mm3 (1.2-5.4); Lymphocytes % (Auto) 24.7 % (13.4-35.0); Mean Corpuscular HGB Conc 33 % (32-34); Mean Corpuscular Volume 89 fl (84-94); Monocytes % (Auto) 9.1 % (0.0-7.3); Platelet Count 410 K/mm3 (140-440); Red Blood Count 2.78 M/mm3 (3.65-5.03)
[2019-08-05 09:37] LABS: INR 1.29 (0.87-1.13)
[2019-08-05 09:38] LABS: Calcium 9.4 mg/dL (8.4-10.2)
[2019-08-05] MEDS ORDERED: LIDOCAINE (1%) 10 MG/1 ML VIAL 20 ML MDV ONE (10:16)
[2019-08-05] MEDS: ENOXAPARIN 30 MG/0.3 ML INJ SUB-Q SCH (10:16)
[2019-08-05] MEDS: valACYclovir 500 MG TAB PO SCH (12:27)
[2019-08-05] MEDS: MORPHINE 2 MG/1 ML INJ IV PRN ×2 (13:19→20:21)
--- NOTE | 2019-08-05 15:17 | Progress Note ---
Assessment and Plan Assessment and plan: 54 YO Male with ESRD on HD readmitted to ICU for Acute Respiratory Failure Suspected secondary to Air Embolism. Pt discharged from ICU and transferred to [facility], in [place], [place]. Pt transferred to [facility]. Pt admitted to ICU. Pt seen and evaluated in his room upon arrival. Pt denies fever, chills, CP, Palpitations, NVD, Trauma, or recent ill contacts. Pt acknowledges painful blisters around his mouth. Nephrology consulted upon arrival. Pulmonary team consulted upon arrival. * Hyperbaric treatment was not done * Rehab recommended but patient and Niece declines * Patient does not alert anyone that he has stooled on himself, he also has been acting strange, sometimes today noted to walk into puddle of water * Await HSV study positive. * Mental status improved. Not sure what utility at this time a LP will yield, * Awaiting Placement - Patient Problems (1) Metabolic encephalopathy Current Visit: Yes Status: Acute Plan to address problem: Patient currently being worked up for metabolic encephalopathy now at baseline. Initial workup negative. Lumbar puncture planned for Monday but patient refused, will try tomorrow, although at this time, I am not sure what the utility will show considering patient on Medication. Patient also has hemod ialysis Monday and also has a discharge home per Monday as well. (2) Perioral dermatitis Current Visit: Yes Status: Acute Plan to address problem: Patient. Old dermatitis appears to be scabbing and improving. It was extensive. Patient takes acyclovir. Morphine does help patient's pain. (3) Acute respiratory failure with hypoxia Current Visit: No Status: Acute Plan to address problem: Recommended to air embolism has resolved. Shortness of breath resolved much better. Stable for transfer. (4) ESRD (end stage renal disease) Current Visit: No Status: Acute Plan to address problem: Patient scheduled for hemodialysis on Monday. Discharged to facility after hemodialysis. Plan is to be discharged after hemodialysis in the a.m. (5) SIRS (systemic inflammatory response syndrome) Current Visit: No Status: Acute Plan to address problem: Resolving. Afebrile more alert. Could be secondary to perioral dermatitis Discharge Once Auth approved. . History Interval history: Patient seen and examined, in dialysis today, Refused lumber puncture, although mental status now improved. Hospitalist Physical - Physical exam Narrative exam: Constitutional: Alert, cooperative. No acute distress Head, Ears, Nose: Normocephalic, atraumatic. External ears, nose normal. Neck: Supple, no meningeal signs Oral: hemorrhagic lesions involving upper and lower lip improved, with no oral mucosa involvement, few papular lesions laterally on the left side, tender Cardiovascular: S1, S2 normal. Respiratory: Good air entry, clear to auscultation bilaterally GI: Soft, non-tender; bowel sounds normal. No peritoneal signs. Musculoskeletal: No pedal edema, no cyanosis. Left AVG + Skin: No rash or abscess Hem/Lymphatic: No palpable cervical or supraclavicular nodes. No lymphangitis Neurological: Awake, alert, oriented x2 but poor judgment. No gross abnormality - Constitutional Vitals: Temp Pulse Resp BP Pulse Ox 97.9 F 88 18 108/51 94 08/05/19 04:46 08/05/19 14:45 08/05/19 04:46 08/05/19 14:45 08/05/19 04:46 General appearance: Present: mild distress Results - Labs CBC & Chem 7: 08/05/19 08:53 08/05/19 08:53 Labs: Laboratory Last Values WBC 11.0 K/mm3 (4.5-11.0) 08/05/19 08:53 RBC 2.78 M/mm3 (3.65-5.03) L 08/05/19 08:53 Hgb 8.2 gm/dl (11.8-15.2) L 08/05/19 08:53 Hct 24.6 % (35.5-45.6) L 08/05/19 08:53 MCV 89 fl (84-94) 08/05/19 08:53 MCH 30 pg (28-32) 08/05/19 08:53 MCHC 33 % (32-34) 08/05/19 08:53 RDW 14.0 % (13.2-15.2) 08/05/19 08:53 Plt Count 410 K/mm3 (140-440) 08/05/19 08:53 Lymph % (Auto) 24.7 % (13.4-35.0) 08/05/19 08:53 [place]att % (Auto) 9.1 % (0.0-7.3) H 08/05/19 08:53 Eos % (Auto) 2.0 % (0.0-4.3) 08/05/19 08:53 Baso % (Auto) 1.3 % (0.0-1.8) 08/05/19 08:53 Lymph # 2.7 K/mm3 (1.2-5.4) 08/05/19 08:53 [place]att # 1.0 K/mm3 (0.0-0.8) H 08/05/19 08:53 Eos # 0.2 K/mm3 (0.0-0.4) 08/05/19 08:53 Baso # 0.1 K/mm3 (0.0-0.1) 08/05/19 08:53 Add Manual Diff Complete 08/01/19 06:26 Total Counted 100 08/01/19 06:26 Seg Neutrophils % 62.9 % (40.0-70.0) 08/05/19 08:53 Seg Neuts % (Manual) 82.0 % (40.0-70.0) H 08/01/19 06:26 Band Neutrophils % 2.0 % 08/01/19 06:26 Lymphocytes % (Manual) 7.0 % (13.4-35.0) L 08/01/19 06:26 Reactive Lymphs % (Man) 0 % 08/01/19 06:26 Monocytes % (Manual) 7.0 % (0.0-7.3) 08/01/19 06:26 Eosinophils % (Manual) 0 % (0.0-4.3) 08/01/19 06:26 Basophils % (Manual) 1.0 % (0.0-1.8) 08/01/19 06:26 Metamyelocytes % 1.0 % 08/01/19 06:26 Myelocytes % 0 % 08/01/19 06:26 Promyelocytes % 0 % 08/01/19 06:26 Blast Cells % 0 % 08/01/19 06:26 Nucleated RBC % Not Reportable 08/01/19 06:26 Seg Neutrophils # 6.9 K/mm3 (1.8-7.7) 08/05/19 08:53 Seg Neutrophils # Man 13.6 K/mm3 (1.8-7.7) H 08/01/19 06:26 Band Neutrophils # 0.3 K/mm3 08/01/19 06:26 Lymphocytes # (Manual) 1.2 K/mm3 (1.2-5.4) 08/01/19 06:26 Abs React Lymphs (Man) 0.0 K/mm3 08/01/19 06:26 Monocytes # (Manual) 1.2 K/mm3 (0.0-0.8) H 08/01/19 06:26 Eosinophils # (Manual) 0.0 K/mm3 (0.0-0.4) 08/01/19 06:26 Basophils # (Manual) 0.2 K/mm3 (0.0-0.1) H 08/01/19 06:26 Metamyelocytes # 0.2 K/mm3 08/01/19 06:26 Myelocytes # 0.0 K/mm3 08/01/19 06:26 Promyelocytes # 0.0 K/mm3 08/01/19 06:26 Blast Cells # 0.0 K/mm3 08/01/19 06:26 WBC Morphology Not Reportable 08/01/19 06:26 Hypersegmented Neuts Not Reportable 08/01/19 06:26 Hyposegmented Neuts Not Reportable 08/01/19 06:26 Hypogranular Neuts Not Reportable 08/01/19 06:26 Smudge Cells Not Reportable 08/01/19 06:26 Toxic Granulation Not Reportable 08/01/19 06:26 Toxic Vacuolation Not Reportable 08/01/19 06:26 Dohle Bodies Not Reportable 08/01/19 06:26 Pelger-Huet Anomaly Not Reportable 08/01/19 06:26 Mago Rods Not Reportable 08/01/19 06:26 Platelet Estimate Consistent w auto 08/01/19 06:26 Clumped Platelets Not Reportable 08/01/19 06:26 Plt Clumps, EDTA Not Reportable 08/01/19 06:26 Large Platelets Few 08/01/19 06:26 Giant Platelets Not Reportable 08/01/19 06:26 Platelet Satelliting Not Reportable 08/01/19 06:26 Plt Morphology Comment Not Reportable 08/01/19 06:26 RBC Morphology Not Reportable 08/01/19 06:26 Dimorphic RBCs Not Reportable 08/01/19 06:26 Polychromasia Not Reportable 08/01/19 06:26 Hypochromasia Not Reportable 08/01/19 06:26 Poikilocytosis Not Reportable 08/01/19 06:26 Anisocytosis 1+ 08/01/19 06:26 Microcytosis Not Reportable 08/01/19 06:26 Macrocytosis Not Reportable 08/01/19 06:26 Spherocytes Not Reportable 08/01/19 06:26 Pappenheimer Bodies Not Reportable 08/01/19 06:26 Sickle Cells Not Reportable 08/01/19 06:26 Target Cells Not Reportable 08/01/19 06:26 Tear Drop Cells Not Reportable 08/01/19 06:26 Ovalocytes Not Reportable 08/01/19 06:26 Helmet Cells Not Reportable 08/01/19 06:26 Rao-[place]eds Bodies Not Reportable 08/01/19 06:26 [place] Rings Not Reportable 08/01/19 06:26 [place] Cells Not Reportable 08/01/19 06:26 Bite Cells Not Reportable 08/01/19 06:26 Crenated Cell Not Reportable 08/01/19 06:26 Elliptocytes Not Reportable 08/01/19 06:26 Acanthocytes (Spur) Not Reportable 08/01/19 06:26 Rouleaux Not Reportable 08/01/19 06:26 Hemoglobin C Crystals Not Reportable 08/01/19 06:26 Schistocytes Not Reportable 08/01/19 06:26 Malaria parasites Not Reportable 08/01/19 06:26 Shahriar Bodies Not Reportable 08/01/19 06:26 Hem Pathologist Commnt No 08/01/19 06:26 PT 15.9 Sec. (12.2-14.9) H 08/05/19 08:53 INR 1.29 (0.87-1.13) H 08/05/19 08:53 Sodium 139 mmol/L (137-145) 08/05/19 08:53 Potassium 4.6 mmol/L (3.6-5.0) 08/05/19 08:53 Chloride 90.1 mmol/L (98-107) L 08/05/19 08:53 Carbon Dioxide 18 mmol/L (22-30) L 08/05/19 08:53 Anion Gap 36 mmol/L 08/05/19 08:53 BUN 114 mg/dL (9-20) H 08/05/19 08:53 Creatinine 13.7 mg/dL (0.8-1.5) H 08/05/19 08:53 Estimated GFR 5 ml/min 08/05/19 08:53 BUN/Creatinine Ratio 8 % 08/05/19 08:53 Glucose 82 mg/dL (75-100) 08/05/19 08:53 POC Glucose 83 (70-105) 08/03/19 12:40 Calcium 9.4 mg/dL (8.4-10.2) 08/05/19 08:53 Total Bilirubin 0.30 mg/dL (0.1-1.2) 08/01/19 06:26 AST 17 units/L (5-40) 08/01/19 06:26 ALT 26 units/L (7-56) 08/01/19 06:26 Alkaline Phosphatase 97 units/L (35-129) 08/01/19 06:26 Total Protein 6.9 g/dL (6.3-8.2) 08/01/19 06:26 Albumin 3.1 g/dL (3.9-5) L 08/01/19 06:26 Albumin/Globulin Ratio 0.8 % 08/01/19 06:26 Hepatitis A IgM Ab Non-reactive (NonReactive) 08/01/19 15:26 Hep Bs Antigen Non-reactive (Negative) 08/01/19 15:26 Hep B Core IgM Ab Non-reactive (NonReactive) 08/01/19 15:26 Hepatitis C Antibody Non-reactive (NonReactive) 08/01/19 15:26 HSV I Specific Ab 58.00 Index (<0.90) H 07/31/19 21:42 Group A Strep Rapid Negative (Negative) 07/31/19 22:45 Active Medications - Current Medications Current Medications: Generic Name Dose Route Start Last Admin Trade Name Freq PRN Reason Stop Dose Admin Acyclovir 1 applic 08/02/19 14:00 08/05/19 14:25 Acyclovir TP Not Given 5XD JOSEFINA Dextrose 50 ml 07/31/19 17:13 D50w (25gm) Syringe IV Q30MIN PRN HYPOGLYCEMIA Protocol Enoxaparin Sodium 30 mg 08/01/19 10:00 08/05/19 10:16 Enoxaparin SUB-Q Not Given QDAY JOSEFINA Epoetin Jose 4,000 unit 08/01/19 11:55 Procrit IV EDITH PRN hemodialysis Sodium Chloride 100 mls @ 999 mls/hr 08/01/19 11:54 Nacl 0.9% IV EDITH PRN Hypotension Morphine Sulfate 2 mg 08/03/19 15:11 08/05/19 13:19 Morphine IV 2 mg Q4H PRN Administration Pain, Moderate (4-6) Ondansetron HCl 4 mg 08/03/19 04:23 08/03/19 05:55 Zofran IV 4 mg Q6H PRN Administration Nausea And Vomiting Sodium Chloride 10 ml 07/31/19 22:00 08/05/19 12:27 Sodium Chloride Flush Syringe 10 Ml IV 10 ml BID JOSEFINA Administration Sodium Chloride 10 ml 07/31/19 17:11 Sodium Chloride Flush Syringe 10 Ml IV PRN PRN LINE FLUSH Valacyclovir HCl 500 mg 08/01/19 15:00 08/05/19 12:27 Valtrex PO 500 mg QDAY JOSEFINA Administration Nutrition/Malnutrition Assess - Dietary Evaluation Nutrition/Malnutrition Findings: Nutrition Notes Start: 08/01/19 10:06 Freq: Status: Active Protocol: Document 08/02/19 10:31 GABRIEL (Rec: 08/02/19 11:18 GABRIEL [id number]) Co-Sign 08/02/19 10:31 LP Nutrition Notes Initial or Follow up Reassessment Current Diagnosis CKD (stage V CKD) Other Pertinent Diagnosis ESRD on HD, ARF, SIRS, perioral dermatitis Current Diet Renal Labs/Tests BUN 106 Cr 9.4 Pertinent Medications Reviewed Height 5 ft 6 in Weight 121.4 kg [place] Body Weight (kg) 64.54 BMI 43.2 Weight Status Morbidly Obese Subjective/Other Information F/U for PO and ONS intakes. Pt was on airborne precautions. Called nurse and she stated that he had eaten about 25% of breakfast and hasn't drank the nepro yet. Percent of energy/protein needs met: 26%/18% Burn Absent Trauma Absent Minimum of two criteria No physical signs of malnutrition #1 Nutrition Diagnosis Inadequate oral intake Diagnosis Progress(for reassessment Continues documentation) Is patient on ventilator? No Is Patient Ambulatory and/or Out of Bed Yes REE-([place]-St. Jeor-ambulatory/OOB) [ 2595.775 NUTR.MSJOOB] Kcal/Kg value to use for calculation 17 Approximate Energy Requirements Using 2063 kcal/Kg Calculation Used for Recommendations Kcal/kg Additional Notes PRO needs: >110g/day(>1.2g/kg/ AdBW 92kg) Fluid neds: 1-1.5L/day or per MD Nutrition Intervention Change Diet Order: Continue renal diet Add Supplement/Snack (indicate name/kcal Nepro once a day /protein ) Provides kCal: 425 Provides Protein (gm) 19 Goal #1 Pt meet >80% of kcal/PRO needs via PO and ONS. Goal #2 Wound healing Follow-Up By: 08/06/19 Additional Comments F/U for PO/ONS intakes.
--- NOTE | 2019-08-05 16:58 | Progress Note ---
Assessment and Plan - Patient Problems (1) HTN (hypertension) Current Visit: Yes Status: Acute Plan to address problem: Hypertension controlled Continue current medications (2) ESRD (end stage renal disease) Current Visit: No Status: Acute Plan to address problem: ESRD on HD - Will intiate Hemodialysis Continue hemodialysis Monday -2K ,2ca 35hco3. (3) Acidosis Current Visit: Yes Status: Acute Plan to address problem: Acidosis 2/2 CKD Will initiate Hemodialysis. (4) Perioral dermatitis Current Visit: Yes Status: Acute Plan to address problem: Perioral dermatitis Currently on valacyclovir ID following Subjective Principal diagnosis: shortness of breath Interval history: 54-year-old gentleman with end-stage renal disease recent concern for air embolism was sensitive [place] but only had declot procedure of his access as there was no air embolism found Patient dialysis today has lesions on his mouth and lips denies any edema denies any shortness of breath Objective - Vital Signs Vital signs: Vital Signs - 12hr 08/05/19 08/05/19 08/05/19 13:38 13:45 14:00 Pulse Rate 79 82 89 Blood Pressure 108/55 104/52 106/51 08/05/19 08/05/19 08/05/19 14:15 14:30 14:45 Pulse Rate 92 H 83 88 Blood Pressure 96/36 91/42 108/51 08/05/19 08/05/19 08/05/19 15:00 15:15 15:30 Pulse Rate 81 86 90 Blood Pressure 124/63 117/63 118/48 08/05/19 08/05/19 08/05/19 15:45 16:00 16:15 Pulse Rate 87 90 86 Blood Pressure 109/53 127/39 134/62 08/05/19 16:30 Pulse Rate 84 Blood Pressure 124/60 - General Appearance General appearance: well-developed, well-nourished EENT: ATNC, PERRL, other (oropharyngeal lesions) Neck: no JVD Respiratory: Present: Clear to Ascultation Cardiology: regular, S1S2 Gastrointestinal: normal, normoactive bowel sounds Integumentary: no rash Neurologic: alert and oriented x3, CN 3-12 intact Psychiatric: mood/affect appropriate - Lab 08/05/19 08:53 08/05/19 08:53 Most recent lab results Calcium 9.4 mg/dL (8.4-10.2) 08/05/19 08:53 - Imaging Chest x-ray: image reviewed Medications & Allergies - Medications Allergies/Adverse Reactions: Allergies No Known Allergies Allergy (Unverified 07/23/19 01:49) Home Medications: Home Medications Medication Instructions Recorded Confirmed Last Taken Type Dextrose 50% in Water [D50W (25GM) 50 ml IV Q30MIN PRN syringe 07/23/19 08/01/19 Unknown Rx Syringe] Enoxaparin 30 mg SUB-Q QDAY syringe 07/23/19 08/01/19 Unknown Rx Midazolam 100 mg IV TITR vial 07/23/19 08/01/19 Unknown Rx Oseltamivir Phosphate [Tamiflu] 30 mg PO DAILY oralsyr 07/23/19 08/01/19 Unknown Rx Phenylephrine 100 mg IV TITR vial 07/23/19 08/01/19 Unknown Rx Sodium Bicarbonate 150 meq IV DIRECT vial 07/23/19 08/01/19 Unknown Rx Sodium Bicarbonate [SODIUM 50 meq IV ONCE PRN syringe 07/23/19 08/01/19 Unknown Rx BICARBONATE 50mEq Syringe] Sodium Chloride 0.9% Int [Sodium 10 ml IV BID syringe 07/23/19 08/01/19 Unknown Rx Chloride Flush Syringe 10 ml] Sodium Chloride 0.9% [NaCl 0.9% 100 ml IV TITR bag 07/23/19 08/01/19 Unknown Rx 100 ML] Vasopressin [Vasostrict] 20 unit IV DIRECT vial 07/23/19 08/01/19 Unknown Rx Aspirin [Aspirin BABY CHEW TAB] 81 mg PO QDAY 08/01/19 08/01/19 Unknown History AtorvaSTATin [Lipitor] 40 mg PO QHS 08/01/19 08/01/19 Unknown History Epoetin Jose 10,000 Unit [Procrit] 10,000 unit SQ Q2W 08/01/19 08/01/19 Unknown History Hydralazine HCl 50 mg PO TID 08/01/19 08/01/19 Unknown History NIFEdipine [Nifedipine ER] 30 mg PO Q12HR 08/01/19 08/01/19 Unknown History Active Medications: Generic Name Dose Route Start Last Admin Trade Name Freq PRN Reason Stop Dose Admin Acyclovir 1 applic 08/02/19 14:00 08/05/19 14:25 Acyclovir TP Not Given 5XD JOSEFINA Dextrose 50 ml 07/31/19 17:13 D50w (25gm) Syringe IV Q30MIN PRN HYPOGLYCEMIA Protocol Enoxaparin Sodium 30 mg 08/01/19 10:00 08/05/19 10:16 Enoxaparin SUB-Q Not Given QDAY [facility] Epoetin Jose 4,000 unit 08/01/19 11:55 Procrit IV EDITH PRN hemodialysis Sodium Chloride 100 mls @ 999 mls/hr 08/01/19 11:54 Nacl 0.9% IV EDITH PRN Hypotension Morphine Sulfate 2 mg 08/03/19 15:11 08/05/19 13:19 Morphine IV 2 mg Q4H PRN Administration Pain, Moderate (4-6) Ondansetron HCl 4 mg 08/03/19 04:23 08/03/19 05:55 Zofran IV 4 mg Q6H PRN Administration Nausea And Vomiting Sodium Chloride 10 ml 07/31/19 22:00 08/05/19 12:27 Sodium Chloride Flush Syringe 10 Ml IV 10 ml BID JOSEFINA Administration Sodium Chloride 10 ml 07/31/19 17:11 Sodium Chloride Flush Syringe 10 Ml IV PRN PRN LINE FLUSH Valacyclovir HCl 500 mg 08/01/19 15:00 08/05/19 12:27 Valtrex PO 500 mg QDAY JOSEFINA Administration
[2019-08-06] MEDS: MORPHINE 2 MG/1 ML INJ IV PRN ×3 (01:20→21:05)
[2019-08-06] MEDS: ACYCLOVIR TP SCH ×5 (05:44→21:06)
--- NOTE | 2019-08-06 10:36 | Progress Note ---
Assessment and Plan - Patient Problems (1) HTN (hypertension) Current Visit: Yes Status: Acute Plan to address problem: Hypertension controlled Continue current medications (2) ESRD (end stage renal disease) Current Visit: No Status: Acute Plan to address problem: ESRD on HD - Will intiate Hemodialysis Continue hemodialysis Monday -2K ,2ca 35hco3. (3) Acidosis Current Visit: Yes Status: Acute Plan to address problem: Acidosis 2/2 CKD Will initiate Hemodialysis. (4) Perioral dermatitis Current Visit: Yes Status: Acute Plan to address problem: Perioral dermatitis Currently on valacyclovir ID following Subjective Principal diagnosis: shortness of breath Interval history: 54-year-old gentleman with end-stage renal disease recent concern for air embolism was sensitive [place] but only had declot procedure of his access as there was no air embolism found The patient was seen today had dialysis yesterday We'll repeat dialysis tomorrow Tolerated dialysis denies any shortness of breath no lower extremity edema Objective - Vital Signs Vital signs: Vital Signs - 12hr 08/05/19 08/06/19 08/06/19 22:55 01:20 04:10 Temperature 98.8 F 98.7 F Pulse Rate 95 H 85 Respiratory 20 20 20 Rate Blood Pressure 97/58 102/49 O2 Sat by Pulse 95 91 Oximetry - General Appearance General appearance: well-developed, well-nourished EENT: ATNC, PERRL, other (perioral lesions) Neck: no JVD Respiratory: Present: Clear to Ascultation Cardiology: regular, S1S2 Gastrointestinal: normal, normoactive bowel sounds Integumentary: no rash Neurologic: alert and oriented x3, CN 3-12 intact Musculoskeletal: deferred Psychiatric: mood/affect appropriate - Lab 08/05/19 08:53 08/05/19 08:53 Most recent lab results Calcium 9.4 mg/dL (8.4-10.2) 08/05/19 08:53 - Imaging Chest x-ray: image reviewed Medications & Allergies - Medications Allergies/Adverse Reactions: Allergies No Known Allergies Allergy (Unverified 07/23/19 01:49) Home Medications: Home Medications Medication Instructions Recorded Confirmed Last Taken Type Dextrose 50% in Water [D50W (25GM) 50 ml IV Q30MIN PRN syringe 07/23/19 08/01/19 Unknown Rx Syringe] Enoxaparin 30 mg SUB-Q QDAY syringe 07/23/19 08/01/19 Unknown Rx Midazolam 100 mg IV TITR vial 07/23/19 08/01/19 Unknown Rx Oseltamivir Phosphate [Tamiflu] 30 mg PO DAILY oralsyr 07/23/19 08/01/19 Unknown Rx Phenylephrine 100 mg IV TITR vial 07/23/19 08/01/19 Unknown Rx Sodium Bicarbonate 150 meq IV DIRECT vial 07/23/19 08/01/19 Unknown Rx Sodium Bicarbonate [SODIUM 50 meq IV ONCE PRN syringe 07/23/19 08/01/19 Unknown Rx BICARBONATE 50mEq Syringe] Sodium Chloride 0.9% Int [Sodium 10 ml IV BID syringe 07/23/19 08/01/19 Unknown Rx Chloride Flush Syringe 10 ml] Sodium Chloride 0.9% [NaCl 0.9% 100 ml IV TITR bag 07/23/19 08/01/19 Unknown Rx 100 ML] Vasopressin [Vasostrict] 20 unit IV DIRECT vial 07/23/19 08/01/19 Unknown Rx Aspirin [Aspirin BABY CHEW TAB] 81 mg PO QDAY 08/01/19 08/01/19 Unknown History AtorvaSTATin [Lipitor] 40 mg PO QHS 08/01/19 08/01/19 Unknown History Epoetin Jose 10,000 Unit [Procrit] 10,000 unit SQ Q2W 08/01/19 08/01/19 Unknown History Hydralazine HCl 50 mg PO TID 08/01/19 08/01/19 Unknown History NIFEdipine [Nifedipine ER] 30 mg PO Q12HR 08/01/19 08/01/19 Unknown History Active Medications: Generic Name Dose Route Start Last Admin Trade Name Freq PRN Reason Stop Dose Admin Acyclovir 1 applic 08/02/19 14:00 08/06/19 05:44 Acyclovir TP 1 applic 5XD JOSEFINA Administration Dextrose 50 ml 07/31/19 17:13 D50w (25gm) Syringe IV Q30MIN PRN HYPOGLYCEMIA Protocol Enoxaparin Sodium 30 mg 08/01/19 10:00 08/05/19 10:16 Enoxaparin SUB-Q Not Given QDAY JOSEFINA Epoetin Jose 4,000 unit 08/01/19 11:55 Procrit IV EDITH PRN hemodialysis Sodium Chloride 100 mls @ 999 mls/hr 08/01/19 11:54 Nacl 0.9% IV EDITH PRN Hypotension Morphine Sulfate 2 mg 08/03/19 15:11 08/06/19 01:20 Morphine IV 2 mg Q4H PRN Administration Pain, Moderate (4-6) Ondansetron HCl 4 mg 08/03/19 04:23 08/03/19 05:55 Zofran IV 4 mg Q6H PRN Administration Nausea And Vomiting Sodium Chloride 10 ml 07/31/19 22:00 08/05/19 21:40 Sodium Chloride Flush Syringe 10 Ml IV 10 ml BID JOSEFINA Administration Sodium Chloride 10 ml 07/31/19 17:11 Sodium Chloride Flush Syringe 10 Ml IV PRN PRN LINE FLUSH Valacyclovir HCl 500 mg 08/01/19 15:00 08/05/19 12:27 Valtrex PO 500 mg QDAY JOSEFINA Administration
--- NOTE | 2019-08-06 10:38 | Procedure Note ---
Date of procedure: 08/06/19 Pre-op diagnosis: AMS, concern for encephalitis Post-op diagnosis: same Procedure: Fluoroscopically guided lumbar puncture Findings: Please see report in PACS. Anesthesia: local Surgeon: HOLDEN BYRD Estimated blood loss: none Pathology: list (orders per primary team.) Specimen disposition: to lab Condition: stable Disposition: floor
--- NOTE | 2019-08-06 10:55 | Progress Note ---
Assessment and Plan Assessment and plan: 54 YO Male with ESRD on HD readmitted to ICU for Acute Respiratory Failure Suspected secondary to Air Embolism. Pt discharged from ICU and transferred to [facility], in [place], [place]. Pt transferred to [facility]. Pt admitted to ICU. Pt seen and evaluated in his room upon arrival. Pt denies fever, chills, CP, Palpitations, NVD, Trauma, or recent ill contacts. Pt acknowledges painful blisters around his mouth. Nephrology consulted upon arrival. Pulmonary team consulted upon arrival. * Hyperbaric treatment was not done * Rehab recommended but patient and Niece declines - Patient Problems (1) Metabolic encephalopathy Current Visit: Yes Status: Acute Plan to address problem: Metabolic encephalopathy, resolved, now at baseline. Initial workup negative. although at this time, I am not sure what the utility will show considering patient on Medication. (2) Perioral dermatitis Current Visit: Yes Status: Acute Plan to address problem: Patient. Old dermatitis appears to be scabbing and improving. It was extensive. Patient takes acyclovir. Morphine does help patient's pain. (3) Acute respiratory failure with hypoxia Current Visit: No Status: Acute Plan to address problem: Better. (4) ESRD (end stage renal disease) Current Visit: No Status: Acute Plan to address problem: Patient scheduled for hemodialysis on Monday. (5) SIRS (systemic inflammatory response syndrome) Current Visit: No Status: Acute Plan to address problem: Resolving. Afebrile more alert. Could be secondary to perioral dermatitis Lumbar puncture today to check for Herpes History Interval history: Mouth sores Hospitalist Physical - Physical exam Narrative exam: Gen: Not in acute distress, lying in bed,morbidly obese HEENT: Mouth sores, atraumatic Neck: supple, no JVD Heart: S1 and S2 reg, no murmurs, rubs or gallop Lungs: Clear to auscultation bilaterally, Abd: soft, non tender, non distended, normal BS, Ext: No edema, no clubbing, no cyanosis Neuro: Awake, alert, oriented X 3, no focal neurological signs - Constitutional Vitals: Temp Pulse Resp BP Pulse Ox 98.7 F 85 20 102/49 91 08/06/19 04:10 08/06/19 04:10 08/06/19 04:10 08/06/19 04:10 08/06/19 04:10 General appearance: Present: mild distress Results - Labs CBC & Chem 7: 08/05/19 08:53 08/05/19 08:53 Labs: Laboratory Last Values WBC 11.0 K/mm3 (4.5-11.0) 08/05/19 08:53 RBC 2.78 M/mm3 (3.65-5.03) L 08/05/19 08:53 Hgb 8.2 gm/dl (11.8-15.2) L 08/05/19 08:53 Hct 24.6 % (35.5-45.6) L 08/05/19 08:53 MCV 89 fl (84-94) 08/05/19 08:53 MCH 30 pg (28-32) 08/05/19 08:53 MCHC 33 % (32-34) 08/05/19 08:53 RDW 14.0 % (13.2-15.2) 08/05/19 08:53 Plt Count 410 K/mm3 (140-440) 08/05/19 08:53 Lymph % (Auto) 24.7 % (13.4-35.0) 08/05/19 08:53 Dickson % (Auto) 9.1 % (0.0-7.3) H 08/05/19 08:53 Eos % (Auto) 2.0 % (0.0-4.3) 08/05/19 08:53 Baso % (Auto) 1.3 % (0.0-1.8) 08/05/19 08:53 Lymph # 2.7 K/mm3 (1.2-5.4) 08/05/19 08:53 Dickson # 1.0 K/mm3 (0.0-0.8) H 08/05/19 08:53 Eos # 0.2 K/mm3 (0.0-0.4) 08/05/19 08:53 Baso # 0.1 K/mm3 (0.0-0.1) 08/05/19 08:53 Add Manual Diff Complete 08/01/19 06:26 Total Counted 100 08/01/19 06:26 Seg Neutrophils % 62.9 % (40.0-70.0) 08/05/19 08:53 Seg Neuts % (Manual) 82.0 % (40.0-70.0) H 08/01/19 06:26 Band Neutrophils % 2.0 % 08/01/19 06:26 Lymphocytes % (Manual) 7.0 % (13.4-35.0) L 08/01/19 06:26 Reactive Lymphs % (Man) 0 % 08/01/19 06:26 Monocytes % (Manual) 7.0 % (0.0-7.3) 08/01/19 06:26 Eosinophils % (Manual) 0 % (0.0-4.3) 08/01/19 06:26 Basophils % (Manual) 1.0 % (0.0-1.8) 08/01/19 06:26 Metamyelocytes % 1.0 % 08/01/19 06:26 Myelocytes % 0 % 08/01/19 06:26 Promyelocytes % 0 % 08/01/19 06:26 Blast Cells % 0 % 08/01/19 06:26 Nucleated RBC % Not Reportable 08/01/19 06:26 Seg Neutrophils # 6.9 K/mm3 (1.8-7.7) 08/05/19 08:53 Seg Neutrophils # Man 13.6 K/mm3 (1.8-7.7) H 08/01/19 06:26 Band Neutrophils # 0.3 K/mm3 08/01/19 06:26 Lymphocytes # (Manual) 1.2 K/mm3 (1.2-5.4) 08/01/19 06:26 Abs React Lymphs (Man) 0.0 K/mm3 08/01/19 06:26 Monocytes # (Manual) 1.2 K/mm3 (0.0-0.8) H 08/01/19 06:26 Eosinophils # (Manual) 0.0 K/mm3 (0.0-0.4) 08/01/19 06:26 Basophils # (Manual) 0.2 K/mm3 (0.0-0.1) H 08/01/19 06:26 Metamyelocytes # 0.2 K/mm3 08/01/19 06:26 Myelocytes # 0.0 K/mm3 08/01/19 06:26 Promyelocytes # 0.0 K/mm3 08/01/19 06:26 Blast Cells # 0.0 K/mm3 08/01/19 06:26 WBC Morphology Not Reportable 08/01/19 06:26 Hypersegmented Neuts Not Reportable 08/01/19 06:26 Hyposegmented Neuts Not Reportable 08/01/19 06:26 Hypogranular Neuts Not Reportable 08/01/19 06:26 Smudge Cells Not Reportable 08/01/19 06:26 Toxic Granulation Not Reportable 08/01/19 06:26 Toxic Vacuolation Not Reportable 08/01/19 06:26 Dohle Bodies Not Reportable 08/01/19 06:26 Pelger-Huet Anomaly Not Reportable 08/01/19 06:26 Mago Rods Not Reportable 08/01/19 06:26 Platelet Estimate Consistent w auto 08/01/19 06:26 Clumped Platelets Not Reportable 08/01/19 06:26 Plt Clumps, EDTA Not Reportable 08/01/19 06:26 Large Platelets Few 08/01/19 06:26 Giant Platelets Not Reportable 08/01/19 06:26 Platelet Satelliting Not Reportable 08/01/19 06:26 Plt Morphology Comment Not Reportable 08/01/19 06:26 RBC Morphology Not Reportable 08/01/19 06:26 Dimorphic RBCs Not Reportable 08/01/19 06:26 Polychromasia Not Reportable 08/01/19 06:26 Hypochromasia Not Reportable 08/01/19 06:26 Poikilocytosis Not Reportable 08/01/19 06:26 Anisocytosis 1+ 08/01/19 06:26 Microcytosis Not Reportable 08/01/19 06:26 Macrocytosis Not Reportable 08/01/19 06:26 Spherocytes Not Reportable 08/01/19 06:26 Pappenheimer Bodies Not Reportable 08/01/19 06:26 Sickle Cells Not Reportable 08/01/19 06:26 Target Cells Not Reportable 08/01/19 06:26 Tear Drop Cells Not Reportable 08/01/19 06:26 Ovalocytes Not Reportable 08/01/19 06:26 Helmet Cells Not Reportable 08/01/19 06:26 Rao-Gumbranch Bodies Not Reportable 08/01/19 06:26 Vancourt Rings Not Reportable 08/01/19 06:26 Melba Cells Not Reportable 08/01/19 06:26 Bite Cells Not Reportable 08/01/19 06:26 Crenated Cell Not Reportable 08/01/19 06:26 Elliptocytes Not Reportable 08/01/19 06:26 Acanthocytes (Spur) Not Reportable 08/01/19 06:26 Rouleaux Not Reportable 08/01/19 06:26 Hemoglobin C Crystals Not Reportable 08/01/19 06:26 Schistocytes Not Reportable 08/01/19 06:26 Malaria parasites Not Reportable 08/01/19 06:26 Shahriar Bodies Not Reportable 08/01/19 06:26 Hem Pathologist Commnt No 08/01/19 06:26 PT 15.9 Sec. (12.2-14.9) H 08/05/19 08:53 INR 1.29 (0.87-1.13) H 08/05/19 08:53 Sodium 139 mmol/L (137-145) 08/05/19 08:53 Potassium 4.6 mmol/L (3.6-5.0) 08/05/19 08:53 Chloride 90.1 mmol/L (98-107) L 08/05/19 08:53 Carbon Dioxide 18 mmol/L (22-30) L 08/05/19 08:53 Anion Gap 36 mmol/L 08/05/19 08:53 BUN 114 mg/dL (9-20) H 08/05/19 08:53 Creatinine 13.7 mg/dL (0.8-1.5) H 08/05/19 08:53 Estimated GFR 5 ml/min 08/05/19 08:53 BUN/Creatinine Ratio 8 % 08/05/19 08:53 Glucose 82 mg/dL (75-100) 08/05/19 08:53 POC Glucose 83 (70-105) 08/03/19 12:40 Calcium 9.4 mg/dL (8.4-10.2) 08/05/19 08:53 Total Bilirubin 0.30 mg/dL (0.1-1.2) 08/01/19 06:26 AST 17 units/L (5-40) 08/01/19 06:26 ALT 26 units/L (7-56) 08/01/19 06:26 Alkaline Phosphatase 97 units/L (35-129) 08/01/19 06:26 Total Protein 6.9 g/dL (6.3-8.2) 08/01/19 06:26 Albumin 3.1 g/dL (3.9-5) L 08/01/19 06:26 Albumin/Globulin Ratio 0.8 % 08/01/19 06:26 Hepatitis A IgM Ab Non-reactive (NonReactive) 08/01/19 15:26 Hep Bs Antigen Non-reactive (Negative) 08/01/19 15:26 Hep B Core IgM Ab Non-reactive (NonReactive) 08/01/19 15:26 Hepatitis C Antibody Non-reactive (NonReactive) 08/01/19 15:26 HSV I Specific Ab 58.00 Index (<0.90) H 07/31/19 21:42 Group A Strep Rapid Negative (Negative) 07/31/19 22:45 Active Medications - Current Medications Current Medications: Generic Name Dose Route Start Last Admin Trade Name Freq PRN Reason Stop Dose Admin Acyclovir 1 applic 08/02/19 14:00 08/06/19 05:44 Acyclovir TP 1 applic 5XD JOSEFINA Administration Dextrose 50 ml 07/31/19 17:13 D50w (25gm) Syringe IV Q30MIN PRN HYPOGLYCEMIA Protocol Enoxaparin Sodium 30 mg 08/01/19 10:00 08/05/19 10:16 Enoxaparin SUB-Q Not Given QDAY [facility] Epoetin Jose 4,000 unit 08/01/19 11:55 Procrit IV EDITH PRN hemodialysis Sodium Chloride 100 mls @ 999 mls/hr 08/01/19 11:54 Nacl 0.9% IV EDITH PRN Hypotension Morphine Sulfate 2 mg 08/03/19 15:11 08/06/19 01:20 Morphine IV 2 mg Q4H PRN Administration Pain, Moderate (4-6) Ondansetron HCl 4 mg 08/03/19 04:23 08/03/19 05:55 Zofran IV 4 mg Q6H PRN Administration Nausea And Vomiting Sodium Chloride 10 ml 07/31/19 22:00 08/05/19 21:40 Sodium Chloride Flush Syringe 10 Ml IV 10 ml BID JOSEFINA Administration Sodium Chloride 10 ml 07/31/19 17:11 Sodium Chloride Flush Syringe 10 Ml IV PRN PRN LINE FLUSH Valacyclovir HCl 500 mg 08/01/19 15:00 08/05/19 12:27 Valtrex PO 500 mg QDAY JOSEFINA Administration Nutrition/Malnutrition Assess - Dietary Evaluation Nutrition/Malnutrition Findings: Nutrition Notes Start: 08/01/19 10:06 Freq: Status: Active Protocol: Document 08/02/19 10:31 GABRIEL (Rec: 08/02/19 11:18 GABRIEL [id number]) Co-Sign 08/02/19 10:31 LP Nutrition Notes Initial or Follow up Reassessment Current Diagnosis CKD (stage V CKD) Other Pertinent Diagnosis ESRD on HD, ARF, SIRS, perioral dermatitis Current Diet Renal Labs/Tests BUN 106 Cr 9.4 Pertinent Medications Reviewed Height 5 ft 6 in Weight 121.4 kg [place] Body Weight (kg) 64.54 BMI 43.2 Weight Status Morbidly Obese Subjective/Other Information F/U for PO and ONS intakes. Pt was on airborne precautions. Called nurse and she stated that he had eaten about 25% of breakfast and hasn't drank the nepro yet. Percent of energy/protein needs met: 26%/18% Burn Absent Trauma Absent Minimum of two criteria No physical signs of malnutrition #1 Nutrition Diagnosis Inadequate oral intake Diagnosis Progress(for reassessment Continues documentation) Is patient on ventilator? No Is Patient Ambulatory and/or Out of Bed Yes REE-([place]-St. Jeor-ambulatory/OOB) [ 2595.775 NUTR.[id number]] Kcal/Kg value to use for calculation 17 Approximate Energy Requirements Using 2063 kcal/Kg Calculation Used for Recommendations Kcal/kg Additional Notes PRO needs: >110g/day(>1.2g/kg/ AdBW 92kg) Fluid neds: 1-1.5L/day or per MD Nutrition Intervention Change Diet Order: Continue renal diet Add Supplement/Snack (indicate name/kcal Nepro once a day /protein ) Provides kCal: 425 Provides Protein (gm) 19 Goal #1 Pt meet >80% of kcal/PRO needs via PO and ONS. Goal #2 Wound healing Follow-Up By: 08/06/19 Additional Comments F/U for PO/ONS intakes.
--- NOTE | 2019-08-06 10:57 | Fluoroscopy Report ---
Lumbar puncture INDICATION : Altered mental status, concern for encephalitis PROCEDURE: The risks (including but not limited to bleeding, infection, and spinal headache) and miguelangel efits were explained to the patient and informed consent was obtained. A time out procedure was perf ormed. The procedure site was prepped and draped in the usual sterile fashion and lidocaine was used for local anesthesia. Under fluoroscopic guidance, a 22-gauge spinal needle was advanced into the L4/5 interlaminar space. 4 separate collection tubes were used to obtain 1, 1, 2, and 2 mL of CSF. Samples were sent to the la b per the ordering physician specifications for further evaluation. The patient tolerated the procedure well with no complications. IMPRESSION: 1. Successful lumbar puncture as outlined above. Fluoroscopic time: 1.2 minutes Number of fluoroscopic images: 1 Signer Name: Gabino Vargas MD Signed: 08/06/2019 10:53 AM Workstation Name: [id number]
[2019-08-06 11:08] LABS: Glucose,CSF 56 mg/dL
[2019-08-06 11:23] LABS: Appearance,CSF Clear; White Blood Cell,CSF 4 /mm3 (1-10)
[2019-08-06 11:24] LABS: Red Blood Cell,CSF 3 /mm3 (0-0)
--- NOTE | 2019-08-06 11:57 | Progress Note ---
Assessment and Plan Cultures: None this admission. Previous admission cultures reviewed, negative. Outside hospital chart reviewed. A/P: 54-year-old male with ESRD on hemodialysis was recently hospitalized here about 10 days ago with acute respiratory failure initially thought to be secondary to air embolism, and now transferred back: 1) Severe lip and perioral lesions: Improving. New onset. Appear hemorrhagic and tender. 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 No oral mucosa involvement, no ocular involvement, no rash anywhere else, so SJS/TEN seems less likely. Monitor closely for any changes. 2) ESRD on HD: renally dose Valtrex. 3) Acute encephalopathy: resolved. CSF not c/w meningitis. Given concern for HSV reactivation Recs: continue PO Valtrex 500 mg PO qday renally adjusted total 10 days (day 7 of 10) ok to d/c from ID stand point Will follow. Manuela Pacheco MD Infectious Diseases [employer] [facility] ([facility]) M [phone] O [phone] Subjective Date of service: 08/06/19 Principal diagnosis: shortness of breath Interval history: Feels better, lip improving drying out, no fever, no headache. Objective - Exam Narrative Exam: Constitutional: Alert, cooperative. No acute distress Head, Ears, Nose: Normocephalic, atraumatic. External ears, nose normal. Eyes: Conjunctivae/corneas clear. No icterus. No ptosis. Neck: Supple, no meningeal signs Oral: crusted papular lesions on top and lower lip, improved. No thrush, no oral mucosa involvement. Cardiovascular: S1, S2 normal. Respiratory: Good air entry, clear to auscultation bilaterally GI: Soft, non-tender; bowel sounds normal. No peritoneal signs. Musculoskeletal: No pedal edema, no cyanosis. Left AVG + Skin: No rash or abscess Hem/Lymphatic: No palpable cervical or supraclavicular nodes. No lymphangitis Psych: Mood ok. Affect normal Neurological: Awake, alert, oriented. - Constitutional Vitals: Vital Signs Temp Pulse Resp BP Pulse Ox 98.7 F 85 20 102/49 91 08/06/19 04:10 08/06/19 10:00 08/06/19 10:00 08/06/19 04:10 08/06/19 04:10 Temperature -Last 24 Hours Temperature 98.7 F Temperature 98.8 F Temperature 98.5 F Temperature 98.9 F Temperature 97.9 F - Labs CBC & Chem 7: 08/05/19 08:53 08/05/19 08:53
--- NOTE | 2019-08-06 12:43 | Progress Note ---
Subjective - Reason for Consult Consult date: 08/06/19 Reason for consult: Psychiatry Follow-up - Chief Complaint Chief complaint: "I'm not sleeping well at night" 54 year old male seen for psychiatric evaluation on the medical floor. Today the patient was calm and cooperative during the assessment. The patient is more engaging. He was able to state his and name the cuurrent/past [place] Presidents when asked. He stated that he is having issues with initiating sleep at night. He denies SI/HI's and AVH's. No paranoia was observed by the patient. Mental Status Exam - Vital signs Last Vital Signs Temp 98.7 F 08/06/19 04:10 Pulse 85 08/06/19 10:00 Resp 20 08/06/19 10:00 BP 102/49 08/06/19 04:10 Pulse Ox 91 08/06/19 04:10 - Exam Narrative exam: MSE: Appearance: calm, cooperative Behavior: somewhat poor eye contact Speech: regular rate and tone Mood: "well" Affect: congruent to mood Thought Process: circumstantial Thought Content: denies SI/HI's and AVH's Motor Activity: lying in bed Cognition: A/O x 3 Insight: fair Judgment: fair Assessment and Plan Impression: Encephalopathy secondary to medical causes. Insomnia. Today the patient was calm during the assessment. The patient's mental status have improved. Recommendation/Plan: Start Melatonin 5 mg PO HS for sleep. Will staff with Dr John Paige.
[2019-08-06 12:53] LABS: Basophils CSF 0 %; Total Cells Counted 22 /mm3
[2019-08-06] MEDS: ENOXAPARIN 30 MG/0.3 ML INJ SUB-Q SCH (15:01)
[2019-08-06] MEDS: valACYclovir 500 MG TAB PO SCH (15:21)
[2019-08-06] MEDS: MELATONIN 5 MG TAB PO SCH (21:06)
[2019-08-07] MEDS: MORPHINE 2 MG/1 ML INJ IV PRN ×3 (01:57→21:23)
[2019-08-07] MEDS: ACYCLOVIR TP SCH ×5 (06:26→21:22)
[2019-08-07] MEDS: valACYclovir 500 MG TAB PO SCH (09:53)
[2019-08-07] MEDS: ENOXAPARIN 30 MG/0.3 ML INJ SUB-Q SCH (10:00)
--- NOTE | 2019-08-07 10:18 | Progress Note ---
Assessment and Plan Assessment and plan: 54 YO Male with ESRD on HD readmitted to ICU for Acute Respiratory Failure Suspected secondary to Air Embolism. Pt discharged from ICU and transferred to [facility], in [place], [place]. Pt transferred to [facility]. Pt admitted to ICU. Pt seen and evaluated in his room upon arrival. Pt denies fever, chills, CP, Palpitations, NVD, Trauma, or recent ill contacts. Pt acknowledges painful blisters around his mouth. Nephrology consulted upon arrival. Pulmonary team consulted upon arrival. * Hyperbaric treatment was not done Metabolic encephalopathy Metabolic encephalopathy, resolved, now at baseline. Initial workup negative. although at this time, I am not sure what the utility will show considering patient on Medication. Perioral dermatitis Old dermatitis appears to be scabbing and improving. It was extensive. Patient takes acyclovir. Acute respiratory failure with hypoxia Better. ESRD (end stage renal disease) On hemodialysis SIRS (systemic inflammatory response syndrome) Resolving. Afebrile more alert. Could be secondary to perioral dermatitis LP done, not consistent with meningitis History Interval history: Mouth and lip sores bleed from lip crusts Hospitalist Physical - Physical exam Narrative exam: Gen: Not in acute distress, lying in bed,morbidly obese HEENT: Mouth and lip sores with mild dried blood, Neck: supple, no JVD Heart: S1 and S2 reg, no murmurs, rubs or gallop Lungs: Clear to auscultation bilaterally, Abd: soft, non tender, non distended, normal BS, Ext: No edema, no clubbing, no cyanosis Neuro: Awake, alert, oriented X 3, no focal neurological signs - Constitutional Vitals: Temp Pulse Resp BP Pulse Ox 97.3 F L 95 H 20 108/65 91 08/07/19 04:14 08/07/19 04:14 08/07/19 06:35 08/07/19 04:14 08/07/19 04:14 Results - Labs CBC & Chem 7: 08/05/19 08:53 08/05/19 08:53 Labs: Laboratory Last Values WBC 11.0 K/mm3 (4.5-11.0) 08/05/19 08:53 RBC 2.78 M/mm3 (3.65-5.03) L 08/05/19 08:53 Hgb 8.2 gm/dl (11.8-15.2) L 08/05/19 08:53 Hct 24.6 % (35.5-45.6) L 08/05/19 08:53 MCV 89 fl (84-94) 08/05/19 08:53 MCH 30 pg (28-32) 08/05/19 08:53 MCHC 33 % (32-34) 08/05/19 08:53 RDW 14.0 % (13.2-15.2) 08/05/19 08:53 Plt Count 410 K/mm3 (140-440) 08/05/19 08:53 Lymph % (Auto) 24.7 % (13.4-35.0) 08/05/19 08:53 [place] % (Auto) 9.1 % (0.0-7.3) H 08/05/19 08:53 Eos % (Auto) 2.0 % (0.0-4.3) 08/05/19 08:53 Baso % (Auto) 1.3 % (0.0-1.8) 08/05/19 08:53 Lymph # 2.7 K/mm3 (1.2-5.4) 08/05/19 08:53 [place] # 1.0 K/mm3 (0.0-0.8) H 08/05/19 08:53 Eos # 0.2 K/mm3 (0.0-0.4) 08/05/19 08:53 Baso # 0.1 K/mm3 (0.0-0.1) 08/05/19 08:53 Add Manual Diff Complete 08/01/19 06:26 Total Counted 100 08/01/19 06:26 Seg Neutrophils % 62.9 % (40.0-70.0) 08/05/19 08:53 Seg Neuts % (Manual) 82.0 % (40.0-70.0) H 08/01/19 06:26 Band Neutrophils % 2.0 % 08/01/19 06:26 Lymphocytes % (Manual) 7.0 % (13.4-35.0) L 08/01/19 06:26 Reactive Lymphs % (Man) 0 % 08/01/19 06:26 Monocytes % (Manual) 7.0 % (0.0-7.3) 08/01/19 06:26 Eosinophils % (Manual) 0 % (0.0-4.3) 08/01/19 06:26 Basophils % (Manual) 1.0 % (0.0-1.8) 08/01/19 06:26 Metamyelocytes % 1.0 % 08/01/19 06:26 Myelocytes % 0 % 08/01/19 06:26 Promyelocytes % 0 % 08/01/19 06:26 Blast Cells % 0 % 08/01/19 06:26 Nucleated RBC % Not Reportable 08/01/19 06:26 Seg Neutrophils # 6.9 K/mm3 (1.8-7.7) 08/05/19 08:53 Seg Neutrophils # Man 13.6 K/mm3 (1.8-7.7) H 08/01/19 06:26 Band Neutrophils # 0.3 K/mm3 08/01/19 06:26 Lymphocytes # (Manual) 1.2 K/mm3 (1.2-5.4) 08/01/19 06:26 Abs React Lymphs (Man) 0.0 K/mm3 08/01/19 06:26 Monocytes # (Manual) 1.2 K/mm3 (0.0-0.8) H 08/01/19 06:26 Eosinophils # (Manual) 0.0 K/mm3 (0.0-0.4) 08/01/19 06:26 Basophils # (Manual) 0.2 K/mm3 (0.0-0.1) H 08/01/19 06:26 Metamyelocytes # 0.2 K/mm3 08/01/19 06:26 Myelocytes # 0.0 K/mm3 08/01/19 06:26 Promyelocytes # 0.0 K/mm3 08/01/19 06:26 Blast Cells # 0.0 K/mm3 08/01/19 06:26 WBC Morphology Not Reportable 08/01/19 06:26 Hypersegmented Neuts Not Reportable 08/01/19 06:26 Hyposegmented Neuts Not Reportable 08/01/19 06:26 Hypogranular Neuts Not Reportable 08/01/19 06:26 Smudge Cells Not Reportable 08/01/19 06:26 Toxic Granulation Not Reportable 08/01/19 06:26 Toxic Vacuolation Not Reportable 08/01/19 06:26 Dohle Bodies Not Reportable 08/01/19 06:26 Pelger-Huet Anomaly Not Reportable 08/01/19 06:26 Mago Rods Not Reportable 08/01/19 06:26 Platelet Estimate Consistent w auto 08/01/19 06:26 Clumped Platelets Not Reportable 08/01/19 06:26 Plt Clumps, EDTA Not Reportable 08/01/19 06:26 Large Platelets Few 08/01/19 06:26 Giant Platelets Not Reportable 08/01/19 06:26 Platelet Satelliting Not Reportable 08/01/19 06:26 Plt Morphology Comment Not Reportable 08/01/19 06:26 RBC Morphology Not Reportable 08/01/19 06:26 Dimorphic RBCs Not Reportable 08/01/19 06:26 Polychromasia Not Reportable 08/01/19 06:26 Hypochromasia Not Reportable 08/01/19 06:26 Poikilocytosis Not Reportable 08/01/19 06:26 Anisocytosis 1+ 08/01/19 06:26 Microcytosis Not Reportable 08/01/19 06:26 Macrocytosis Not Reportable 08/01/19 06:26 Spherocytes Not Reportable 08/01/19 06:26 Pappenheimer Bodies Not Reportable 08/01/19 06:26 Sickle Cells Not Reportable 08/01/19 06:26 Target Cells Not Reportable 08/01/19 06:26 Tear Drop Cells Not Reportable 08/01/19 06:26 Ovalocytes Not Reportable 08/01/19 06:26 Helmet Cells Not Reportable 08/01/19 06:26 [place] Bodies Not Reportable 08/01/19 06:26 [place] Rings Not Reportable 08/01/19 06:26 Noemi Cells Not Reportable 08/01/19 06:26 Bite Cells Not Reportable 08/01/19 06:26 Crenated Cell Not Reportable 08/01/19 06:26 Elliptocytes Not Reportable 08/01/19 06:26 Acanthocytes (Spur) Not Reportable 08/01/19 06:26 Rouleaux Not Reportable 08/01/19 06:26 Hemoglobin C Crystals Not Reportable 08/01/19 06:26 Schistocytes Not Reportable 08/01/19 06:26 Malaria parasites Not Reportable 08/01/19 06:26 Shahriar Bodies Not Reportable 08/01/19 06:26 Hem Pathologist Commnt No 08/01/19 06:26 PT 15.9 Sec. (12.2-14.9) H 08/05/19 08:53 INR 1.29 (0.87-1.13) H 08/05/19 08:53 Sodium 139 mmol/L (137-145) 08/05/19 08:53 Potassium 4.6 mmol/L (3.6-5.0) 08/05/19 08:53 Chloride 90.1 mmol/L (98-107) L 08/05/19 08:53 Carbon Dioxide 18 mmol/L (22-30) L 08/05/19 08:53 Anion Gap 36 mmol/L 08/05/19 08:53 BUN 114 mg/dL (9-20) H 08/05/19 08:53 Creatinine 13.7 mg/dL (0.8-1.5) H 08/05/19 08:53 Estimated GFR 5 ml/min 08/05/19 08:53 BUN/Creatinine Ratio 8 % 08/05/19 08:53 Glucose 82 mg/dL (75-100) 08/05/19 08:53 POC Glucose 83 (70-105) 08/03/19 12:40 Calcium 9.4 mg/dL (8.4-10.2) 08/05/19 08:53 Total Bilirubin 0.30 mg/dL (0.1-1.2) 08/01/19 06:26 AST 17 units/L (5-40) 08/01/19 06:26 ALT 26 units/L (7-56) 08/01/19 06:26 Alkaline Phosphatase 97 units/L (35-129) 08/01/19 06:26 Total Protein 6.9 g/dL (6.3-8.2) 08/01/19 06:26 Albumin 3.1 g/dL (3.9-5) L 08/01/19 06:26 Albumin/Globulin Ratio 0.8 % 08/01/19 06:26 CSF Appearance Clear 08/06/19 10:20 CSF Color Colorless 08/06/19 10:20 CSF WBC 4 /mm3 (1-10) 08/06/19 10:20 CSF RBC 3 /mm3 (0-0) 08/06/19 10:20 CSF Seg Neutrophils 4.5 % (0-6) 08/06/19 10:20 CSF Lymphocytes % 31.8 % (40-80) 08/06/19 10:20 CSF Reactive Lymphs 0 % 08/06/19 10:20 CSF Monocytes % 63.6 % (15-45) 08/06/19 10:20 CSF Eosinophils % 0 % 08/06/19 10:20 CSF Basophils 0 % 08/06/19 10:20 CSF Pathologist Review C 08/06/19 10:20 CSF Glucose 56 mg/dL 08/06/19 10:20 CSF Total Protein 97 mg/dL 08/06/19 10:20 Hepatitis A IgM Ab Non-reactive (NonReactive) 08/01/19 15:26 Hep Bs Antigen Non-reactive (Negative) 08/01/19 15:26 Hep B Core IgM Ab Non-reactive (NonReactive) 08/01/19 15:26 Hepatitis C Antibody Non-reactive (NonReactive) 08/01/19 15:26 HSV I Specific Ab 58.00 Index (<0.90) H 07/31/19 21:42 Group A Strep Rapid Negative (Negative) 07/31/19 22:45 Active Medications - Current Medications Current Medications: Generic Name Dose Route Start Last Admin Trade Name Freq PRN Reason Stop Dose Admin Acyclovir 1 applic 08/02/19 14:00 08/07/19 10:03 Acyclovir TP 1 applic 5XD JOSEFINA Administration Dextrose 50 ml 07/31/19 17:13 D50w (25gm) Syringe IV Q30MIN PRN HYPOGLYCEMIA Protocol Enoxaparin Sodium 30 mg 08/01/19 10:00 08/06/19 15:01 Enoxaparin SUB-Q Not Given QDAY [facility] Epoetin Jose 4,000 unit 08/01/19 11:55 Procrit IV EDITH PRN hemodialysis Sodium Chloride 100 mls @ 999 mls/hr 08/01/19 11:54 Nacl 0.9% IV EDITH PRN Hypotension Melatonin 5 mg 08/06/19 22:00 08/06/19 21:06 Melatonin PO 5 mg QHS JOSEFINA Administration Morphine Sulfate 2 mg 08/03/19 15:11 08/07/19 06:35 Morphine IV 2 mg Q4H PRN Administration Pain, Moderate (4-6) Ondansetron HCl 4 mg 08/03/19 04:23 08/03/19 05:55 Zofran IV 4 mg Q6H PRN Administration Nausea And Vomiting Sodium Chloride 10 ml 07/31/19 22:00 08/07/19 10:02 Sodium Chloride Flush Syringe 10 Ml IV 10 ml BID JOSEFINA Administration Sodium Chloride 10 ml 07/31/19 17:11 Sodium Chloride Flush Syringe 10 Ml IV PRN PRN LINE FLUSH Valacyclovir HCl 500 mg 08/01/19 15:00 08/07/19 09:53 Valtrex PO 500 mg QDAY JOSEFINA Administration Nutrition/Malnutrition Assess - Dietary Evaluation Nutrition/Malnutrition Findings: Nutrition Notes Start: 08/01/19 10:06 Freq: Status: Active Protocol: Document 08/06/19 11:51 GABRIEL (Rec: 08/06/19 12:01 GABRIEL [id number]) Co-Sign 08/06/19 11:51 LP Nutrition Notes Initial or Follow up Reassessment Current Diagnosis CKD (stage V CKD) Other Pertinent Diagnosis ESRD on HD, ARF, SIRS, perioral dermatitis Current Diet Renal Labs/Tests BUN 114 Cr 13.7 Pertinent Medications Reviewed Height 5 ft 6 in Weight 119.8 kg Rose Body Weight (kg) 64.54 BMI 42.6 Weight Status Morbidly Obese Subjective/Other Information F/U for PO and ONS intakes. Pt was NPO due to lumbar puncture procedure today. Pt stated it's hard to eat due to wound on mouth. Stated he hadn't eaten dinner the past night. Pt likes the nepro and hadn't drank any today. Percent of energy/protein needs met: 0%/0% Burn Absent Trauma Absent Minimum of two criteria No physical signs of malnutrition #1 Nutrition Diagnosis Inadequate oral intake Diagnosis Progress(for reassessment Continues documentation) Is patient on ventilator? No Is Patient Ambulatory and/or Out of Bed Yes REE-(Phillips-St. Jeor-ambulatory/OOB) [ 2574.975 NUTR.[id number]] Kcal/Kg value to use for calculation 17 Approximate Energy Requirements Using 2036 kcal/Kg Calculation Used for Recommendations Kcal/kg Additional Notes PRO needs: >110g/day(>1.2g/kg/ AdBW 92kg) Fluid neds: 1-1.5L/day or per MD Nutrition Intervention Change Diet Order: Continue renal diet Add Supplement/Snack (indicate name/kcal Nepro twice a day /protein ) Provides kCal: 850 Provides Protein (gm) 38 Goal #1 Pt meet >80% of kcal/PRO needs via PO and ONS. Follow-Up By: 08/08/19 Additional Comments F/U for PO/ONS intakes.
--- NOTE | 2019-08-07 13:37 | Progress Note ---
Subjective - Reason for Consult Consult date: 08/07/19 Reason for consult: Psychiatry Follow-up - Chief Complaint Chief complaint: "Hello" 54 year old male seen for psychiatric evaluation on the medical floor. Today the patient was calm and cooperative during the assessment. He stated that he slept "well" last night. He stated that he look forward to being discharged. The patient denies SI/HI's and AVH's. He denies any side effects from his medication . Mental Status Exam - Vital signs Last Vital Signs Temp 97.6 F 08/07/19 11:46 Pulse 95 H 08/07/19 04:14 Resp 22 08/07/19 11:46 BP 139/88 08/07/19 11:46 Pulse Ox 91 08/07/19 04:14 - Exam Narrative exam: MSE: Appearance: calm, cooperative Behavior: regular eye contact Speech: regular rate and tone Mood: "okay" Affect: congruent to mood Thought Process: linear Thought Content: denies SI/HI's and AVH's Motor Activity: lying in bed Cognition: A/O x 3 Insight: fair Judgment: fair Assessment and Plan Impression: Encephalopathy secondary to medical causes. Insomnia. No overt psychosis with the patient. Today the patient was calm and cooperative during the assessment. Recommendation/Plan: Continue Melatonin 5 mg PO HS for sleep. Psy sign off. Dispo: The patient can follow up with his PCP. Will staff with Dr John Paige.
[2019-08-07] MEDS ORDERED: MAGIC MOUTHWASH 30ML PO SCH ×2 (14:00→20:00)
--- NOTE | 2019-08-07 14:55 | Progress Note ---
Assessment and Plan Cultures: None this admission. Previous admission cultures reviewed, negative. Outside hospital chart reviewed. A/P: 54-year-old male with ESRD on hemodialysis was recently hospitalized here about 10 days ago with acute respiratory failure initially thought to be secondary to air embolism, and now transferred back: 1) Severe lip and perioral lesions: Improving now with bleeding after traumatic scrubbing. 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 No oral mucosa involvement, no ocular involvement, no rash anywhere else, so SJS/TEN seems less likely. Monitor closely for any changes. 2) ESRD on HD: renally dose Valtrex. 3) Acute encephalopathy: resolved. CSF not c/w meningitis. Given concern for HSV reactivation Recs: mouth care add magic mouth wash apply cool-water soaked compresses for 20-30 min every day and dry by padding carefully, dont scrub stop topical acyclovir as it is causing burning sensation continue PO Valtrex 500 mg PO qday renally adjusted total 10 days (day 8 of 10) ok to d/c from ID stand point Will follow. Manuela Pacheco MD Infectious Diseases Integration Software Engineer [facility] ([facility]) M [phone] O [phone] Subjective Date of service: 08/07/19 Principal diagnosis: shortness of breath Interval history: Feels ok c/o bleeding from lips, no fever, no headache. Objective - Exam Narrative Exam: Constitutional: Alert, cooperative. No acute distress Head, Ears, Nose: Normocephalic, atraumatic. External ears, nose normal. Eyes: Conjunctivae/corneas clear. No icterus. No ptosis. Neck: Supple, no meningeal signs Oral: crusted papular lesions on top and lower lip, some bleeding, improved. No thrush, no oral mucosa involvement. Cardiovascular: S1, S2 normal. Respiratory: Good air entry, clear to auscultation bilaterally GI: Soft, non-tender; bowel sounds normal. No peritoneal signs. Musculoskeletal: No pedal edema, no cyanosis. Left AVG + Skin: No rash or abscess Hem/Lymphatic: No palpable cervical or supraclavicular nodes. No lymphangitis Psych: Mood ok. Affect normal Neurological: Awake, alert, oriented. - Constitutional Vitals: Vital Signs Temp Pulse Resp BP Pulse Ox 97.6 F 95 H 22 139/88 91 08/07/19 11:46 08/07/19 04:14 08/07/19 11:46 08/07/19 11:46 08/07/19 04:14 Temperature -Last 24 Hours Temperature 97.6 F Temperature 97.3 F Temperature 97.7 F - Labs CBC & Chem 7: 08/05/19 08:53 08/05/19 08:53
[2019-08-07] MEDS: MAGIC MOUTHWASH 30ML PO SCH ×2 (15:12→21:28)
--- NOTE | 2019-08-07 16:01 | Discharge Summary ---
Providers - Providers Date of Admission: 07/31/19 19:46 Date of discharge: 08/07/19 Attending physician: JAYCE JOHNSON 07/31/19 17:14 Consult to Physician [CONS] Routine Comment: Consulting Provider: CARLITO DUNBAR Physician Instructions: Reason For Exam: ESRD 08/01/19 10:29 Physical Therapy Evaluation and Treat [CONS] Routine Comment: Reason For Exam: Debility 08/01/19 10:30 Occupational Therapy Evaluate and Treat [CONS] Routine Comment: Reason For Exam: Debility 08/01/19 12:05 Consult to Physician [CONS] Urgent Comment: Consulting Provider: VALERIE DAVID Physician Instructions: Reason For Exam: R/O Shingles 08/02/19 11:43 Consult to Mental Health [CONS] Routine Reason For Exam: congitive decline Place consult to:: mental health Notified:: Phone number called:: [phone] Was contact made?: No Time called:: 12:17 Comment:: no answer Consult to Physician [CONS] Routine Comment: Consulting Provider: ARIELLE DUVALL Physician Instructions: Reason For Exam: congitive decline Primary care physician: [employer] Hospitalization Condition: Fair Hospital course: patient is 54 y/o male originally admitted here at ICU last week with acute respiratory failure and confusion and led to hypotension and 3 pressor requirement. At that time history provided suggested air embolism. Several calls were made to different facilities in [facility] for hyperbaric therapy in a critically ill patient. No local facility accepted him, closest was a center in [facility] who was willing to take patient so was transfered there. They re- imaged and could not find an air embolism so did not treat for air embolism, was only treated for sepsis and sent back here. Patient was re-admitted. Acute Metabolic encephalopathy Metabolic encephalopathy, resolved, now at baseline. Perioral dermatitis Old dermatitis appears to be scabbing and improving. It was extensive. Patient takes acyclovir. Acute respiratory failure with hypoxia managed by pulmonology ESRD (end stage renal disease) On hemodialysis SIRS (systemic inflammatory response syndrome) Resolving. Afebrile more alert. Could be secondary to perioral dermatitis LP done, not consistent with meningitis Total time spent on discharge, 42 mins Disposition: [id number]/[id number] [facility]PT [facility]AB FACILITY - Discharge Diagnoses (1) Morbid obesity with BMI of 40.0-44.9, adult Status: Acute (2) Acute respiratory failure with hypoxia Status: Acute (3) Air embolism Status: Acute Qualifiers: Encounter type: initial encounter Qualified Code(s): T79.0XXA - Air embolism (traumatic), initial encounter (4) ESRD (end stage renal disease) Status: Acute (5) HTN (hypertension) Status: Acute (6) Metabolic encephalopathy Status: Acute (7) Perioral dermatitis Status: Acute (8) SIRS (systemic inflammatory response syndrome) Status: Acute Core Measure Documentation - Palliative Care Palliative Care/ Comfort Measures: Not Applicable - Core Measures Any of the following diagnoses?: none Exam - Constitutional Vitals: Temp Pulse Resp BP Pulse Ox 97.6 F 95 H 22 139/88 91 08/07/19 11:46 08/07/19 04:14 08/07/19 11:46 08/07/19 11:46 08/07/19 04:14 Plan Activity: advance as tolerated Diet: low fat, low cholesterol, low salt, renal, other (Mechanical soft) Special Instructions: other (1. Use magic mouth wash 2. Apply cool-water soaked compresses for 20-30 min every day and dry by padding carefully, dont scrub ) Plan of Treatment: 1.Follow up with Physician at [facility] in 2-3 days. 2.Continue hemodialysis for ESRD as scheduled. 3. Use magic mouth wash 4. Apply cool-water soaked compresses for 20-30 min every day and dry by padding carefully, don't scrub Follow up with: LELAND ZAMORA MD [Staff Physician] - 7 Days MANUEL READ MD [Staff Physician] - 7 Days PRIMARY MD KING [Primary Care Provider] - 7 Days MARCUS VILLATORO MD [Staff Physician] - 7 Days Prescriptions: RX: Nystas/Diphen/Xyl Visc/Mylanta [Magic Mouthwash] 15 ml PO TID 7 Days oral.liqd RX: valACYclovir [Valtrex] 500 mg PO QDAY 3 Days #3 tablet
--- NOTE | 2019-08-07 16:20 | Progress Note ---
Assessment and Plan - Patient Problems (1) HTN (hypertension) Current Visit: Yes Status: Acute Plan to address problem: Hypertension controlled Continue current medications (2) ESRD (end stage renal disease) Current Visit: No Status: Acute Plan to address problem: ESRD on HD - Refused Hemodialysis today - Will Plan for Dialysis tomorrow - Risks discussed. Continue hemodialysis Monday -2K ,2ca 35hco3. (3) Acidosis Current Visit: Yes Status: Acute Plan to address problem: Acidosis 2/2 CKD Will initiate Hemodialysis. (4) Perioral dermatitis Current Visit: Yes Status: Acute Plan to address problem: Perioral dermatitis -concern for Herpes -Positive HSV Currently on valacyclovir ID following Subjective Principal diagnosis: shortness of breath Interval history: 54-year-old gentleman with end-stage renal disease recent concern for air embolism was sensitive [place] but only had declot procedure of his access as there was no air embolism found The patient was seen today Refused dialysis today has had bleeding from the perioral site Discussed risks for not completing dialysis on schedule , say he understands the risks! denies any shortness of breath no lower extremity edema Objective - Vital Signs Vital signs: Vital Signs - 12hr 08/07/19 08/07/19 06:35 11:46 Temperature 97.6 F Respiratory 20 22 Rate Blood Pressure 139/88 - General Appearance General appearance: well-developed, well-nourished EENT: ATNC, PERRL Neck: no JVD Respiratory: Present: Clear to Ascultation Cardiology: regular, S1S2 Gastrointestinal: normal, normoactive bowel sounds Integumentary: rash Neurologic: alert and oriented x3, CN 3-12 intact Psychiatric: mood/affect appropriate - Lab 08/05/19 08:53 08/05/19 08:53 Most recent lab results Calcium 9.4 mg/dL (8.4-10.2) 08/05/19 08:53 Medications & Allergies - Medications Allergies/Adverse Reactions: Allergies No Known Allergies Allergy (Unverified 07/23/19 01:49) Home Medications: Home Medications Medication Instructions Recorded Confirmed Last Taken Type Aspirin [Aspirin BABY CHEW TAB] 81 mg PO QDAY 08/01/19 08/01/19 Unknown History AtorvaSTATin [Lipitor] 40 mg PO QHS 08/01/19 08/01/19 Unknown History Hydralazine HCl 50 mg PO TID 08/01/19 08/01/19 Unknown History Nystas/Diphen/Xyl Visc/Mylanta 15 ml PO TID 7 Days oral.liqd 08/07/19 Unknown Rx [Magic Mouthwash] valACYclovir [Valtrex] 500 mg PO QDAY 3 Days #3 tablet 08/07/19 Unknown Rx Active Medications: Generic Name Dose Route Start Last Admin Trade Name Freq PRN Reason Stop Dose Admin Acyclovir 1 applic 08/02/19 14:00 08/07/19 14:00 Acyclovir TP Not Given 5XD JOSEFINA Dextrose 50 ml 07/31/19 17:13 D50w (25gm) Syringe IV Q30MIN PRN HYPOGLYCEMIA Protocol Enoxaparin Sodium 30 mg 08/01/19 10:00 08/07/19 10:00 Enoxaparin SUB-Q Not Given QDAY JOSEFINA Epoetin Jose 4,000 unit 08/01/19 11:55 Procrit IV EDITH PRN hemodialysis Sodium Chloride 100 mls @ 999 mls/hr 08/01/19 11:54 Nacl 0.9% IV EDITH PRN Hypotension Lidocaine HCl 15 ml 08/07/19 15:00 08/07/19 15:12 Magic Mouthwash PO 15 ml TID JOSEFINA Administration Melatonin 5 mg 08/06/19 22:00 08/06/19 21:06 Melatonin PO 5 mg QHS JOSEFINA Administration Morphine Sulfate 2 mg 08/03/19 15:11 08/07/19 06:35 Morphine IV 2 mg Q4H PRN Administration Pain, Moderate (4-6) Ondansetron HCl 4 mg 08/03/19 04:23 08/03/19 05:55 Zofran IV 4 mg Q6H PRN Administration Nausea And Vomiting Sodium Chloride 10 ml 07/31/19 22:00 08/07/19 10:02 Sodium Chloride Flush Syringe 10 Ml IV 10 ml BID JOSEFINA Administration Sodium Chloride 10 ml 07/31/19 17:11 Sodium Chloride Flush Syringe 10 Ml IV PRN PRN LINE FLUSH Valacyclovir HCl 500 mg 08/01/19 15:00 08/07/19 09:53 Valtrex PO 08/10/19 10:01 500 mg QDAY JOSEFINA Administration
[2019-08-07] MEDS: MELATONIN 5 MG TAB PO SCH (22:41)
[2019-08-08] MEDS: ACYCLOVIR TP SCH (05:06)
[2019-08-08 06:30] LABS: Calcium 9.5 mg/dL (8.4-10.2)
[2019-08-08] MEDS: MAGIC MOUTHWASH 30ML PO SCH (08:21)
[2019-08-08] MEDS: ENOXAPARIN 30 MG/0.3 ML INJ SUB-Q SCH (11:17)
[2019-08-08] MEDS: valACYclovir 500 MG TAB PO SCH (11:19)
[2019-08-08 12:09] VITALS: BP 161/94
== END 2019-08-08 12:30 | DRG 175 ==
LOC: CC1 14:09 → UNDOADMIN 14:09 → CC1 19:46 → 3A 08-01 18:06
PROVIDERS: ADMIT Internal Medicine; ATTEND Internal Medicine
PROC: 5A1D70Z Performance of Urinary Filtration, Intermittent, Less than 6 Hours Per Day (ICD-10-PCS; 2019-08-02)
PROC: 5A1D70Z Performance of Urinary Filtration, Intermittent, Less than 6 Hours Per Day (ICD-10-PCS; 2019-08-05)
PROC: 009U3ZX Drainage of Spinal Canal, Percutaneous Approach, Diagnostic (ICD-10-PCS; principal; 2019-08-06)
PROC: B01B1ZZ Fluoroscopy of Spinal Cord using Low Osmolar Contrast (ICD-10-PCS; 2019-08-06)
DX: T79.0XXA Air embolism (traumatic), initial encounter (principal); J96.01 Acute respiratory failure with hypoxia; N18.6 End stage renal disease; G93.41 Metabolic encephalopathy; I12.0 Hypertensive chronic kidney disease with stage 5 chronic kidney disease or end stage renal disease; E87.2 Acidosis; R65.10 Systemic inflammatory response syndrome (SIRS) of non-infectious origin without acute organ dysfunction; N25.81 Secondary hyperparathyroidism of renal origin; L71.0 Perioral dermatitis; K13.0 Diseases of lips; D64.9 Anemia, unspecified; Z82.49 Family history of ischemic heart disease and other diseases of the circulatory system; Z79.82 Long term (current) use of aspirin; Z79.899 Other long term (current) drug therapy; Z99.2 Dependence on renal dialysis
CPT/HCPCS: 36415; 62270; 71045; 77003; 80048; 80053; 80074; 82947; 82962; 84160; 85007; 85025; 85610; 86592; 86695; 87116; 87430; 87498; 87529; 87799; 89051; G0378; J0696; J1650; J2270; J2405